=== PATIENT | male | born 1985 | race Caucasian/White ===

== ENCOUNTER 2024-03-30 16:18 | Inpatient (IN) | payer MEDICAID, SELFPAY ==
--- NOTE | ~2024-03-30 | CT_ITS ---
CLINICAL HISTORY: elevated lipase, +etoh, epigastric pain CT abdomen and pelvis with contrast Comparison: None Findings: No consolidation or effusion. There is hepatic steatosis. There are 2 separate foci of what is likely transient intussusception 1 in the right upper quadrant best seen on image number 46 of series number 2 and a 2nd in the midline pelvis best seen on image number 56 of series number 2. There is no associated bowel obstruction however there are thickened small bowel folds particularly in the upper abdomen suggesting enteritis. Pelvic contents unremarkable. Normal appendix. The bones are intact. The rest of the GI tract is unremarkable. IMPRESSION: Two areas of transient intussusception as described above associated with thickened small bowel loops particularly in the upper abdomen possibly indicating enteritis. This has been described in patients with celiac disease also associated with elevated lipase. There are no signs of pancreatitis. This document has been electronically signed by: Santy rGiffiths MD on 03/30/2024 20:37:50
--- NOTE | 2024-03-30 16:51 | ED.ALCOHOL ---
HPI - Alcohol General Chief Complaint: Psychiatric Symptoms Stated Complaint: LOOKING FOR DETOX FROM ALCOHOL Time Seen by Provider: 03/30/24 16:32 Source: patient, EMS, RN notes reviewed and old records reviewed Mode of arrival: EMS History of Present Illness ED Provider: Fartun Ventura PA-C HPI narrative: 38-year-old male with a past medical history of ETOH abuse/dependence presenting to the ED via EMS complaining of ETOH intoxication, increasing depression with vague SI and requesting detox. States he is new to the area, originally from [place], did secure a detox bed today in [place], however missed his transportation and an ambulance showed up instead. Admits to drinking about 12 shots daily, last drink at 14:00. Does report history of ETOH withdrawal, denies withdrawal seizures or hallucinations. Denies active drug use other than marijuana, states used to use other illicit substances in the past. Denies known injury/trauma or fall or HI Related Data Allergies Allergy/AdvReac Type Severity Reaction Status Date / Time No Known Allergies Allergy Verified 03/30/24 16:56 Review of Systems Review of Systems: Yes all other systems are reviewed and are negative Constitutional: Constitutional: Reports as per HPI [facility] Past Medical History Attestation statement: The following information was validated with the patient. Source: old records reviewed Social History Social History Advance Directives: No Advance Directives Information Provided: No Physical Exam ED Vital Signs: Vital Signs - 24 hr 03/30/24 16:53 03/30/24 21:03 Temperature 98.1 F 98.7 F Pulse Rate 84 99 Respiratory Rate 16 16 Blood Pressure 119/81 137/97 H Pulse Oximetry 98 95 Oxygen Delivery Method Room Air Room Air BMI result Body Mass Index 23.7 Const Other: + ETOH odor on breath General: cooperative, healthy appearing and no acute distress Orientation/consciousness: patient oriented x3 HENMT Head: Yes normal to inspection and Yes atraumatic Ears: hearing grossly normal bilaterally General nose exam: Normal external nose present Face and sinus: Yes normal facial exam Eyes General: appearance normal, both eyes and all related structures EOM: EOMs intact bilaterally Neck Neck: Yes normal visual inspection and Yes no meningeal signs Resp Effort & Inspection: normal respiratory effort and no respiratory distress Cardio Rate: regular rate GI Inspection: Yes normal to inspection Palpation (GI): Soft to palpation, Tenderness to palpation present (GI) in the epigastrum; with no rebound tenderness, no guarding and not rigid Skin Rashes: no rashes Wounds: no wounds Neuro General: patient oriented x3, tone normal, moves all extremities, no meningeal signs and CN's II-XI intact bilaterally Cranial nerves: Yes CN's II-XII intact bilaterally Extrem General: Yes normal to inspection Course Course Course Narrative: -ethanol 492 -1821--AST/ALT elevated likely from chronic ETOH use. Lipase elevated to 143 > due to patient's epigastric tenderness, and now reported nausea will obtain CT AP for further eval to rule out pancreatitis 2041-- CT abdomen pelvis w IV con IMPRESSION: Two areas of transient intussusception as described above associated with thickened small bowel loops particularly in the upper abdomen possibly indicating enteritis. This has been described in patients with celiac disease also associated with elevated lipase. There are no signs of pancreatitis. > will consult General surgery, Dr. Bartlett > will consult on patient upon admission. Case discussed with hospitalist, Dr. Hurst Medical Decision Making Medical Decision Making MDM Narrative: 38-year-old male with a past medical history of ETOH abuse/dependence presenting to the ED via EMS complaining of ETOH intoxication, increasing depression with vague SI and requesting detox. On exam vital signs stable, NAD, nontoxic appearing, EtOH odor on breath, no evidence of trauma. + vague SI with depression. Abdomen is soft with mild epigastric tenderness > patient attributes this to ulcer. Concern for ETOH dependence/intoxication. Rule out metabolic abnormalities. No evidence of ETOH withdrawal at this time. Concern for possible pancreatitis lower suspicion for cholecystitis/lithiasis at this time Plan: Labs, WOOD, CARE team consult, observe and re-evaluate for clinical sobriety Please refer to course for remaining clinical decision making, interpretation of labs/imaging results, and discussions with consultants and/or family members. Differential Diagnosis Differential Diagnoses: The differential diagnosis associated with the presentation includes As above Admission/Observation Consideration of admission/observation: Escalation of care including admission/observation considered Consult Healthcare Provider Management of the patient was discussed with: Chief Radiology and Behavioral Health Provider Lab Data [facility] Lab Attestation statement: I reviewed the patient's lab results. 03/30/24 17:07 03/30/24 17:07 Labs: Lab Results 03/30/24 03/30/24 Range/Units 17:07 19:23 WBC 4.5 L (4.8-10.8) X10*3/uL RBC 4.74 (4.60-5.80) X10*6/uL Hgb 15.3 (14.0-18.0) g/dl Hct 43.6 (42.0-52.0) % MCV 92.0 (80.0-98.0) fL MCH 32.3 (27.0-33.0) pg MCHC 35.1 (31.0-36.0) g/dl RDW 12.6 (11.0-16.0) % Plt Count 148 L (160-400) X10*3/uL MPV 9.7 (9.4-12.4) fL Immature Gran % (Auto) 0.2 (0.0-0.4) % Neut % (Auto) 61.3 (45-73) % Lymph % (Auto) 31.1 (20-40) % [place] % (Auto) 5.6 (2-11) % Eos % (Auto) 0.9 (0-4) % Baso % (Auto) 0.9 (0-2) % Lymph # (Auto) 1.4 (1.2-4.9) X10*3/uL [place] # (Auto) 0.3 (0.1-1.2) X10*3/uL Eos # (Auto) 0.0 (0.0-0.4) X10*3/uL Baso # (Auto) 0.0 (0.0-0.2) X10*3/uL Abs Immat Gran (auto) 0.01 (0.00-0.03) X10*3/uL Absolute Neuts (auto) 2.7 (2.0-8.3) x10*3/uL Absolute Nucleated RBC 0.000 (0.0-0.012) X10*3/uL Nucleated RBC % (auto) 0.0 (0.0-0.2) /100WBC Sodium 142 (135-145) mmol/L Potassium 3.9 (3.3-5.1) mmol/L Chloride 102 (96-108) mmol/L Carbon Dioxide 29 (22-29) mmol/L Anion Gap 15 (12-20) BUN 8 L (9-16) mg/dL Creatinine 0.69 (0.5-1.4) mg/dL Estim Creat Clear Calc 152.8 Estimated GFR > 60 Random Glucose 98 (60-115) mg/dL Calcium 8.6 (8.4-10.2) mg/dL Magnesium 2.3 (1.6-2.6) mg/dL Total Bilirubin 0.5 (0.0-1.0) mg/dL Direct Bilirubin 0.2 (0.0-0.5) mg/dL AST 154 H (5-37) U/L ALT 86 H (0-40) U/L Alkaline Phosphatase 66 (39-117) U/L Total Protein 7.8 (6.5-8.0) g/dL Albumin 4.4 (3.5-5.0) g/dL Lipase 143 H (8-78) U/L Salicylates < 5.0 L (15-30) mg/dL Urine Opiates Screen Not Detected (Not Detect) Ur Buprenorphine Scrn Not Detected (Not Detect) ng/mL Ur Oxycodone Screen Not Detected (Not Detect) ng/mL Urine Methadone Screen Not Detected (Not Detect) ng/mL Urine Fentanyl Screen Not Detected (Not Detect) Acetaminophen < 3 (<30) mcg/mL Ur Barbiturates Screen Not Detected (Not Detect) Ur Phencyclidine Scrn Not Detected (Not Detect) Ur Amphetamines Screen Not Detected (Not Detect) U Benzodiazepines Scrn POSITIVE H (Not Detect) Urine Cocaine Screen Not Detected (Not Detect) U Marijuana (THC) Screen POSITIVE H (Not Detect) Ethyl Alcohol 492 H* mg/dL Radiology Impression Discussion of test interpretation with radiology: I have reviewed the radiologist's reading. Independent Historian Clinical information obtained from an independent historian. History obtained from or confirmed by: EMS External Record Review External record reviewed: Inpatient record, Office record, Outpatient record, Prior outpatient labs, Prior outpatient radiology, Primary care record and Outside ED record Tests considered The following testing was considered but not selected: As above Prescription Management I considered prescription management with: Other Chronic Conditions Patient?s care impacted by: Other Social Determinants Patient?s care significantly limited by Social Determinants of Health including: Other Social Determinant of Health Medications Administered Generic Name Dose Route Start Last Admin Trade Name Freq PRN Reason Stop Dose Admin Lorazepam 1 mg 03/30/24 16:50 03/30/24 19:50 Lorazepam 1 Mg Tablet PO 1 mg Q4H PRN Administration Alcohol Withdrawal Discontinued Medications Generic Name Dose Route Start Last Admin Trade Name Curt PRN Reason Stop Dose Admin Sodium Chloride 1,000 mls @ 999 mls/hr 03/30/24 18:30 03/30/24 19:39 Ns IV 03/30/24 19:30 999 mls/hr .Q1H1M FERMIN Administration Iohexol 100 ml 03/30/24 19:31 03/30/24 19:32 Iohexol 350 Mg/Ml 100 Ml Infus..Btl IV 03/30/24 19:32 85 ml ONCE ONE Administration Ketorolac Tromethamine 15 mg 03/30/24 18:21 03/30/24 19:39 Ketorolac Tromethamine 15 Mg/Ml Vial IVPUSH 03/30/24 18:22 15 mg ONCE ONE Administration Ondansetron HCl 4 mg 03/30/24 18:21 03/30/24 19:39 Ondansetron Hcl 4 Mg/2 Ml Vial IVPUSH 03/30/24 18:22 4 mg ONCE ONE Administration Discharge Plan Discharge Clinical Impression: Intussusception of small bowel, Alcohol intoxication, Depressed, Elevated lipase Patient Disposition: Admitted As Inpatient Print Language: [place]
[2024-03-30 16:53] VITALS: BP 119/81; PULSE 84; RESP 16; TEMP 36.7; O2SAT 98; BMI 23.7
[2024-03-30 17:11] LABS: MANUAL DIFF FLAG NO
[2024-03-30 17:27] LABS: Alanine Aminotransferase 86 U/L (0-40); Albumin Level 4.4 g/dL (3.5-5.0); Alkaline Phosphatase 66 U/L (39-117); Anion Gap 15 (12-20); Aspartate Amino Transferase 154 U/L (5-37); Bilirubin Direct 0.2 mg/dL (0.0-0.5); Bilirubin Total 0.5 mg/dL (0.0-1.0); Blood Urea Nitrogen 8 mg/dL (9-16); Calcium 8.6 mg/dL (8.4-10.2); Carbon Dioxide 29 mmol/L (22-29); Chloride 102 mmol/L (96-108); Creatinine Clr Calc Pharmacy 152.8; Estimated Glomerular Filt Rate > 60; Ethanol 492 mg/dL; Glucose Random 98 mg/dL (60-115); Lipase 143 U/L (8-78); Magnesium 2.3 mg/dL (1.6-2.6); Potassium 3.9 mmol/L (3.3-5.1); Sodium 142 mmol/L (135-145); Total Protein 7.8 g/dL (6.5-8.0)
[2024-03-30 17:28] LABS: Acetaminophen LAB < 3 mcg/mL (<30); Salicylate < 5.0 mg/dL (15-30)
[2024-03-30 17:35] LABS: Basophils Percent Auto 0.9 % (0-2); Eosinophils Percent Auto 0.9 % (0-4); Hematocrit 43.6 % (42.0-52.0); Hemoglobin 15.3 g/dl (14.0-18.0); Imm Gran Abs Auto 0.01 X10*3/uL (0.00-0.03); Imm Gran Pct Auto 0.2 % (0.0-0.4); Lymphocytes Absolute Auto 1.4 X10*3/uL (1.2-4.9); Lymphocytes Percent Auto 31.1 % (20-40); Mean Corpuscular HGB Conc 35.1 g/dl (31.0-36.0); Mean Corpuscular Hemoglobin 32.3 pg (27.0-33.0); Mean Platelet Volume 9.7 fL (9.4-12.4); Monocytes Absolute Auto 0.3 X10*3/uL (0.1-1.2); Monocytes Percent Auto 5.6 % (2-11); Neutrophils Absolute Auto 2.7 x10*3/uL (2.0-8.3); Neutrophils Percent Auto 61.3 % (45-73); Platelet Count 148 X10*3/uL (160-400); Red Blood Count 4.74 X10*6/uL (4.60-5.80); Red Cell Distribution Width 12.6 % (11.0-16.0); White Blood Count 4.5 X10*3/uL (4.8-10.8)
[2024-03-30] MEDS: iohexoL 350 MG/ML 100 ML INFUS..BTL IV (19:32)
--- NOTE | 2024-03-30 19:32 | PC.NURSE ---
pt to ct at this time. jesse jeffers
[2024-03-30] MEDS: Ketorolac Tromethamine 15 MG/ML VIAL IVPUSH (19:39)
[2024-03-30] MEDS: 0.9 % Sodium Chloride 1,000 ML 999 ML IV (19:39)
[2024-03-30] MEDS: ondansetron HCL 4 MG/2 ML VIAL IVPUSH (19:39)
[2024-03-30 19:42] LABS: Amphetamine Screen Urine Not Detected (Not Detect); Barbiturates, Urine Not Detected (Not Detect); Benzodiazepines Screen Urine POSITIVE (Not Detect); Buprenorphine Scr Not Detected (Not Detect); Cannabinoid Screen Urine POSITIVE (Not Detect); Cocaine Screen Urine Not Detected (Not Detect); Fentanyl, urine Not Detected (Not Detect); Methadone Screen, Urine Not Detected (Not Detect); Opiate Screen Urine Not Detected (Not Detect); Oxycodone Screen Urine Not Detected (Not Detect); Phencyclidine Screen Urine Not Detected (Not Detect)
[2024-03-30] MEDS: LORazepam 1 MG TABLET PO (19:50)
[2024-03-30 21:03] VITALS: BP 137/97; PULSE 99; RESP 16; TEMP 37.1; O2SAT 95
--- NOTE | 2024-03-30 21:03 | PM.IMHP ---
History of Present Illness Date of Service: 03/30/24 Attending physician on admission: Calvin Cuellar Chief Complaint: Alcohol detox Pt is a 38-year-old male with a PMH significant for?alcohol use disorder with hx of withdrawal who presents to the ED seeking detox. Pt reports has been on a ?[place]? for awhile, drinking 12-14 shots of vodka daily for the past 4 months. Pt reports he is has had increasing depression and ?dark thoughts? with vague SI. Pt however denies any specific plan and reports he does not intend to follow through with any harmful thoughts. Pt was supposed to go to detox at a facility in [place], however missed his transportation there which prompted his girlfriend to call 911 to bring him to the hospital. The pt reports has had some nausea and vomiting, especially with p.o. intake. Reports he has not been able to eat much of anything except soup recently. Also complains of substernal epigastric burning sensation associated with p.o. intake. Also reports for the past few weeks has gotten intermittent lower abdominal stomach cramps that are sharp and shooting. Has also been experiencing some loose stool. Denies tremors. No auditory, visual, or tactile hallucinations. No diaphoresis. Some increase in anxiety. Denies chest pain/pressure, palpitations. No fever, chills. Denies headache. In the ED pt was tachycardic up to 99 and mildly hypertensive at 137/97. Labs were significant for lipase 143, AST 154, ALT 86. Ethyl alcohol level 492. No significant electrolyte abnormalities. Renal function WNL. CT?of abdomen and pelvis found 2 areas of transient intestine exception with question of enteritis. Pt was treated with IVF, ketorolac, ondansetron, and lorazepam. Pt will be admitted to the hospital for treatment and further evaluation of question of intussusception and impending alcohol withdrawal. Review of Systems Review of Systems: Negative except for that which is stated in the [facility] Medical History (Updated 03/30/24 @ 21:53 by RICHARD Mohamud) Alcohol use disorder Social History Alcohol intake: current Alcohol intake frequency: other Alcohol type: hard liquor Substance Use Type: Marijuana Meds Allergies Allergy/AdvReac Type Severity Reaction Status Date / Time No Known Allergies Allergy Verified 03/30/24 16:56 Active Medications: Current Medications Lorazepam (Lorazepam 1 Mg Tablet) 1 mg PO Q4H PRN PRN Reason: Alcohol Withdrawal Last Admin: 03/30/24 19:50 Dose: 1 mg Home Medications ?Medication ?Instructions ?Recorded ?Confirmed ?Last Taken ?Type No Known Home Meds 03/30/24 03/30/24 Unknown History Physical Exam Vital Signs and Narrative: Vital Signs: Last Vital Signs Temp 98.1 F 03/30/24 16:53 Pulse 84 03/30/24 16:53 Resp 16 03/30/24 16:53 BP 119/81 03/30/24 16:53 Pulse Ox 98 03/30/24 16:53 O2 Del Method Room Air 03/30/24 16:53 BMI result Body Mass Index 23.7 General: AOx3, no acute distress Resp: CTA bilaterally CVS: S1, S2, RRR GI: +BS, NT, no distention Skin: Warm, dry Neuro: Cranial nerves II-XII grossly intact bilaterally. Motor grossly intact bilaterally. No upper extremity tremors noted. No tongue fasciculations. Pt not Extremities: No edema Psych: Appropriate affect Results Labs 03/30/24 17:07 03/30/24 17:07 Labs: Laboratory Results - last 24 hr 03/30/24 03/30/24 17:07 19:23 MCV 92.0 MCH 32.3 MCHC 35.1 RDW 12.6 Plt Count 148 L MPV 9.7 Immature Gran % (Auto) 0.2 Neut % (Auto) 61.3 Lymph % (Auto) 31.1 [place] % (Auto) 5.6 Eos % (Auto) 0.9 Baso % (Auto) 0.9 Lymph # (Auto) 1.4 [place] # (Auto) 0.3 Eos # (Auto) 0.0 Baso # (Auto) 0.0 Abs Immat Gran (auto) 0.01 Absolute Neuts (auto) 2.7 Absolute Nucleated RBC 0.000 Nucleated RBC % (auto) 0.0 Anion Gap 15 Estim Creat Clear Calc 152.8 Estimated GFR > 60 Random Glucose 98 Calcium 8.6 Magnesium 2.3 Total Bilirubin 0.5 Direct Bilirubin 0.2 AST 154 H ALT 86 H Alkaline Phosphatase 66 Total Protein 7.8 Albumin 4.4 Lipase 143 H Salicylates < 5.0 L Urine Opiates Screen Not Detected Ur Buprenorphine Scrn Not Detected Ur Oxycodone Screen Not Detected Urine Methadone Screen Not Detected Urine Fentanyl Screen Not Detected Acetaminophen < 3 Ur Barbiturates Screen Not Detected Ur Phencyclidine Scrn Not Detected Ur Amphetamines Screen Not Detected U Benzodiazepines Scrn POSITIVE H Urine Cocaine Screen Not Detected U Marijuana (THC) Screen POSITIVE H Ethyl Alcohol 492 H* Assessment and Plan (1) Intussusception of small bowel: Status: Acute Plan Pt is a 38-year-old male with a PMH significant for?alcohol use disorder with hx of withdrawal who presents to the ED seeking detox. Pt will be admitted to the hospital for treatment and further evaluation of question of intussusception and impending alcohol withdrawal. Alcohol use disorder With likely impending alcohol withdrawal Pt has been drinking heavily with the past 4 weeks Hx of withdrawal, no hx of withdrawal seizures or auditory/visual/tactile hallucinations Phenobarb protocol started in the ED Daily multivitamin, folic acid, thiamine Protonix CIWA Follow lytes, Mag Question of intussusception CT of abdomen/pelvis showing 2 areas of likely transient intussusception Pt with intermittent lower abdominal sharp and stabbing pain and associated loose stools Abdominal exam benign Currently mild nausea, no vomiting Clear liquid diet now, NPO after midnight General surgery consult Full Code Attending:?Dr. Hurst DVT Prophylaxis: Lovenox Pt will require a hospitalization of at least two nights for treatment and further evaluation of likely transient intussusception and impending alcohol withdrawal. Pt will require hospital level care for administration of phenobarb protocol, close monitoring of labs and cardiac function, as well as specialist consultation general surgery. Quality Stroke Does the patient have a stroke diagnosis?: No VTE Prior VTE?: No VTE Risk Level:: Medical - moderate - high VTE Device Contraindication: Treatment Not Indicated VTE Drug Contraindication: N/A - Med Ordered
--- NOTE | 2024-03-30 21:11 | PC.NURSE ---
pt has old bruising to his left lower back and right mid back. pt states these are old and the staging of the bruising reflexs this. pt states his girlfriend would know more due to the pt was intoxicated for both falls. pt does smoke day almost daily. pt drank vodka on pint prior to arrival. pt seeking detox. plan is to admit pt for medical. pt states his stools have only been watery and explains the dx of his condition. pt is calm and cooperative, sitter at bedside arms length away and pt is having pleasant converstaion with sitter.
--- NOTE | 2024-03-30 21:33 | PHA.MEDREC ---
Pharmacy Consult ? Medication Reconciliation Pharmacy has completed the medication reconciliation. Spoke to patient to confirm med list. Patient states he should be taking Gabapentin 600 mg TID, however he has been off of his medications for over 6 months.
[2024-03-30 23:00] VITALS: BP 137/97; PULSE 99; RESP 16; TEMP 37.1
[2024-03-30 23:01] VITALS: BP 137/97; PULSE 99; RESP 16; TEMP 37.1
[2024-03-30] MEDS: PHENobarbitaL sodium 130 MG/ML IM ONCE 292 MG IM (23:02)
[2024-03-30] MEDS: Pantoprazole Sodium 40 MG/10 ML VIAL IVPUSH (23:04)
[2024-03-30] MEDS: Thiamine HCL 100 MG in 0.9 % Sodium Chloride 100 ML 202 MG IV (23:05)
[2024-03-30 23:29] VITALS: BP 119/74; PULSE 95; RESP 18; TEMP 37.4; O2SAT 98
[2024-03-30] MEDS: Dextrose 5 % and 0.45 % NaCl 1,000 ML 100 ML IVCONT (23:37)
[2024-03-31] VITALS (7 sets, daily range): BP systolic 102–150; BP diastolic 69–89; PULSE 80–99; RESP 12–20; TEMP 36.2–36.9; O2SAT 95–98
--- NOTE | 2024-03-31 02:58 | MHC.EDTECH ---
Pt triaged 03/30/24 @ 1012, Pt initially started in pod and brought to main ED. No belonging list done, no note on this. T/w found belongings in 5 locker labeled - bag with a pair of shoes in it, bag full of clothes and backpack. Did not open any belongings. Pt medically admitted, so belongings moved to shelf 3 in health systemt. Laura DOMINGUEZ aware.
[2024-03-31] MEDS: PHENobarbitaL sodium 130 MG/ML VIAL IM Q3Hx2 219 MG IM ×2 (03:05→06:12)
--- NOTE | 2024-03-31 04:21 | PC.NURSE ---
pt belonging were in the [facility], no lable in the book. belongings taken from the pod to the [facility] and now up with the pt to [id number]. transport with nancy and this alexis Sanchez.
--- NOTE | 2024-03-31 04:27 | PC.NURSE ---
pt transfered with security and tech to 385
--- NOTE | 2024-03-31 04:57 | PC.ADMIT ---
Patient arrived to med/surg unit at approximately 0430 with sitter for SI. He is pleasant, calm, cooperative. Scoring a 5 on the CIWA scale. He reports first time getting phenobarbital and it made him sleepy. He denies ever having a seizure. Reports living with girlfriend in a home. Daily 12 shot/day drinker and smokes marijuana, not cigarettes. Does not want nicotine replacement or the flu shot. I hate needles . He reports moving to [place] 6 months ago and just got insurance. He wasnt taking any of the meds he used to take. He reports Gabapentin really helped him with anxiety. He states he doesnt trust himself with anything stronger. He denies current thoughts of SI. He reports his only concern is that his bowels have been gross lately and that he has to defacate a few times a day, never completely emptying with ribbon like greasy stool. He states he thinks he might have an ulcer. He is aware of the CT scan and the consult for General Surgery and why he cannot take anything by mouth currently. His VSS, lungs are cta, abdomen is soft with slight tenderness in his epigastric region. No issues voiding or ambulating. No acute events. Will continue to monitor.
[2024-03-31 06:34] LABS: MANUAL DIFF FLAG NO
[2024-03-31 06:48] LABS: Basophils Percent Auto 0.7 % (0-2); Eosinophils Absolute Auto 0.1 X10*3/uL (0.0-0.4); Eosinophils Percent Auto 1.6 % (0-4); Hematocrit 37.1 % (42.0-52.0); Hemoglobin 12.6 g/dl (14.0-18.0); Imm Gran Abs Auto 0.01 X10*3/uL (0.00-0.03); Imm Gran Pct Auto 0.2 % (0.0-0.4); Lymphocytes Percent Auto 36.4 % (20-40); Mean Corpuscular Hemoglobin 31.5 pg (27.0-33.0); Mean Corpuscular Volume 92.8 fL (80.0-98.0); Monocytes Absolute Auto 0.4 X10*3/uL (0.1-1.2); Monocytes Percent Auto 6.3 % (2-11); Neutrophils Percent Auto 54.8 % (45-73); Red Cell Distribution Width 12.5 % (11.0-16.0); White Blood Count 5.5 X10*3/uL (4.8-10.8)
[2024-03-31 07:03] LABS: Alanine Aminotransferase 66 U/L (0-40); Albumin Level 3.6 g/dL (3.5-5.0); Alkaline Phosphatase 53 U/L (39-117); Anion Gap 13 (12-20); Aspartate Amino Transferase 111 U/L (5-37); Bilirubin Total 0.8 mg/dL (0.0-1.0); Blood Urea Nitrogen 9 mg/dL (9-16); Calcium 7.1 mg/dL (8.4-10.2); Carbon Dioxide 26 mmol/L (22-29); Chloride 101 mmol/L (96-108); Creatinine Clr Calc Pharmacy 152.8; Estimated Glomerular Filt Rate > 60; Glucose Random 79 mg/dL (60-115); Magnesium 1.7 mg/dL (1.6-2.6); Potassium 3.4 mmol/L (3.3-5.1); Sodium 137 mmol/L (135-145); Total Protein 6.2 g/dL (6.5-8.0)
[2024-03-31 07:38] LABS: Mean Platelet Volume 9.8 fL (9.4-12.4); Platelet Count 96 X10*3/uL (160-400)
[2024-03-31] MEDS: Pantoprazole Sodium 40 MG/10 ML VIAL IVPUSH (08:38)
[2024-03-31] MEDS: Dextrose 5 % and 0.45 % NaCl 1,000 ML 100 ML IVCONT ×2 (08:38→18:35)
[2024-03-31] MEDS: Enoxaparin Sodium 40 MG/0.4 ML SYRINGE SUBCUT (08:38)
[2024-03-31] MEDS: Multivitamin TABLET 1 TAB PO (08:40)
[2024-03-31] MEDS: Thiamine HCL 100 MG in 0.9 % Sodium Chloride 100 ML 202 MG IV (08:46)
[2024-03-31] MEDS: LORazepam 1 MG TABLET PO ×2 (08:46→20:22)
--- NOTE | 2024-03-31 11:01 | MHC.CM.PN ---
CM ATTEMPTED TO MEET WITH PT X3, PT OUT OF ROOM CM WILL REVISIT
--- NOTE | 2024-03-31 12:25 | PM.CNGS ---
History of Present Illness Consult details Consult date: 03/31/24 <Essence Owen PA-C - Last Filed: 03/31/24 12:39> Reason for consult: other (question intussusception ) <Essence Owen PA-C - Last Filed: 03/31/24 12:39> Requesting physician: Tasha Lee <Essence Owen PA-C - Last Filed: 03/31/24 12:39> Narrative: 38-year-old male with a PMH significant for alcohol use disorder with hx of withdrawal who initally presented to the ED seeking detox. Pt reports has been drinking 12-14 shots of vodka daily for the past 4 months and then beer over the past week. He reported some abdominal pain on presentation and therefore CT scan abd pelvis was obtained which showed 2 separate areas of target sign and intussusception, in the RUQ and midline pelvis, with mild wall thickening, without proximally dilated bowel loops, distended stomach. Given the CT findings general surgery was consulted. He reports intermittent mild crampy lower abd pain that was relieved by moving his bowels in the beginning of the week. This has resolved. He then reports some mild epigastric pain later in the week associated with some nausea which he contributes to switching to beer and the carbonation. He denies sick contacts. The diarrhea has since resolved and he has not vomited in a few days. This morning he denies any abdominal pain currently. He had a normal BM yesterday and has been passing flatus consistently. He feels hungry. He reports a very distant hx of hernia repair with mesh as a young child, unsure what kind. <Essence Owen PA-C - Last Filed: 03/31/24 12:39> Review of Systems Review of Systems: Yes all other systems are reviewed and are negative <Essence Owen PA-C - Last Filed: 03/31/24 12:39> [facility] Past Medical History Medical History: Medical History Alcohol use disorder <Essence Owen PA-C - Last Filed: 03/31/24 12:39> Social History Social History: Social History Household Members: Significant Other Housing: House Do you presently have visiting nurse or other home services: No Alcohol intake: current Alcohol intake frequency: other Alcohol type: hard liquor Patient Tobacco Use Status: Never used Tobacco Second Hand Smoke Exposure: No Substance Use Type: Marijuana <Essence Owen PA-C - Last Filed: 03/31/24 12:39> Meds Allergies/Adverse reactions: Allergies Allergy/AdvReac Type Severity Reaction Status Date / Time No Known Allergies Allergy Verified 03/30/24 16:56 <Essence Owen PA-C - Last Filed: 03/31/24 12:39> Active Medications: Current Medications Acetaminophen (Acetaminophen 325 Mg Tablet) 650 mg PO Q6H PRN PRN Reason: Pain, Mild 1-3,fever,headache Enoxaparin Sodium (Enoxaparin Sodium 40 Mg/0.4 Ml Syringe) 40 mg SUBCUT Q24H [facility] Last Admin: 03/31/24 08:38 Dose: 40 mg Dextrose/Sodium Chloride (D51/2ns) 1,000 mls @ 100 mls/hr IVCONT .Q10H [facility] Last Admin: 03/31/24 08:38 Dose: 100 mls/hr Thiamine HCl 100 mg/ Sodium (Chloride) 101 mls @ 202 mls/hr IV DAILY [facility] Last Infusion: 03/31/24 09:31 Dose: Infused Lorazepam (Lorazepam 1 Mg Tablet) 1 mg PO Q4H PRN PRN Reason: Alcohol Withdrawal Last Admin: 03/31/24 08:46 Dose: 1 mg Multivitamins/Vitamin C (Multivitamin Tablet) 1 tab PO DAILY [facility] Last Admin: 03/31/24 08:40 Dose: 1 tab Ondansetron HCl (Ondansetron Hcl 4 Mg/2 Ml Vial) 4 mg IVPUSH Q8H PRN PRN Reason: Nausea and Vomiting Pantoprazole Sodium (Pantoprazole Sodium 40 Mg/10 Ml Vial) 40 mg IVPUSH BID@0630,1630 [facility] Last Admin: 03/31/24 08:38 Dose: 40 mg Pharmacy Consult (Consult Rx Etoh Phenob Im/Po) 1 each MISCELLANE ONCE PRN; Protocol PRN Reason: Consult order Phenobarbital (Phenobarbital 15 Mg Tablet) 45 mg PO BID@1100,2300 [facility]; Protocol Stop: 04/01/24 23:01 Phenobarbital (Phenobarbital 30 Mg Tablet) 30 mg PO BID [facility]; Protocol Stop: 04/03/24 21:01 Phenobarbital (Phenobarbital 30 Mg Tablet) 30 mg PO DAILY [facility]; Protocol Stop: 04/05/24 09:01 Sodium Chloride (0.9 % Sodium Chloride Flush 3 Ml Syringe) 3 ml IVFLUSH QSHIFT [facility] Last Admin: 03/31/24 08:40 Dose: Not Given <TOYA Estrada Last Filed: 03/31/24 12:39> Home medications: Home Medications ?Medication ?Instructions ?Recorded ?Confirmed ?Last Taken ?Type No Known Home Meds 03/30/24 03/30/24 Unknown History <TOYA Estrada Last Filed: 03/31/24 12:39> Physical Exam Vital Signs: Vital Signs: Last Vital Signs Temp 98.1 F 03/31/24 12:20 Pulse 86 03/31/24 12:20 Resp 12 03/31/24 12:20 BP 131/78 03/31/24 12:20 Pulse Ox 95 03/31/24 12:20 O2 Del Method Room Air 03/31/24 12:20 BMI result Body Mass Index 23.7 <TOYA Estrada Last Filed: 03/31/24 12:39> Const: General: comfortable, no acute distress and alert; No ill appearing <TOYA Estrada Last Filed: 03/31/24 12:39> Orientation/consciousness: patient oriented x3 <TOYA Estrada Last Filed: 03/31/24 12:39> Resp: Effort & Inspection: normal respiratory effort <TOYA Estrada Last Filed: 03/31/24 12:39> GI: Inspection: Yes normal to inspection, No distended and No scar <TOYA Estrada Last Filed: 03/31/24 12:39> Palpation (GI): Soft to palpation, nontender, no guarding and not rigid <TOYA Estrada Last Filed: 03/31/24 12:39> Percussion: Yes normal to percussion <TOYA Estrada Last Filed: 03/31/24 12:39> Skin: General skin exam: no rashes or lesions noted <TOYA Estrada Last Filed: 03/31/24 12:39> Neuro: General: patient oriented x3 and moves all extremities <TOYA Estrada Last Filed: 03/31/24 12:39> Results Labs Result diagrams: 03/31/24 06:08 03/31/24 06:08 <TOYA Estrada Last Filed: 03/31/24 12:39> Labs: Abnormal lab results 03/30/24 03/30/24 03/31/24 Range/Units 17:07 19:23 06:08 WBC 4.5 L (4.8-10.8) X10*3/uL RBC 4.00 L (4.60-5.80) X10*6/uL Hgb 12.6 L (14.0-18.0) g/dl Hct 37.1 L (42.0-52.0) % Plt Count 148 L 96 L D (160-400) X10*3/uL BUN 8 L (9-16) mg/dL Calcium 7.1 L D (8.4-10.2) mg/dL AST 154 H 111 H (5-37) U/L ALT 86 H 66 H (0-40) U/L Total Protein 6.2 L (6.5-8.0) g/dL Lipase 143 H (8-78) U/L Salicylates < 5.0 L (15-30) mg/dL U Benzodiazepines Scrn POSITIVE H (Not Detect) U Marijuana (THC) Screen POSITIVE H (Not Detect) Ethyl Alcohol 492 H* mg/dL Short CBC 03/30/24 03/31/24 Range/Units 17:07 06:08 WBC 4.5 L 5.5 (4.8-10.8) X10*3/uL Hgb 15.3 12.6 L (14.0-18.0) g/dl Hct 43.6 37.1 L (42.0-52.0) % Plt Count 148 L 96 L D (160-400) X10*3/uL BMP 03/30/24 03/31/24 17:07 06:08 Sodium 142 137 Potassium 3.9 3.4 Chloride 102 101 Carbon Dioxide 29 26 BUN 8 L 9 Creatinine 0.69 0.69 Calcium 8.6 7.1 L D Liver Function 03/30/24 03/31/24 Range/Units 17:07 06:08 Total Bilirubin 0.5 0.8 (0.0-1.0) mg/dL Direct Bilirubin 0.2 (0.0-0.5) mg/dL AST 154 H 111 H (5-37) U/L ALT 86 H 66 H (0-40) U/L Alkaline Phosphatase 66 53 (39-117) U/L Albumin 4.4 3.6 (3.5-5.0) g/dL All other labs normal. <Essence Owen PA-C - Last Filed: 03/31/24 12:39> Imaging Abdomen CT scan report/results: report reviewed and image reviewed <Essence Owen PA-C - Last Filed: 03/31/24 12:39> Assessment and Plan (1) Intussusception of small bowel: Status: Acute <Essence Owen PA-C - Last Filed: 03/31/24 12:39> Admitted for EtOH intoxication Noted to have target sign and a CT scan of the abdomen - had elevated lipase Patient denies abdominal pain No nausea or vomiting Abdomen soft, benign, nontender, nondistended Clinically not obstructed Intussusception seen likely due to normal peristaltic movement of the small bowel Okay to have clear liquids and slowly advance as tolerated Seen and examined independently <Gal Figueroa MD - Last Filed: 03/31/24 14:12> 38 year old male with hx of ETOH abuse initially seeking detox found to have intussusception on CT scan. He is clinically appearing well and his abdomen is benign, soft, nondistended and completely non tender. Imaging reviewed which does show two areas of target signs with mild wall thickening however there is no dilatation of proximal bowel and he has good air distally in the rectum. No leukocytosis. May have had transient intussusception due to enteritis given his history and the mild wall thickening however he is clinically not obstructed and his symptoms have resolved. Can advance diet to clears and then further as tolerated. Will continue to follow. <Essence Owen PA-C - Last Filed: 03/31/24 12:39> Procedures Date of Service Date of Service: 03/31/24 <Essence Owen PA-C - Last Filed: 03/31/24 12:39> 03/31/24 <Gal Figueroa MD - Last Filed: 03/31/24 14:12>
[2024-03-31] MEDS: PHENobarbitaL 15 MG TABLET 45 MG PO ×2 (13:13→22:47)
--- NOTE | 2024-03-31 15:07 | PM.PSYCN ---
History of Present Illness Date of Service: 03/31/2024 Chief Complaint: Alcohol intoxication, ? intussusception Reason for Consult: SI, intermittent Discussed with referring provider: Yes Sources of Information: patient interviewed, chart reviewed and crisis/core team assessment reviewed HPI Narrative: Mr. Khan is a 38 year-old male with hx of alcohol use disorder, MDD, who self presented to [facility] ED requesting detox. He was admitted medically for phenobarb protocol for alcohol withdrawal, and evaluation of possible intussuspection. BAL 492. Utox positive for canabinoids and benzodiazepines. BAL>400. Pt seen in his room. He reports he has been feeling more depressed in the past 4 months. He reports he recently moved from [place] to [facility]. He does not have health insurance and has not been able to see mental health provider. He endorses depressed mood, anhedonia, hopelessness. He denies any plan or intent to harm himself. He reports he reported suicidal ideation with the hope to get help for both mental health and substance use. He reports he has been drinking daily 10 shots of vodka and beer. No hx of VH/AH. No delusions. Past Psychiatric History: Inpt: reports multiple inpt last one about 2 years ago at [facility]. OP: none Past medication trials: reports he had sexual side effects with most SSRIs. Remeron was helpful. He has been on naltrexon which reports did not make much of a difference. He reports disulfiram helped.. but does not take it when he drinks. Hx of suicide attempts: more than 10 years ago via OD and cutting his wrist. Medical Evaluation Reviewed: Yes [facility] Medical History (Updated 03/31/24 @ 15:52 by Suzanne Meza NP) Alcohol use disorder Diagnostics Vital Signs (24Hr): Vital Signs - 24 hr 03/30/24 16:53 03/30/24 21:03 03/30/24 23:00 Temperature 98.1 F 98.7 F 98.7 F Pulse Rate 84 99 99 Respiratory Rate 16 16 16 Blood Pressure 119/81 137/97 H 137/97 H Pulse Oximetry 98 95 Oxygen Delivery Method Room Air Room Air 03/30/24 23:01 03/30/24 23:29 03/31/24 04:08 Temperature 98.7 F 99.4 F Pulse Rate 99 95 83 Respiratory Rate 16 18 14 Blood Pressure 137/97 H 119/74 102/69 Pulse Oximetry 98 98 Oxygen Delivery Method Room Air Room Air 03/31/24 04:30 03/31/24 07:49 03/31/24 12:20 Temperature 97.2 F 97.9 F 98.1 F Pulse Rate 80 88 86 Respiratory Rate 18 18 12 Blood Pressure 134/83 117/70 131/78 Pulse Oximetry 97 96 95 Oxygen Delivery Method Room Air Room Air Room Air BMI result Body Mass Index 23.7 Labs 03/31/24 06:08 03/31/24 06:08 Labs: Laboratory Results - last 48 hr 03/30/24 03/30/24 03/31/24 17:07 19:23 06:08 WBC 4.5 L 5.5 RBC 4.74 4.00 L Hgb 15.3 12.6 L Hct 43.6 37.1 L MCV 92.0 92.8 MCH 32.3 31.5 MCHC 35.1 34.0 RDW 12.6 12.5 Plt Count 148 L 96 L D MPV 9.7 9.8 Immature Gran % (Auto) 0.2 0.2 Neut % (Auto) 61.3 54.8 Lymph % (Auto) 31.1 36.4 [place] % (Auto) 5.6 6.3 Eos % (Auto) 0.9 1.6 Baso % (Auto) 0.9 0.7 Lymph # (Auto) 1.4 2.0 [place] # (Auto) 0.3 0.4 Eos # (Auto) 0.0 0.1 Baso # (Auto) 0.0 0.0 Abs Immat Gran (auto) 0.01 0.01 Absolute Neuts (auto) 2.7 3.0 Absolute Nucleated RBC 0.000 0.000 Nucleated RBC % (auto) 0.0 0.0 Sodium 142 137 Potassium 3.9 3.4 Chloride 102 101 Carbon Dioxide 29 26 Anion Gap 15 13 BUN 8 L 9 Creatinine 0.69 0.69 Estim Creat Clear Calc 152.8 152.8 Estimated GFR > 60 > 60 Random Glucose 98 79 Calcium 8.6 7.1 L D Magnesium 2.3 1.7 Total Bilirubin 0.5 0.8 Direct Bilirubin 0.2 AST 154 H 111 H ALT 86 H 66 H Alkaline Phosphatase 66 53 Total Protein 7.8 6.2 L Albumin 4.4 3.6 Lipase 143 H Salicylates < 5.0 L Urine Opiates Screen Not Detected Ur Buprenorphine Scrn Not Detected Ur Oxycodone Screen Not Detected Urine Methadone Screen Not Detected Urine Fentanyl Screen Not Detected Acetaminophen < 3 Ur Barbiturates Screen Not Detected Ur Phencyclidine Scrn Not Detected Ur Amphetamines Screen Not Detected U Benzodiazepines Scrn POSITIVE H Urine Cocaine Screen Not Detected U Marijuana (THC) Screen POSITIVE H Ethyl Alcohol 492 H* Mental Status Exam Mental Status Exam Narrative: Appearance: wearing hospital gown, fair hygiene, unkempt hair, in NAD Behavior: cooperative Psychomotor: mild action tremor bilar Speech: clear, normal rate/rhythm, volume, spontaneous TP: linear TC: wanting help with dual dx Mood: depressed Affect: congruent SI: denies HI: denies VH/AH: none Delusions: none Insight/judgment: poor x 2. Memory/cog: alert, oriented x 4. grossly intact to conversational testing. Medications Medications Current Medications Acetaminophen (Acetaminophen 325 Mg Tablet) 650 mg PO Q6H PRN PRN Reason: Pain, Mild 1-3,fever,headache Enoxaparin Sodium (Enoxaparin Sodium 40 Mg/0.4 Ml Syringe) 40 mg SUBCUT Q24H [facility] Last Admin: 03/31/24 08:38 Dose: 40 mg Dextrose/Sodium Chloride (D51/2ns) 1,000 mls @ 100 mls/hr IVCONT .Q10H [facility] Last Admin: 03/31/24 08:38 Dose: 100 mls/hr Thiamine HCl 100 mg/ Sodium (Chloride) 101 mls @ 202 mls/hr IV DAILY [facility] Last Infusion: 03/31/24 09:31 Dose: Infused Lorazepam (Lorazepam 1 Mg Tablet) 1 mg PO Q4H PRN PRN Reason: Alcohol Withdrawal Last Admin: 03/31/24 08:46 Dose: 1 mg Multivitamins/Vitamin C (Multivitamin Tablet) 1 tab PO DAILY [facility] Last Admin: 03/31/24 08:40 Dose: 1 tab Ondansetron HCl (Ondansetron Hcl 4 Mg/2 Ml Vial) 4 mg IVPUSH Q8H PRN PRN Reason: Nausea and Vomiting Pantoprazole Sodium (Pantoprazole Sodium 40 Mg/10 Ml Vial) 40 mg IVPUSH BID@0630,1630 [facility] Last Admin: 03/31/24 08:38 Dose: 40 mg Pharmacy Consult (Consult Rx Etoh Phenob Im/Po) 1 each MISCELLANE ONCE PRN; Protocol PRN Reason: Consult order Phenobarbital (Phenobarbital 15 Mg Tablet) 45 mg PO BID@1100,2300 [facility]; Protocol Stop: 04/01/24 23:01 Last Admin: 03/31/24 13:13 Dose: 45 mg Phenobarbital (Phenobarbital 30 Mg Tablet) 30 mg PO BID [facility]; Protocol Stop: 04/03/24 21:01 Phenobarbital (Phenobarbital 30 Mg Tablet) 30 mg PO DAILY [facility]; Protocol Stop: 04/05/24 09:01 Sodium Chloride (0.9 % Sodium Chloride Flush 3 Ml Syringe) 3 ml IVFLUSH QSHIFT [facility] Last Admin: 03/31/24 14:04 Dose: Not Given Allergies Allergies Allergy/AdvReac Type Severity Reaction Status Date / Time No Known Allergies Allergy Verified 03/30/24 16:56 Assessment & Plan Assessment & Plan (1) MDD (major depressive disorder), recurrent episode, moderate: Status: Acute Code(s): F33.1 - Major depressive disorder, recurrent, moderate (2) Alcohol use disorder, severe, dependence: Status: Acute Code(s): F10.20 - Alcohol dependence, uncomplicated Plan Mr. Khan is a 38 year-old male with hx of alcohol use disorder, MDD, self presented to [facility] ED asking for detox, medically admitted for phenobarb protocol for alcohol withdrawal. Also has intussesception of small bowel. He reported SI, intermittent and had siter with him. He denies any plan or intent to harm himself. He asks for help connecting with programs for mental health and alcohol use disorder. He reports he used to be on gabapentin which was helpful and would like to resume it. He also reports he was on remeron with good effect. PLAN 1. No need for sitter. No imminent harm to self or others. 2. He is interested in PHP or IOP once medically clear- please consult care team once he is medically clear. 3. restart gabapentin at lower dose 300mg po TID, can increase to 600mg po TID if no over sedation 4. restart remeron 15mg po qhs, can increase in next day or two to 30mg po qhs. Total time managing care of this patient today ____ minutes.
--- NOTE | 2024-03-31 15:27 | HO.ADDICT_ITS ---
History of Present Illness Date of Service: 03/31/24 Chief Complaint: Alcohol intoxication, ? intussusception Reason for Consult: AUD Sources of Information: patient interviewed and chart reviewed HPI Narrative: Patient is a 38 year old male medically admitted with acute alcohol withdrawal and question of intussusception. Consult requested to address alcohol use disorder. Patient seen in room 385. Awake, alert, pleasant and engaged in interview. He reports long history of alcohol use disorder, with several periods of abstinence throughout. Most recently has been drinking at least 12 vodka nips daily. Drinks straight, no mixers. Reports at least 10 ATS admissions for alcohol use Denies any history of seizures or medical previous medical admissions related to alcohol use. Problematic drinking started in his teens following accidental opiate overdose, which resulted in patient d/c opiate use and increasing alcohol use. Strong family history of AUD He is very knowledgeable regarding recovery supports, but he is new to [place] and requesting more local options State he has trialed naltrexone, acamprosate and disulfiram He found disulfiram helpful-- Reports history--depression Previously prescribed mirtazipine and gabapentin which he found helpful Denies any legal issues related to alcohol, but does report relationship impacted by alcohol use. Not employed at the moment--reports he stopped working due to worsening alcohol use Withdrawal well managed with phenobarb protocol mild tremor noted during assessment, denies n/v, headache Review of Systems Constitutional: Reports as per HPI Diagnostics Vital Signs (24Hr): Vital Signs - 24 hr 03/30/24 16:53 03/30/24 21:03 03/30/24 23:00 Temperature 98.1 F 98.7 F 98.7 F Pulse Rate 84 99 99 Respiratory Rate 16 16 16 Blood Pressure 119/81 137/97 H 137/97 H Pulse Oximetry 98 95 Oxygen Delivery Method Room Air Room Air 03/30/24 23:01 03/30/24 23:29 03/31/24 04:08 Temperature 98.7 F 99.4 F Pulse Rate 99 95 83 Respiratory Rate 16 18 14 Blood Pressure 137/97 H 119/74 102/69 Pulse Oximetry 98 98 Oxygen Delivery Method Room Air Room Air 03/31/24 04:30 03/31/24 07:49 03/31/24 12:20 Temperature 97.2 F 97.9 F 98.1 F Pulse Rate 80 88 86 Respiratory Rate 18 18 12 Blood Pressure 134/83 117/70 131/78 Pulse Oximetry 97 96 95 Oxygen Delivery Method Room Air Room Air Room Air BMI result Body Mass Index 23.7 Labs 03/31/24 16:42 03/31/24 06:08 Labs: Laboratory Results - last 48 hr 03/30/24 03/30/24 03/31/24 17:07 19:23 06:08 WBC 4.5 L 5.5 RBC 4.74 4.00 L Hgb 15.3 12.6 L Hct 43.6 37.1 L MCV 92.0 92.8 MCH 32.3 31.5 MCHC 35.1 34.0 RDW 12.6 12.5 Plt Count 148 L 96 L D MPV 9.7 9.8 Immature Gran % (Auto) 0.2 0.2 Neut % (Auto) 61.3 54.8 Lymph % (Auto) 31.1 36.4 [place] % (Auto) 5.6 6.3 Eos % (Auto) 0.9 1.6 Baso % (Auto) 0.9 0.7 Lymph # (Auto) 1.4 2.0 [place] # (Auto) 0.3 0.4 Eos # (Auto) 0.0 0.1 Baso # (Auto) 0.0 0.0 Abs Immat Gran (auto) 0.01 0.01 Absolute Neuts (auto) 2.7 3.0 Absolute Nucleated RBC 0.000 0.000 Nucleated RBC % (auto) 0.0 0.0 Sodium 142 137 Potassium 3.9 3.4 Chloride 102 101 Carbon Dioxide 29 26 Anion Gap 15 13 BUN 8 L 9 Creatinine 0.69 0.69 Estim Creat Clear Calc 152.8 152.8 Estimated GFR > 60 > 60 Random Glucose 98 79 Calcium 8.6 7.1 L D Magnesium 2.3 1.7 Total Bilirubin 0.5 0.8 Direct Bilirubin 0.2 AST 154 H 111 H ALT 86 H 66 H Alkaline Phosphatase 66 53 Total Protein 7.8 6.2 L Albumin 4.4 3.6 Lipase 143 H Salicylates < 5.0 L Urine Opiates Screen Not Detected Ur Buprenorphine Scrn Not Detected Ur Oxycodone Screen Not Detected Urine Methadone Screen Not Detected Urine Fentanyl Screen Not Detected Acetaminophen < 3 Ur Barbiturates Screen Not Detected Ur Phencyclidine Scrn Not Detected Ur Amphetamines Screen Not Detected U Benzodiazepines Scrn POSITIVE H Urine Cocaine Screen Not Detected U Marijuana (THC) Screen POSITIVE H Ethyl Alcohol 492 H* Mental Status Exam Mental Status Exam Patient Appearance: Appropriate Level of Consciousness: Awake, Appropriate and Alert Patient Behavior: Appropriate, Talkative and Cooperative Mood Description: Calm Affect Description: Calm Speech Pattern: Clear Memory Description: Intact Hallucinations: None Delusions: Not Present Thought Process: Intact Thought Content: positive for Intact Judgement: Good Medications Medications Current Medications Acetaminophen (Acetaminophen 325 Mg Tablet) 650 mg PO Q6H PRN PRN Reason: Pain, Mild 1-3,fever,headache Enoxaparin Sodium (Enoxaparin Sodium 40 Mg/0.4 Ml Syringe) 40 mg SUBCUT Q24H [facility] Last Admin: 03/31/24 08:38 Dose: 40 mg Gabapentin (Gabapentin 300 Mg Capsule) 300 mg PO TID [facility] Dextrose/Sodium Chloride (D51/2ns) 1,000 mls @ 100 mls/hr IVCONT .Q10H [facility] Last Admin: 03/31/24 08:38 Dose: 100 mls/hr Thiamine HCl 100 mg/ Sodium (Chloride) 101 mls @ 202 mls/hr IV DAILY [facility] Last Infusion: 03/31/24 09:31 Dose: Infused Lorazepam (Lorazepam 1 Mg Tablet) 1 mg PO Q4H PRN PRN Reason: Alcohol Withdrawal Last Admin: 03/31/24 08:46 Dose: 1 mg Mirtazapine (Mirtazapine 15 Mg Tablet) 15 mg PO BEDTIME [facility] Multivitamins/Vitamin C (Multivitamin Tablet) 1 tab PO DAILY [facility] Last Admin: 03/31/24 08:40 Dose: 1 tab Ondansetron HCl (Ondansetron Hcl 4 Mg/2 Ml Vial) 4 mg IVPUSH Q8H PRN PRN Reason: Nausea and Vomiting Pantoprazole Sodium (Pantoprazole Sodium 40 Mg/10 Ml Vial) 40 mg IVPUSH BID@0630,1630 [facility] Last Admin: 03/31/24 08:38 Dose: 40 mg Pharmacy Consult (Consult Rx Etoh Phenob Im/Po) 1 each MISCELLANE ONCE [facility]N; Protocol PRN Reason: Consult order Phenobarbital (Phenobarbital 15 Mg Tablet) 45 mg PO BID@1100,2300 [facility]; Protocol Stop: 04/01/24 23:01 Last Admin: 03/31/24 13:13 Dose: 45 mg Phenobarbital (Phenobarbital 30 Mg Tablet) 30 mg PO BID [facility]; Protocol Stop: 04/03/24 21:01 Phenobarbital (Phenobarbital 30 Mg Tablet) 30 mg PO DAILY [facility]; Protocol Stop: 04/05/24 09:01 Sodium Chloride (0.9 % Sodium Chloride Flush 3 Ml Syringe) 3 ml IVFLUSH QSHIFT [facility] Last Admin: 03/31/24 14:04 Dose: Not Given Allergies Allergies Allergy/AdvReac Type Severity Reaction Status Date / Time No Known Allergies Allergy Verified 03/30/24 16:56 Assessment & Plan Assessment & Plan (1) Alcohol use disorder, severe, dependence: Status: Acute Code(s): F10.20 - Alcohol dependence, uncomplicated Assessment and Plan: * risk reduction discussion--provided with resources and discussed safer drinking strategies * patient plans to start disulfiram once he gets home. Has a prescription from previous provider * open to receiving follow up call from field reimbursement manager, to determine if he would like to follow up outpatient at [facility] Total time managing care of this patient today __40__ minutes. PMFSH Past Medical History Medical History (Updated 03/31/24 @ 15:52 by Suzanne Meza NP) Alcohol use disorder Social History Social History Household Members: Significant Other Housing: House Do you presently have visiting nurse or other home services: No Alcohol intake: current Alcohol intake frequency: other Alcohol type: hard liquor Patient Tobacco Use Status: Never used Tobacco Second Hand Smoke Exposure: No Substance Use Type: Marijuana
--- NOTE | 2024-03-31 15:52 | P.PNIM_ITS ---
Subjective Subjective Date of Service: 03/31/24 Interval History: seen and examined this morning follow up for n/v/d reporting epigastric abdominal pain, dark liquid diarrhea Review of Systems Review of Systems: Yes all other systems are reviewed and are negative Constitutional Constitutional: Denies chills and Denies fever(s) Cardiovascular Cardiovascular: Denies chest pain, Denies palpitations and Denies dyspnea Respiratory Respiratory: Denies cough and Denies dyspnea Gastrointestinal Gastrointestinal: Reports abdominal pain and Reports nausea Endocrine Endocrine: Denies palpitations Physical Exam 2 Vital Signs: Vital Signs: Last Vital Signs Temp 98.1 F 03/31/24 15:38 Pulse 95 03/31/24 15:38 Resp 20 03/31/24 15:38 BP 150/88 H 03/31/24 15:38 Pulse Ox 98 03/31/24 15:38 O2 Del Method Room Air 03/31/24 15:38 BMI result Body Mass Index 23.7 Const: General: comfortable, alert and awake Nutritional Appearance: a verage body habitus Orientation/consciousness: patient oriented x3 Resp: Effort & Inspection: normal respiratory effort, able to speak in complete sentences, no respiratory distress and no use of accessory muscles A uscultation: clear to auscultation bilaterally Cardio: Rate: regular rate GI: Other: epigastric tenderness Inspection: No distended Palpation (GI): Soft to palpation Neuro: General: patient oriented x3, moves all extremities and CN's II-XI intact bilaterally Extrem: General: Yes no pedal edema Objective Data Active Medications Acetaminophen (Acetaminophen 325 Mg Tablet) 650 mg PO Q6H PRN PRN Reason: Pain, Mild 1-3,fever,headache Enoxaparin Sodium (Enoxaparin Sodium 40 Mg/0.4 Ml Syringe) 40 mg SUBCUT Q24H [facility] Last Admin: 03/31/24 08:38 Dose: 40 mg Documented By: MERCED Gabapentin (Gabapentin 300 Mg Capsule) 300 mg PO TID [facility] Dextrose/Sodium Chloride (D51/2ns) 1,000 mls @ 100 mls/hr IVCONT .Q10H [facility] Last Admin: 03/31/24 08:38 Dose: 100 mls/hr Documented By: MERCED Thiamine HCl 100 mg/ Sodium (Chloride) 101 mls @ 202 mls/hr IV DAILY [facility] Last Infusion: 03/31/24 09:31 Dose: Infused Documented By: MERCED Lorazepam (Lorazepam 1 Mg Tablet) 1 mg PO Q4H PRN PRN Reason: Alcohol Withdrawal Last Admin: 03/31/24 08:46 Dose: 1 mg Documented By: MERCED Mirtazapine (Mirtazapine 15 Mg Tablet) 15 mg PO BEDTIME [facility] Multivitamins/Vitamin C (Multivitamin Tablet) 1 tab PO DAILY [facility] Last Admin: 03/31/24 08:40 Dose: 1 tab Documented By: MERCED Ondansetron HCl (Ondansetron Hcl 4 Mg/2 Ml Vial) 4 mg IVPUSH Q8H PRN PRN Reason: Nausea and Vomiting Pantoprazole Sodium (Pantoprazole Sodium 40 Mg/10 Ml Vial) 40 mg IVPUSH BID@0630,1630 [facility] Last Admin: 03/31/24 08:38 Dose: 40 mg Documented By: MERCED Pharmacy Consult (Consult Rx Etoh Phenob Im/Po) 1 each MISCELLANE ONCE PRN; Protocol PRN Reason: Consult order Phenobarbital (Phenobarbital 15 Mg Tablet) 45 mg PO BID@1100,2300 [facility]; Protocol Stop: 04/01/24 23:01 Last Admin: 03/31/24 13:13 Dose: 45 mg Documented By: MERCED Phenobarbital (Phenobarbital 30 Mg Tablet) 30 mg PO BID [facility]; Protocol Stop: 04/03/24 21:01 Phenobarbital (Phenobarbital 30 Mg Tablet) 30 mg PO DAILY [facility]; Protocol Stop: 04/05/24 09:01 Sodium Chloride (0.9 % Sodium Chloride Flush 3 Ml Syringe) 3 ml IVFLUSH QSHIFT [facility] Last Admin: 03/31/24 14:04 Dose: Not Given Documented By: MERCED Non-Admin Reason: IV Running Labs 03/31/24 06:08 03/31/24 06:08 Labs: Laboratory Results - last 24 hr 03/30/24 03/30/24 03/31/24 17:07 19:23 06:08 MCV 92.0 92.8 MCH 32.3 31.5 MCHC 35.1 34.0 RDW 12.6 12.5 Plt Count 148 L 96 L D MPV 9.7 9.8 Immature Gran % (Auto) 0.2 0.2 Neut % (Auto) 61.3 54.8 Lymph % (Auto) 31.1 36.4 Cuming % (Auto) 5.6 6.3 Eos % (Auto) 0.9 1.6 Baso % (Auto) 0.9 0.7 Lymph # (Auto) 1.4 2.0 Cuming # (Auto) 0.3 0.4 Eos # (Auto) 0.0 0.1 Baso # (Auto) 0.0 0.0 Abs Immat Gran (auto) 0.01 0.01 Absolute Neuts (auto) 2.7 3.0 Absolute Nucleated RBC 0.000 0.000 Nucleated RBC % (auto) 0.0 0.0 Anion Gap 15 13 Estim Creat Clear Calc 152.8 152.8 Estimated GFR > 60 > 60 Random Glucose 98 79 Calcium 8.6 7.1 L D Magnesium 2.3 1.7 Total Bilirubin 0.5 0.8 Direct Bilirubin 0.2 AST 154 H 111 H ALT 86 H 66 H Alkaline Phosphatase 66 53 Total Protein 7.8 6.2 L Albumin 4.4 3.6 Lipase 143 H Salicylates < 5.0 L Urine Opiates Screen Not Detected Ur Buprenorphine Scrn Not Detected Ur Oxycodone Screen Not Detected Urine Methadone Screen Not Detected Urine Fentanyl Screen Not Detected Acetaminophen < 3 Ur Barbiturates Screen Not Detected Ur Phencyclidine Scrn Not Detected Ur Amphetamines Screen Not Detected U Benzodiazepines Scrn POSITIVE H Urine Cocaine Screen Not Detected U Marijuana (THC) Screen POSITIVE H Ethyl Alcohol 492 H* Assessment and Plan (1) Alcohol use disorder, severe, dependence: Status: Acute Plan This is a 38-year-old male with a PMH significant for?alcohol use disorder with hx of withdrawal who presents to the ED seeking detox and with N/V/D found to have conern for intussusception admitted for further management Alcohol use disorder with alcohol withdrawal continue Phenobarbatol Daily multivitamin, folic acid, thiamine Protonix follow CIWA Follow lytes, Mag possible gi bleeding pt reporting dark vomiting x1 and dark stools ?etoh gastritis continue PPI repeat H/H now GI consult possible intussusception CT of abdomen/pelvis showing 2 areas of likely transient intussusception Abdominal exam benign seen by General surgery, may have had transient intussusception no surgical intervention required advance to clear liquids, continue IVF thrombocytopenia likely due to etoh use transaminitis due to eoth use and hepatic steatosis seen on imaging Full Code DVT Prophylaxis: Lovenox stopped due to possibility of Gi bleeding; mechanical devices Pt will require a hospitalization of at least two nights for treatment and further evaluation of likely transient intussusception and impending alcohol withdrawal. Pt will require hospital level care for administration of phenobarb protocol, close monitoring of labs and cardiac function, as well as specialist consultation general surgery. Quality Stroke Does the patient have a stroke diagnosis?: No VTE Prior VTE?: No VTE Risk Level:: Medical - moderate - high VTE Device Contraindication: Treatment Not Indicated VTE Drug Contraindication: N/A - Med Ordered
[2024-03-31] MEDS: Gabapentin 300 MG CAPSULE PO ×2 (16:34→20:21)
[2024-03-31 17:20] LABS: Hematocrit 37.2 % (42.0-52.0); Hemoglobin 12.6 g/dl (14.0-18.0)
[2024-03-31] MEDS: Mirtazapine 15 MG TABLET PO (20:21)
[2024-04-01] VITALS: BP 134/76; PULSE 80; RESP 18; TEMP 36.6; O2SAT 97
[2024-04-01 04:00] VITALS: BP 139/95; PULSE 80; RESP 16; TEMP 35.9; O2SAT 97
[2024-04-01] MEDS: Dextrose 5 % and 0.45 % NaCl 1,000 ML 100 ML IVCONT (04:10)
[2024-04-01] MEDS: Pantoprazole Sodium 40 MG/10 ML VIAL IVPUSH (05:35)
[2024-04-01 06:55] LABS: Hematocrit 36.3 % (42.0-52.0); Hemoglobin 12.5 g/dl (14.0-18.0); Mean Corpuscular HGB Conc 34.4 g/dl (31.0-36.0); Mean Corpuscular Hemoglobin 32.1 pg (27.0-33.0); Mean Corpuscular Volume 93.3 fL (80.0-98.0); Mean Platelet Volume 10.2 fL (9.4-12.4); Red Blood Count 3.89 X10*6/uL (4.60-5.80); Red Cell Distribution Width 12.1 % (11.0-16.0)
[2024-04-01 07:01] LABS: Platelet Count 72 X10*3/uL (160-400)
[2024-04-01 07:03] LABS: Alanine Aminotransferase 58 U/L (0-40); Albumin Level 3.5 g/dL (3.5-5.0); Alkaline Phosphatase 52 U/L (39-117); Anion Gap 11 (12-20); Aspartate Amino Transferase 96 U/L (5-37); Bilirubin Direct 0.4 mg/dL (0.0-0.5); Blood Urea Nitrogen 5 mg/dL (9-16); Calcium 7.9 mg/dL (8.4-10.2); Carbon Dioxide 26 mmol/L (22-29); Chloride 102 mmol/L (96-108); Creatinine Clr Calc Pharmacy 172.8; Estimated Glomerular Filt Rate > 60; Glucose Random 90 mg/dL (60-115); Magnesium 1.7 mg/dL (1.6-2.6); Sodium 136 mmol/L (135-145); Total Protein 6.1 g/dL (6.5-8.0)
[2024-04-01 07:57] VITALS: BP 125/97; PULSE 108; RESP 18; TEMP 36.1; O2SAT 97
[2024-04-01] MEDS: Thiamine HCL 100 MG in 0.9 % Sodium Chloride 100 ML 202 MG IV (09:17)
[2024-04-01] MEDS: 0.9 % Sodium Chloride Flush 3 ML SYRINGE IVFLUSH (09:17)
[2024-04-01] MEDS: Gabapentin 300 MG CAPSULE PO ×3 (09:26→20:02)
[2024-04-01] MEDS: Multivitamin TABLET 1 TAB PO (09:26)
[2024-04-01] MEDS: Potassium Chloride Packet 20 MEQ PACKET 40 MEQ PO (09:26)
--- NOTE | 2024-04-01 10:26 | MHC.CM.PN ---
PT REPORTS HE RECENTLY MOVED TO THE AREA AND LIVES WITH HIS GIRLFRIEND HE IS INDEPENDENT WITH CARE, USES NO DME AND NO SERVICES PT DOES NOT HAVE A HCP OR PCP LIST AND INSTRUCTIONS ON OBTAINING A PCP PROVIDED PT UNSURE IF HE WILL DC HOME OR TO [facility] DCP TBD PENDING CARE TEAM CONSULT IF PT IS CLEARED TO DC HOME, HE MAY NEED A LYFT ARRANGED
[2024-04-01] MEDS: PHENobarbitaL 15 MG TABLET 45 MG PO (10:36)
[2024-04-01 11:47] VITALS: BP 133/94; PULSE 90; RESP 18; TEMP 37.1; O2SAT 98
--- NOTE | 2024-04-01 12:15 | CONS_ITS ---
DATE OF SERVICE: 04/01/2024 REFERRING PHYSICIAN: RICHARD Garcia REASON FOR CONSULTATION: Alcohol abuse and question of GI bleed. HISTORY OF PRESENT ILLNESS: The patient is a pleasant 38-year-old man who was admitted to the hospital after presenting to the emergency room on March 30. Because of alcohol abuse, requesting detoxification. He has a history of episodic alcohol abuse and reports drinking heavily, 12 to 14 hard liquor drinks on a daily basis over the past 4 to 6 months with associated anxiety and depression. He was evaluated in the emergency department and admitted to the hospital. He has been treated for alcohol withdrawal and did have a blood alcohol level of 492 on admission. Lipase was slightly elevated as were liver function tests and a pattern consistent with alcohol. He underwent imaging with CT scanning, which is reviewed. This is interpreted as showing transient intussusception in 2 areas of the small bowel. He was also noted to have a history of vomiting, dark material and some thickening of small bowel movement loops were noted consistent with enteritis. Since admission, he has been treated with a proton pump inhibitor. His hematocrit has been stable in the mid 30s. He has had no hematemesis or melena. PAST MEDICAL HISTORY: Alcohol abuse as above. He denies other medical or surgical illnesses. CURRENT MEDICATIONS: His current medication list is reviewed in the chart. ALLERGIES: THERE ARE NONE REPORTED. FAMILY HISTORY: This is reviewed with the patient and is noncontributory. SOCIAL HISTORY: He denies substance abuse. REVIEW OF SYSTEMS: SKIN: No pruritus. HEENT: Negative. CARDIOPULMONARY: No shortness of breath or chest pain. GASTROINTESTINAL: As above. GENITOURINARY: Negative. NEUROPSYCHIATRIC: Negative. PHYSICAL EXAMINATION: GENERAL: Shows a pleasant male, lying comfortably in bed. VITAL SIGNS: Reviewed in electronic medical record and are stable. SKIN: Anicteric. HEENT: Shows no scleral icterus. NECK: Without lymphadenopathy or thyromegaly. LUNGS: Clear. HEART: Shows a regular rate and rhythm. S1, S2. No murmur. ABDOMEN: Soft without focal masses or tenderness. Bowel sounds are present. No organomegaly is noted. EXTREMITIES: Without edema. LABORATORY DATA AND IMAGING STUDIES: Reviewed. IMPRESSION: Abdominal pain with history of alcohol abuse. It is likely that he has a component of alcoholic gastritis. I would recommend treating him with a proton pump inhibitor. He can be discharged on this as well and follow up. If he has persistent symptoms, I would recommend upper endoscopy. However, there are no signs of upper GI bleeding at this time. I did discuss with him the need to avoid alcohol because of its negative effects on his GI tract and liver. The area of intussusception described on the CAT scan appears to have been transient. He has been tolerating clear liquids as his diet, and he is currently being advanced to solids. Thanks for asking me to see him. I will follow him in the hospital with you. MD SUDHIR Nam/ABIMAEL / [id number]
--- NOTE | 2024-04-01 15:57 | P.PNIM_ITS ---
Subjective Subjective Date of Service: 04/01/24 Interval History: seen and examined this morning follow up for etoh withdrawal, possible intussusception tolerating diet, k better requested IV out, declines further lab draws Review of Systems Review of Systems: Yes all other systems are reviewed and are negative Constitutional Constitutional: Denies chills and Denies fever(s) Cardiovascular Cardiovascular: Denies chest pain, Denies palpitations and Denies dyspnea Respiratory Respiratory: Denies cough and Denies dyspnea Endocrine Endocrine: Denies palpitations Physical Exam 2 Vital Signs: Vital Signs: Last Vital Signs Temp 98.8 F 04/01/24 11:47 Pulse 90 04/01/24 11:47 Resp 18 04/01/24 11:47 BP 133/94 H 04/01/24 11:47 Pulse Ox 98 04/01/24 11:47 O2 Del Method Room Air 04/01/24 11:47 BMI result Body Mass Index 23.7 Const: General: comfortable, alert and awake Nutritional Appearance: a verage body habitus Orientation/consciousness: patient oriented x3 Resp: Effort & Inspection: normal respiratory effort, able to speak in complete sentences, no respiratory distress and no use of accessory muscles A uscultation: clear to auscultation bilaterally Cardio: Rate: regular rate GI: Inspection: No distended Palpation (GI): Soft to palpation Neuro: General: patient oriented x3, moves all extremities and CN's II-XI intact bilaterally Extrem: General: Yes no pedal edema Objective Data Active Medications Acetaminophen (Acetaminophen 325 Mg Tablet) 650 mg PO Q6H PRN PRN Reason: Pain, Mild 1-3,fever,headache Gabapentin (Gabapentin 300 Mg Capsule) 300 mg PO TID [facility] Last Admin: 04/01/24 14:55 Dose: 300 mg Documented By: ARIS Dextrose/Sodium Chloride (D51/2ns) 1,000 mls @ 100 mls/hr IVCONT .Q10H [facility] Last Admin: 04/01/24 14:54 Dose: Not Given Documented By: ARIS Non-Admin Reason: Patient Refused Thiamine HCl 100 mg/ Sodium (Chloride) 101 mls @ 202 mls/hr IV DAILY [facility] Last Infusion: 04/01/24 10:32 Dose: Infused Documented By: ARIS Lorazepam (Lorazepam 1 Mg Tablet) 1 mg PO Q4H PRN PRN Reason: Alcohol Withdrawal Last Admin: 03/31/24 20:22 Dose: 1 mg Documented By: LAURA Comments: CIWA=6 Mirtazapine (Mirtazapine 15 Mg Tablet) 15 mg PO BEDTIME [facility] Last Admin: 03/31/24 20:21 Dose: 15 mg Documented By: LAURA Multivitamins/Vitamin C (Multivitamin Tablet) 1 tab PO DAILY [facility] Last Admin: 04/01/24 09:26 Dose: 1 tab Documented By: ARIS Ondansetron HCl (Ondansetron Hcl 4 Mg/2 Ml Vial) 4 mg IVPUSH Q8H PRN PRN Reason: Nausea and Vomiting Pantoprazole Sodium (Pantoprazole Sodium 40 Mg/10 Ml Vial) 40 mg IVPUSH BID@0630,1630 [facility] Last Admin: 04/01/24 05:35 Dose: 40 mg Documented By: LAURA Pharmacy Consult (Consult Rx Etoh Phenob Im/Po) 1 each MISCELLANE ONCE PRN; Protocol PRN Reason: Consult order Phenobarbital (Phenobarbital 15 Mg Tablet) 45 mg PO BID@1100,2300 [facility]; Protocol Stop: 04/01/24 23:01 Last Admin: 04/01/24 10:36 Dose: 45 mg Documented By: ARIS Phenobarbital (Phenobarbital 30 Mg Tablet) 30 mg PO BID [facility]; Protocol Stop: 04/03/24 21:01 Phenobarbital (Phenobarbital 30 Mg Tablet) 30 mg PO DAILY [facility]; Protocol Stop: 04/05/24 09:01 Potassium Chloride (Potassium Chloride Packet 20 Meq Packet) 40 meq PO BID [facility] Stop: 04/01/24 21:01 Last Admin: 04/01/24 09:26 Dose: 40 meq Documented By: ARIS Sodium Chloride (0.9 % Sodium Chloride Flush 3 Ml Syringe) 3 ml IVFLUSH QSHIFT [facility] Last Admin: 04/01/24 14:57 Dose: Not Given Documented By: ARIS Non-Admin Reason: No Access Labs 04/01/24 05:58 04/01/24 15:30 Labs: Laboratory Results - last 24 hr 04/01/24 05:58 MCV 93.3 MCH 32.1 MCHC 34.4 RDW 12.1 Plt Count 72 L MPV 10.2 Absolute Nucleated RBC 0.000 Nucleated RBC % (auto) 0.0 Anion Gap 11 L Estim Creat Clear Calc 172.8 Estimated GFR > 60 Random Glucose 90 Calcium 7.9 L D Magnesium 1.7 Total Bilirubin 1.0 Direct Bilirubin 0.4 AST 96 H ALT 58 H Alkaline Phosphatase 52 Total Protein 6.1 L Albumin 3.5 Assessment and Plan (1) MDD (major depressive disorder), recurrent episode, moderate: Status: Acute (2) Alcohol use disorder, severe, dependence: Status: Acute (3) Intussusception of small bowel: Status: Acute Plan This is a 38-year-old male with a PMH significant for?alcohol use disorder with hx of withdrawal who presents to the ED seeking detox and with N/V/D found to have conern for intussusception admitted for further management Alcohol use disorder with alcohol withdrawal continue Phenobarbatol Daily multivitamin, folic acid, thiamine CIWA low seen by addiction medicine-patient has disulfiram from previous provider which he will resume a following discharge He is interested in PHP or IOP once medically clear- please consult care team once he is medically clear Hypokalemia Resolved with replacement possible gi bleeding pt reporting dark vomiting x1 and dark stools - now resolved ?etoh gastritis continue PPI GI consult -H/H stable, recommend p.o. PPI upon discharge. No further workup at this time possible intussusception CT of abdomen/pelvis showing 2 areas of likely transient intussusception Abdominal exam benign seen by General surgery, may have had transient intussusception no surgical intervention required Tolerated diet advancement stop IV fluid thrombocytopenia likely due to etoh use transaminitis due to eoth use and hepatic steatosis seen on imaging Trending down Full Code DVT Prophylaxis: Lovenox stopped due to possibility of Gi bleeding; mechanical devices Pt will require a hospitalization of at least two nights for treatment and further evaluation of likely transient intussusception and impending alcohol withdrawal. Pt will require hospital level care for administration of phenobarb protocol, close monitoring of labs and cardiac function, as well as specialist consultation general surgery. Quality Stroke Does the patient have a stroke diagnosis?: No VTE Prior VTE?: No VTE Risk Level:: Medical - moderate - high VTE Device Contraindication: Treatment Not Indicated VTE Drug Contraindication: N/A - Med Ordered
[2024-04-01 16:17] VITALS: BP 146/90; PULSE 92; RESP 12; TEMP 36.5; O2SAT 98
--- NOTE | 2024-04-01 17:22 | MHC.CARE ---
Patient evaluated by the CARE Team, he does not require inpatient psychiatric admission at this time, multiple outpatient referrals will be made on his behalf. Providers, RICHARD Garcia and Vanessa Tracy RN updated with plan.
[2024-04-01 19:41] VITALS: BP 133/87; PULSE 85; RESP 18; TEMP 36.8; O2SAT 99
[2024-04-01] MEDS: Mirtazapine 15 MG TABLET PO (20:02)
--- NOTE | 2024-04-01 20:49 | PM.DS ---
DS: Providers Provider Date of Service: 04/01/24 Date of admission: 03/30/24 21:31 Date of discharge: 04/01/24 Primary care physician: None Physician Consults: 03/30/24 16:50 Consult to Care Team Stat Comment: Reason for consultation: +depressed w/vague si, +etoh interested in detox. intoxicated 03/30/24 21:35 Consult to General Surgery Routine Consulting Provider: [facility] General Surgeons Reason for consultation: ? Intussusception Has provider been notified: Yes 03/30/24 21:38 Consult to Psychiatry Routine Consulting Provider: [facility] Psych Covering Reason for consultation: EtOH, intermittent SI (not currenlty), depression Has provider been notified: No 03/30/24 21:59 Addiction Medicine Routine Consulting Provider: Addiction Covering Reason for consultation: Alcohol use disorder, seeking detox 03/31/24 15:58 Consult to Gastroenterology Routine Consulting Provider: Holland Pineda Reason for consultation: etoh; gi bleed Has provider been notified: No 04/01/24 14:12 Consult to Care Team Routine Comment: Reason for consultation: medically clear; He is interested in PHP or IOP once medically clear Attending physician on discharge: Marco Antonio Cowart Discharging clinician: Caitlyn Garcia DS: Diagnosis Discharge Diagnosis (1) MDD (major depressive disorder), recurrent episode, moderate: Status: Acute (2) Alcohol use disorder, severe, dependence: Status: Acute (3) Intussusception of small bowel: Status: Acute DS: Summary Hospital Course Hospital Course: From H&P on the day of admission Pt is a 38-year-old male with a PMH significant for?alcohol use disorder with hx of withdrawal who presents to the ED seeking detox. Pt reports has been on a ?[place]? for awhile, drinking 12-14 shots of vodka daily for the past 4 months. Pt reports he is has had increasing depression and ?dark thoughts? with vague SI. Pt however denies any specific plan and reports he does not intend to follow through with any harmful thoughts. Pt was supposed to go to detox at a facility in [place], however missed his transportation there which prompted his girlfriend to call 911 to bring him to the hospital. The pt reports has had some nausea and vomiting, especially with p.o. intake. Reports he has not been able to eat much of anything except soup recently. Also complains of substernal epigastric burning sensation associated with p.o. intake. Also reports for the past few weeks has gotten intermittent lower abdominal stomach cramps that are sharp and shooting. Has also been experiencing some loose stool. Denies tremors. No auditory, visual, or tactile hallucinations. No diaphoresis. Some increase in anxiety. Denies chest pain/pressure, palpitations. No fever, chills. Denies headache. In the ED pt was tachycardic up to 99 and mildly hypertensive at 137/97. Labs were significant for lipase 143, AST 154, ALT 86. Ethyl alcohol level 492. No significant electrolyte abnormalities. Renal function WNL. CT?of abdomen and pelvis found 2 areas of transient intestine exception with question of enteritis. Pt was treated with IVF, ketorolac, ondansetron, and lorazepam. Pt will be admitted to the hospital for treatment and further evaluation of question of intussusception and impending alcohol withdrawal. Alcohol use disorder with alcohol withdrawal treated with Phenobarbatol protocol protocol, multivitamin, folic acid, thiamine CIWA reamained low. seen by addiction medicine-patient has disulfiram from previous provider which he will resume a following discharge He is interested in PHP or IOP once medically clear- was seen by the care team did not meet criteria for IPLOC and ultimately did not wait for any referrals to be made. Hypokalemia Resolved with replacement possible gi bleeding pt reporting dark vomiting x1 and dark stools - now resolved ?etoh gastritis. treated with PPI. Seen by GI, H/H has remained stable, no indication for further work up at this time. recommend p.o. PPI upon discharge possible intussusception CT of abdomen/pelvis showing 2 areas of likely transient intussusception. Abdominal exam has remained benign. seen by General surgery, may have had transient intussusception no surgical intervention required. abdominal pain resolved and diet was advanced. thrombocytopenia and transaminits due to eoth use and hepatic steatosis seen on imaging Recommend outpatient follow-up Time Attestation Discharge Coordination Time (in mins): 35 Quality: Safe Use of Opioids Does Pt have an Active Cancer Diagnosis on the Problem List?: No Quality: Stroke Does the patient have a stroke diagnosis?: No Physical Exam Vital Signs: Vital Signs: Last Vital Signs Temp 98.2 F 04/01/24 19:41 Pulse 85 04/01/24 19:41 Resp 18 04/01/24 19:41 BP 133/87 04/01/24 19:41 Pulse Ox 99 04/01/24 19:41 O2 Del Method Room Air 04/01/24 19:41 BMI result Body Mass Index 23.7 Const: General: alert, awake and Physically active Nutritional Appearance: average body habitus Orientation/consciousness: patient oriented x3 Neuro: General: patient oriented x3 DS: Data Data Completed and Pending Labs on day of discharge: Laboratory Results - last 24 hr 04/01/24 04/01/24 05:58 15:30 WBC 4.0 L RBC 3.89 L Hgb 12.5 L Hct 36.3 L MCV 93.3 MCH 32.1 MCHC 34.4 RDW 12.1 Plt Count 72 L MPV 10.2 Absolute Nucleated RBC 0.000 Nucleated RBC % (auto) 0.0 Sodium 136 Potassium 3.0 L 4.0 D Chloride 102 Carbon Dioxide 26 Anion Gap 11 L BUN 5 L Creatinine 0.61 Estim Creat Clear Calc 172.8 Estimated GFR > 60 Random Glucose 90 Calcium 7.9 L D Magnesium 1.7 Total Bilirubin 1.0 Direct Bilirubin 0.4 AST 96 H ALT 58 H Alkaline Phosphatase 52 Total Protein 6.1 L Albumin 3.5 Discharge Plan Discharge Anticipated Discharge Date/Time: 04/01/24 20:35 Patient Disposition: Home, Self-Care Discharge Diagnosis: alcohol use disorder transient intussusception hypokalemia Referrals: Physician,None [Primary Care Provider] - 1 Week Discharge Medications: New gabapentin 300 mg Capsule 300 mg PO TID 14 Days Qty: 42 0RF mirtazapine 15 mg Tablet 15 mg PO BEDTIME Qty: 14 0RF omeprazole 40 mg Capsule,Delayed Release(Dr/Ec) 40 mg PO DAILY@0630 60 Days Qty: 60 0RF thiamine mononitrate (vit B1) 100 mg Tablet 100 mg PO DAILY 90 Days Qty: 90 0RF Discharge Orders: Discharge Order (Routine); Ordered 04/01/24 Ordered By: Caitlyn Garcia Activity on Discharge: As tolerated Stand Alone Forms: Patient Portal Discharge page Print Language: Comoran Care Plan Goals: see below Health Concerns: alcohol use disorder with withdrawal hypokalemia transient intussuception.resolved gastritis due to alcohol use elevated liver enzymes thrombocytopenia Plan of Treatment: recommend abstinence from alcohol take omeprazole daily as prescribed outpatient therapy referrals will be in place after the weekend; resources provided by addiction medicine/care team start taking disulfiram as prescribed by outpatient provider as discussed with addiction medicine team recommend obtaining primary care provider for assistance in managing medical care moving forward Assessment: see discharge summary Discharge Date/Time: 04/01/24 21:55
--- NOTE | 2024-04-01 22:04 | PC.NURSE ---
Upon shift change, pt claimed his GF is able to come to give him a ride home, prev RN reported pt had a plan for discharge today but unable to get a ride, Dr. Hurst was informed, Caitlyn Garcia placed the discharge order, prescription was forwarded by Caitlyn to pt's pharmacy of choice. multicultural internship Casey did the discharge process with the pt and pertinent papers was given and signed, pt left the unit at 2150 wiht his GF ambulatory.
--- NOTE | 2024-04-03 12:45 | MHC.CARE ---
[facility]/PHP referral completed.
== END 2024-04-01 21:55 | disposition home or self-care (01) | DRG 241 ==
LOC: HO.ED 20:55 → HO.EDOVER 22:03 → HO.S3 03-31 01:23
PROVIDERS: Physician Assistant; Admitting Provider Internal Medicine; Emergency Provider Emergency Medicine Emergency Medical Services; Visit Provider Physician Assistant Medical
DX: K29.21 Alcoholic gastritis with bleeding (principal); K56.1 Intussusception; D69.59 Other secondary thrombocytopenia; K76.0 Fatty (change of) liver, not elsewhere classified; F10.229 Alcohol dependence with intoxication, unspecified; F10.239 Alcohol dependence with withdrawal, unspecified; Y90.8 Blood alcohol level of 240 mg/100 ml or more; Z91.51 Personal history of suicidal behavior; Z79.899 Other long term (current) drug therapy
CPT/HCPCS: 36415; 74177; 80048; 80053; 80076; 80143; 80179; 80307; 83690; 83735; 84132; 85014; 85018; 85025; 85027; 99285; J1650; J1885; J2405; J2470; J2560; J3411; Q9967; S9485

== ENCOUNTER → 2024-03-30 18:21 | Outpatient (BNV) | payer MEDICAID, SELFPAY | PROVIDERS: Emergency Provider Emergency Medicine Emergency Medical Services; Visit Provider Radiology Diagnostic Radiology | DX: K56.1 Intussusception (principal); K76.0 Fatty (change of) liver, not elsewhere classified | CPT/HCPCS: 74177 ==

== ENCOUNTER → 2024-03-30 21:31 | Outpatient (BNV) | payer MEDICAID, SELFPAY | PROVIDERS: Admitting Provider Internal Medicine; Emergency Provider Emergency Medicine Emergency Medical Services; Visit Provider Student in an Organized Health Care Education/Training Program | DX: F33.1 Major depressive disorder, recurrent, moderate (principal); F10.20 Alcohol dependence, uncomplicated; K56.1 Intussusception | CPT/HCPCS: 99239 ==

== ENCOUNTER → 2024-03-30 21:31 | Outpatient (BNV) | payer MEDICAID, SELFPAY | PROVIDERS: Admitting Provider Internal Medicine; Emergency Provider Emergency Medicine Emergency Medical Services; Visit Provider Social Worker | DX: F33.1 Major depressive disorder, recurrent, moderate (principal); F10.20 Alcohol dependence, uncomplicated | CPT/HCPCS: 99233 ==

== ENCOUNTER 2024-05-20 08:02 | Emergency (ER) | payer MEDICAID, SELFPAY ==
--- NOTE | ~2024-05-20 | CT_ITS ---
CLINICAL HISTORY: s p fall with head strike CT cervical spine without contrast Comparison: None Findings: Normal vertebral body alignment. Mild disc space narrowing at C4-5 and C5-6 with endplate sclerosis and marginal osteophyte formation. No acute fractures or dislocations. No acute findings on limited view of the intracranial contents. Soft tissues of the neck are normal. Lung apices are clear. IMPRESSION: No acute findings. Mild degenerative changes. This document has been electronically signed by: Jorge Luis Logan MD on 05/20/2024 09:27:08
--- NOTE | ~2024-05-20 | CT_ITS ---
CLINICAL HISTORY: chin and right eye trauma s p fall CT maxillofacial without contrast Comparison: None Findings: No acute fractures. No dislocations. Temporomandibular joints are intact. Paranasal sinuses and mastoid air cells clear. Orbits normal. Visualized intracranial contents are within normal limits. No foreign bodies. IMPRESSION: No acute facial bone fracture identified. This document has been electronically signed by: Jorge Luis Logan MD on 05/20/2024 09:34:19
--- NOTE | ~2024-05-20 | CT_ITS ---
CLINICAL HISTORY: rib pain, ecchymosis chest wall s p fall CT chest without contrast Comparison: None Findings: The heart size is normal. The visualized thyroid and mediastinum are unremarkable. No consolidation or effusion. The visualized upper abdomen is unremarkable. The bones are intact. IMPRESSION: No rib fracture or pneumothorax. This document has been electronically signed by: Jorge Luis Logan MD on 05/20/2024 09:26:01
--- NOTE | ~2024-05-20 | CT_ITS ---
CLINICAL HISTORY: s p fall with face strike CT head without contrast Comparison: None Findings: No intra-axial mass, midline shift, hydrocephalus, or acute hemorrhage. No significant atrophy-like change or white matter disease. The visualized paranasal sinuses and mastoid air cells are normal. The orbits are within normal limits. No skull fracture. IMPRESSION: 1. No acute intracranial findings. This document has been electronically signed by: Jorge Luis Logan MD on 05/20/2024 09:27:28
[2024-05-20 08:08] VITALS: BP 120/79; BP 146/79; PULSE 111; PULSE 98; RESP 18; TEMP 37.1; O2SAT 95; O2SAT 99; BMI 23.7
--- NOTE | 2024-05-20 08:23 | ED.WOUNDLAC ---
HPI - Wound/Laceration General Chief Complaint: Wound/Laceration Stated Complaint: etoh, laceration on chin Time Seen by Provider: 05/20/24 08:22 Source: patient and EMS Mode of arrival: EMS Limitations: no limitations History of Present Illness ED Provider: Bee Dickerson PA-C HPI narrative: 39 yo male with history of ETOH use disorder, depression, presents to the ER via EMS for evaluation of a fall while intoxicated, sustaining a laceration on his chin. Patient reports he fell last night when he was intoxicated. He does not remember falling. He states he hit his chin on the ground and had a significant amount of bleeding. He states it was blood all over his apartment. He states he is covered in blood. He reports also sustaining injury to the inner lower lip in two places. No loose teeth. He is unsure if he lost consciousness when he fell. He is not on anticoagulation. He denies a headache or neck pain. He reports he is still intoxicated. On evaluation patient has significant ecchymosis over the left anterior lower ribs. He states he did not know he had bruising there and is tender to touch. He denies any shortness of breath or difficulty breathing. No abdominal pain, nausea, vomiting. Onset (ago): unknown Location: face and chest Place: home Context: accidental Associated symptoms: other (Bleeding) Related Data Previous Rx's ?Medication ?Instructions ?Recorded gabapentin 300 mg capsule 300 mg PO TID 14 days #42 caps 04/01/24 mirtazapine 15 mg tablet 15 mg PO BEDTIME #14 tabs 04/01/24 omeprazole 40 mg capsule,delayed 40 mg PO DAILY@0630 60 days #60 04/01/24 release caps thiamine mononitrate (vit B1) 100 100 mg PO DAILY 90 days #90 tabs 04/01/24 mg tablet cephalexin 500 mg capsule 500 mg PO Q6H 5 days #20 caps 05/20/24 chlorhexidine gluconate 0.12 % 15 ml buccal DAILY #120 mL 05/20/24 mouthwash (Peridex) Allergies Allergy/AdvReac Type Severity Reaction Status Date / Time Penicillins [PCN] Allergy Itching Verified 05/20/24 08:16 Review of Systems Review of Systems: Yes all other systems are reviewed and are negative PMFSH Past Medical History Medical History (Updated 03/15/25 @ 09:02 by RICHARD Drummond) Alcohol use disorder Social History Social History Household Members: Significant Other Housing: House Do you presently have visiting nurse or other home services: No Alcohol intake: current Alcohol intake frequency: 3 or more drinks per day Alcohol type: hard liquor Patient Tobacco Use Status: Never used Tobacco Smoked in Last 30 Days: Yes Second Hand Smoke Exposure: No Use of substances other than those prescribed or required for medical reasons: No Substance Use Type: Marijuana Advance Directives: No Advance Directives Information Provided: No Do you have a plan to hurt others: No Plan service: No Physical Exam Vital Signs: Vital Signs: Last Vital Signs Temp 98.8 F 05/20/24 14:29 Pulse 109 H 05/20/24 14:29 Resp 18 05/20/24 14:29 BP 132/76 05/20/24 14:29 Pulse Ox 95 05/20/24 14:29 O2 Del Method Room Air 05/20/24 14:29 BMI result Body Mass Index 23.7 Appearance: Alert. Oriented X3. Dried blood on the face, hands and bilateral feet, calm and cooperative Head/face: normocephalic, atraumatic. Eyes: Periorbital ecchymosis of the right eye. Pupils equal, round and reactive to light. Extraocular movements are intact without any discomfort. ENT: Pharynx normal. No tonsillar swelling or exudate. Lower lip with a 1.5 cmx 0.5cm partial-thickness irregular laceration. No dental trauma. there is a full thickness deep gap, 2.5cm x1cm at the base of the lower right gums Neck: Normal inspection. Neck supple. No midline tenderness CVS: Normal heart rate and rhythm. Pulses normal. Respiratory: No respiratory distress. Breath sounds normal. Anterior chest wall with large area of deep blue ecchymosis the anterior lower left ribs with associated tenderness. No crepitus. Abdomen: Soft and nontender. +BS x4 Skin: Skin warm and dry. Normal skin color. Normal skin turgor. Extremities: No lower extremity edema. No joint swelling. Dried blood on the bilateral feet without any evidence of acute trauma in the extremities. Neuro/psych: Oriented X 3. No motor deficit. No sensory deficit. CN II-XII intact. Normal speech and cognition. Medications Administered Generic Name Dose Route Start Last Admin Trade Name Freq PRN Reason Stop Dose Admin Cephalexin HCl 500 mg 05/20/24 13:00 05/20/24 11:08 Cephalexin 500 Mg Capsule PO 500 mg QID FERMIN Administration Chlorhexidine Gluconate 15 ml 05/20/24 11:00 05/20/24 12:34 Chlorhexidine Gluc Oral Rinse 15 Ml Mouthwash BUCCAL 15 ml BID FERMIN Administration Lorazepam 2 mg 05/20/24 15:25 05/20/24 15:37 Lorazepam 1 Mg Tablet PO 2 mg Q6H PRN Administration alcohol withdrawal symptoms Discontinued Medications Generic Name Dose Route Start Last Admin Trade Name Freq PRN Reason Stop Dose Admin Chlordiazepoxide HCl 25 mg 05/20/24 13:33 05/20/24 13:40 Chlordiazepoxide Hcl 25 Mg Capsule PO 05/20/24 13:34 25 mg ONCE ONE Administration Lidocaine HCl 5 ml 05/20/24 08:28 05/20/24 10:11 Lidocaine Hcl 1 % Mpf 5 Ml Vial SUBCUT 05/20/24 08:29 5 ml ONCE ONE Administration Lidocaine HCl 5 ml 05/20/24 10:29 05/20/24 11:02 Lidocaine Hcl 1 % Mpf 5 Ml Vial SUBCUT 05/20/24 10:30 5 ml ONCE ONE Administration Lorazepam 2 mg 05/20/24 09:19 05/20/24 09:24 Lorazepam 1 Mg Tablet PO 05/20/24 09:20 2 mg ONCE ONE Administration Magnesium Oxide 800 mg 05/20/24 12:08 05/20/24 12:32 Magnesium Oxide 400 Mg Tablet PO 05/20/24 12:09 800 mg ONCE ONE Administration Ondansetron HCl 4 mg 05/20/24 09:54 05/20/24 10:11 Ondansetron Odt 4 Mg Tab.Rapdis TRANSLINGU 05/20/24 09:55 4 mg ONCE ONE Administration Medical Decision Making Medical Decision Making MDM Narrative: 39-year-old male who presents to the ER intoxicated for evaluation after he fell, hitting his chin and sustaining a laceration to the chin, inner lip. He also sustained a black eye on the right side and bruising on the anterior chest wall both of which he was unaware of. Slightly tachycardic on arrival. Calm and cooperative. Given his acute intoxication will get CT scan imaging of the face, head, neck, chest. He will require laceration repair of the chin and lip patient tolerated lac repair. started on PO keflex to prevent infection given extent of the laceration and repair required seeking detox. he does not feel safe going home will get labs and have CARE team/addiction med see him for detox placement When patient is standing up he reported feeling dizzy and having left-sided chest pain. This is where the ecchymosis is. His vital signs were stable with some mild tachycardia that persisted. EKG without ischemic changes. CT scan of the chest did not show any acute abnormalities. Low suspicion for cardiac etiology. He is medically stable to be transferred over to the [facility] for potential detox placement. Addiction/recovery team is seeing him. patient has been seen by recovery and accepted to detox in [place]. abx and peridex sent to pharmacy there. stable for d/c to detox. does not require inpatient level of care at this time. AAO X3 and appropriate for transfer to detox. Differential Diagnosis Differential Diagnoses: The differential diagnosis associated with the presentation includes concussion, head injury, complicated lip lac, orbital fracture, ETOH intoxication with complication Admission/Observation Consideration of admission/observation: Escalation of care including admission/observation considered Lab Data MDM Lab Attestation statement: I reviewed the patient's lab results. mild anemia, normal platelets 05/20/24 11:31 05/20/24 11:31 Labs: Lab Results 05/20/24 05/20/24 Range/Units 11:31 12:18 WBC 11.4 H (4.8-10.8) X10*3/uL RBC 3.30 L (4.60-5.80) X10*6/uL Hgb 10.3 L (14.0-18.0) g/dl Hct 30.1 L (42.0-52.0) % MCV 91.2 (80.0-98.0) fL MCH 31.2 (27.0-33.0) pg MCHC 34.2 (31.0-36.0) g/dl RDW 12.2 (11.0-16.0) % Plt Count 171 D (160-400) X10*3/uL MPV 9.3 L (9.4-12.4) fL Immature Gran % (Auto) 0.3 (0.0-0.4) % Neut % (Auto) 77.1 H (45-73) % Lymph % (Auto) 19.2 L (20-40) % [place] % (Auto) 3.1 (2-11) % Eos % (Auto) 0.0 (0-4) % Baso % (Auto) 0.3 (0-2) % Lymph # (Auto) 2.2 (1.2-4.9) X10*3/uL [place] # (Auto) 0.4 (0.1-1.2) X10*3/uL Eos # (Auto) 0.0 (0.0-0.4) X10*3/uL Baso # (Auto) 0.0 (0.0-0.2) X10*3/uL Abs Immat Gran (auto) 0.03 (0.00-0.03) X10*3/uL Absolute Neuts (auto) 8.8 H (2.0-8.3) x10*3/uL Absolute Nucleated RBC 0.000 (0.0-0.012) X10*3/uL Nucleated RBC % (auto) 0.0 (0.0-0.2) /100WBC Sodium 136 (135-145) mmol/L Potassium 4.0 (3.3-5.1) mmol/L Chloride 96 (96-108) mmol/L Carbon Dioxide 23 (22-29) mmol/L Anion Gap 21 H (12-20) BUN 13 (9-16) mg/dL Creatinine 0.71 (0.5-1.4) mg/dL Estim Creat Clear Calc 147.0 Estimated GFR > 60 Random Glucose 130 H (60-115) mg/dL Calcium 8.0 L (8.4-10.2) mg/dL Magnesium 1.3 L* (1.6-2.6) mg/dL Total Bilirubin 0.9 (0.0-1.0) mg/dL Direct Bilirubin 0.3 (0.0-0.5) mg/dL AST 51 H (5-37) U/L ALT 32 (0-40) U/L Alkaline Phosphatase 46 (39-117) U/L Total Protein 6.8 (6.5-8.0) g/dL Albumin 4.2 (3.5-5.0) g/dL Urine Color Yellow Urine Appearance Clear Urine pH 5.5 (5.0-9.0) Ur Specific [place] 1.015 (1.005-1.025) Urine Protein Trace (Neg-Trace) mg/dL Urine Glucose (UA) Negative (Negative) mg/dL Urine Ketones Negative (Negative) mg/dL Urine Blood Trace H (Negative) Urine Nitrite Negative (Negative) Ur Leukocyte Esterase Negative (Negative) Urine RBC 0-2 (0-2) /HPF Urine WBC 0-5 (0-5) /HPF Ur Squamous Epith Cells 0-2 (0-2) /HPF Urine Bacteria None Seen (None Seen) Hyaline Casts 3-5 (0-2) /LPF Urine Opiates Screen Not Detected (Not Detect) Ur Buprenorphine Scrn Not Detected (Not Detect) ng/mL Ur Oxycodone Screen Not Detected (Not Detect) ng/mL Urine Methadone Screen Not Detected (Not Detect) ng/mL Urine Fentanyl Screen Not Detected (Not Detect) Ur Barbiturates Screen Not Detected (Not Detect) Ur Phencyclidine Scrn Not Detected (Not Detect) Ur Amphetamines Screen Not Detected (Not Detect) U Benzodiazepines Scrn Not Detected (Not Detect) Urine Cocaine Screen Not Detected (Not Detect) U Marijuana (THC) Screen POSITIVE H (Not Detect) Ethyl Alcohol 305 H* mg/dL Independent Interpretation I performed an independent interpretation of an: EKG and CT Scan Interpretation: EKG with sinus tachycardia, ventricular rate 105 beats per minute, normal MT interval, normal QTC, no ST segment elevations or depressions. CT scan of the head without any acute bleed or edema. CT scan of the chest without any acute rib fractures or visualized pneumothorax Radiology Impression Discussion of test interpretation with radiology: I have reviewed the radiologist's reading. Radiologist Impression: IMPRESSION: No acute facial bone fracture identified. Independent Historian Clinical information obtained from an independent historian. History obtained from or confirmed by: EMS External Record Review External record reviewed: Outpatient record, Prior outpatient labs and Prior outpatient radiology Prescription Management I considered prescription management with: Pain Medication and Antibiotic Chronic Conditions Patient?s care impacted by: Other (Chronic alcohol use disorder) Social Determinants Patient?s care significantly limited by Social Determinants of Health including: Other Social Determinant of Health Procedures Laceration Laceration 1: Site: face Size (cm): 3 Description: linear and irregular Depth: simple, single layer Local Anesthetic: lidocaine 1% Amount of anesthesia used (mL): 3 Pre-repair: wound explored, irrigated extensively and deep structures intact Skin layer closed with: nylon Size (cm): 5-0 Number of sutures: 6 Technique: simple, interrupted Laceration 2: Site: lip Size (cm): 1.5 Description: linear and irregular Depth: simple, single layer Local Anesthetic: lidocaine 1% Amount of anesthesia used (mL): 1 Pre-repair: irrigated extensively Skin layer closed with: other (polysorb) Size (cm): 4-0 Number of sutures: 2 Technique: simple, interrupted Laceration 3: Site: lip Side (If applicable): right Size (cm): 2.5 Description: irregular Depth: involves muscle layer Local Anesthetic: lidocaine 1% Amount of anesthesia used (mL): 2 Pre-repair: wound explored and irrigated extensively Skin layer closed with: other (polysorb) Size (cm): 3-0 Number of sutures: 4 Technique: simple, interrupted Critical Care Time Critical Care Time Critical Care Time: No Discharge Plan Discharge Clinical Impression: Alcohol intoxication Qualifiers: Complication of substance-induced condition: with unspecified complication Qualified Code(s): F10.929 - Alcohol use, unspecified with intoxication, unspecified Chin laceration Qualifiers: Encounter type: initial encounter Qualified Code(s): S01.81XA - Laceration without foreign body of other part of head, initial encounter Laceration of lip Qualifiers: Encounter type: initial encounter Qualified Code(s): S01.511A - Laceration without foreign body of lip, initial encounter Patient Disposition: Xfer Other Instructions: Laceration (DC), Alcohol Use Disorder (ED) Additional Instructions: 6 stitches were used to close your chin wound today You will need your stitches out in 7-10 days. See you doctor for this or come back to the ER and we will remove them. Do not get wet for 24 hours, after that you can briefly wash with soap and water then pat dry. Keep wound clean and covered. A total of 6 absorbable stitches were used in your mouth. these will dissolve on their own Eat soft foods for the next week. Rinse your mouth with warm water after every time your eat so no food gets stuck in the wounds Use the antiseptic mouth wash and take the prescribed antibiotics as directed, complete the entire course and do not miss any doses You are being discharged to detox program. Do not drink alcohol. If you develop new or worsening symptoms call 911 or come back to the ER for further evaluation. Prescriptions: New cephalexin 500 mg capsule 500 mg PO Q6H 5 Days Qty: 20 0RF chlorhexidine gluconate [Peridex] 0.12 % mouthwash 15 ml buccal DAILY Qty: 120 0RF No Action gabapentin 300 mg Capsule 300 mg PO TID 14 Days Qty: 42 0RF mirtazapine 15 mg Tablet 15 mg PO BEDTIME Qty: 14 0RF omeprazole 40 mg Capsule,Delayed Release(Dr/Ec) 40 mg PO DAILY@0630 60 Days Qty: 60 0RF thiamine mononitrate (vit B1) 100 mg Tablet 100 mg PO DAILY 90 Days Qty: 90 0RF Print Language: Mosotho
--- OUTSIDE RECORDS SUMMARY | 2024-05-20 08:37 | XMS_ITS | Encounter Summary ---
Author Organization [facility] Address [address] [place] [address] Care Team Providers Care Head Stock Transfer Clerk Name Role Phone Edna Parrish MD Primary Care Provider [phone] Lissy Rosales DOCK LOADER Unavailable [phone] Anselmo Ferro MD Unavailable [phone] Jas Fontenot INSTRUMENT DESIGNER Unavailable [phone] Azam Cavanaugh LADC Unavailable +1-000-000- [phone] Massimo Morales Unavailable Erum Cash INSTRUMENT DESIGNER Unavailable +[phone] Suzanna See DOCK LOADER Unavailable [phone] Gracie Ramírez MD Unavailable + [phone] Ori Argueta MENTAL HEALTH TECHNICIAN Unavailable +[phone] Cole Burris INSTRUMENT DESIGNER Unavailable +[phone] Ese Granados INSTRUMENT DESIGNER Unavailable +[phone] Clemente Isabel DATA WAREHOUSE ARCHITECT Unavailable [phone] Joanne Corral MENTAL HEALTH TECHNICIAN Unavailable + [phone] Nancy Ly HEAD STOCK TRANSFER CLERK Unavailable +[phone] Flakita Marshall LADC Unavailable +[phone] 0-000-0000 Sarahi Haskins INSTRUMENT DESIGNER Unavailable [phone] Bryce Trinidad Unavailable +[phone] Kamryn Harris DOCK LOADER Unavailable [phone] Jose FranciscoJenna tierney DOCK LOADER Unavailable [phone] Jason Chahal DOCK LOADER Unavailable [phone] Daniel Abbott DOCK LOADER Unavailable +1-000-000 -0000 Edna Parrish MD Unavailable +[phone] Benito Love Unavailable Conrad Pearce DOCK LOADER Unavailable +[phone] SebastiánClemente howard INSTRUMENT DESIGNER Unavailable [phone] Norbert Savage DOCK LOADER Unavailable [phone] Jenna Gallo DOCK LOADER Unavailable Jumana Nguyen Unavailable [phone] Pillo Johnny M DATA WAREHOUSE ARCHITECT Unavailable [phone] Mycharsita, Generic Provider Unavailable [phone] [address]li [address] [facility] Unavailable [phone] Jayashree Garnica DOCK LOADER Unavailable [phone] Mary Lieberman MASTIC MAN Unavailable [phone] Nilo Butcher HEAD STOCK TRANSFER CLERK Unavailable [phone] James Lira MD Unavailable Shaylee Bond PA-C Unavailable [phone] Encounter Details Date Type Department Care Team (Late st Contact Info) Description 12/02/2017 Scanned Document [address] [place] [address] Edna Parrish MD [address] [place] [address] Social History Tobacco Use Types Packs/Day Years Used Date Smoking Tobacco: Every Day Cigarettes 0.5 12 Smokeless Tobacco: Former Alcohol Use Standard Drinks/Week Comments Yes 0 (1 standard drink = 0.6 oz pure alcohol) not currently. Last used 4 months ago June 2017 Sex and Gender Information Value Date Recorded Sex Assigned at Male 01/05/2023 8:32 AM EDT Gender Identity Male 01/05/2023 8:32 AM EDT Sexual Orientation Choose not to disclose 2022 8:32 AM EDT documented as of this encounter Plan of Treatment Not on file documented as of this encounter Visit Diagnoses Not on filedocumented in this encounter Care Teams Head Stock Transfer Clerk Relationship Specialty Start Date End Date Edna Parrish MD [address] [place] [address] PCP - General Internal Medicine 10/27/17 05/07/24 Edna Parrish MD [address] [place] [address] PCP - PCMH+ Attributed 03/08/19 Lissy Rosales LCSW [address] [place] [address] Clinician Clinical Social Work 12/13/17 06/04/21 Anselmo Ferro MD [address] [place] [address] Psychiatry, General 06/27/19 Jas Fontenot LPC [address] [place] [address] Die Inspector Clinical Social Work 06/27/19 Azam Cavanaugh LADC [address] [place] [address] Die Inspector Clinical Social Work 06/28/19 Massimo Morales [address] [place] [phone] Clinician Social Work 07/03/19 Erum Cash LPC [address] [place] [address] Die Inspector Clinical Social Work 07/14/19 Suzanna See, DOCK LOADER [address] [place] [address] Clinician Social Work 10/20/19 Gracie Ramírez [place] [address] [place] [address], [place] [address] Psychiatry, General 10/25/19 Ori Argueta, MENTAL HEALTH TECHNICIAN [address] [facility] [place] [address] Clinician Social Work 10/25/19 08/31/21 Cole Burris LPC [address] [place] [address] Die Inspector Clinical Social Work 10/26/19 Ese Granados LPC [address] [place] [address] Die Inspector Clinical Social Work 10/26/19 [facility] [address] [facility] [place] [address] Stars Coordinator 10/27/19 Joanne Corral, MENTAL HEALTH TECHNICIAN [address] [place] [address] Clinician Social Work 10/30/19 Nancy Ly APRN [address] [facility] [place] [address] Nurse Practitioner Psychiatry, General 10/31/19 Flakita Marshall [facility] [address] [facility] [place] [address] Die Inspector Clinical Social Work 11/09/19 08/31/21 Sarahi Haskins, [facility] [address] [place] [address] Die Inspector Clinical Social Work 11/10/19 08/31/21 Bryce Trinidad [address] [place] [address] Clinician 11/16/19 Kamryn Harris, [facility] [address] [place] [address] Clinician Social Work 11/17/19 10/26/21 Jenna Shore, [facility] [address] [place] [address] Clinician Social Work 11/22/19 Jason Chahal, [facility] [address] [place] [address] Die Inspector Clinical Social Work 11/23/19 Daniel Abbott, [facility] [address] [place] [address] Die Inspector Clinical Social Work 12/25/19 10/26/21 Love Oliver [address] [facility] [address] [place] [address] ICP Health Actuary 01/26/2007/21 Conrad Pearce, [facility] [address] [facility] [address] [place] [address] ICP Community Chief Of Vital Statistics 04/18/20 Clemente Lowery, [facility] [address] [place] [address] Die Inspector Clinical Social Work 05/14/21 Norbert Savage, DOCK LOADER [address] [place] [address] Primary Clinician Clinical Social Work 05/15/2110/07 Jenna Gallo, [facility] [address] [place] [address] Clinician Social Work 08/13/21 10/27/21 Jumana Nguyen [address] [place] [address] Clinician Social Work 08/27/21 Johnny Frero [address] [address] Primary Clinician Social Work 09/15/21 10/27/21 Kole Bullock MD [address] [place], [place] [id number] Referring Provider Security Services Manager 04/16/22 Carli Guerra [facility] [address] [place] [phone] Die Inspector Clinical Social Work 06/10/23 Jayashree Garnica DOCK LOADER [address] [place] [address] Die Inspector Social Work 06/11/23 Mary Lieberman LMFT [address] [place] [address] Clinician Social Work 06/14/23 Nilo Butcher, HEAD STOCK TRANSFER CLERK [address] [place] [address] Nurse Practitioner Psychiatry, General 06/14/23 James Lira MD [address] [place] [phone] Psychiatry, General 06/15/23 Shaylee Bond PA-C [address] [place] [phone] Physician Customer Contact Representative Psychiatry, General 09/03/23 documented as of this encounter
--- OUTSIDE RECORDS SUMMARY | 2024-05-20 08:37 | XMS_ITS | Clinical Summary ---
Author Organization [facility] Address [address] [place] [address] Care Team Providers Care Demand Generation Manager Name Role Phone Edna Parrish MD Primary Care Provider + Allergies Active Allergy Reactions Criticality Noted Date Comments Penicillins 07/24/2022 Sertraline 07/24/2022 Medications ondansetron ODT (ZOFRAN-ODT) 4 mg disintegrating tabletIndications:N ausea in alcohol withdrawal Take 1 tablet (4 mg total) by mouth daily as needed for nausea or vomiting for up to 14 doses Indications: Nausea in alcohol withdrawal. 14 tablet 3 Active Active Problems Problem Noted Date Diagnosed Date Behavior safety risk 07/27/2022 Assessment & Plan (07/28/2022 8:34 AM EDT): - Current level of observation: Every 15 minute checks, rationale for this level of observation is the patient is assessed to be low risk overall - Restraints needed: No - Justification for current level of observation: No acute concern for self harm - Assessment for risk of harm to self or others by nursing to be completed every shift - Goal: Reduction in level of observation within 24 hours to least restrictive means Plan: Discharge from inpatient unit Substance induced mood disorder 07/25/2022 Assessment & Plan (07/28/2022 11:40 AM EDT): Contreras Fausto Khan is a 37 y.o. man with history of polysubstance use (alcohol, cannabis, nicotine, psychedelics), substance-induced mood disorder, and anxiety presenting to the ED intoxicated requesting detox for the second time in 24 hours. Presentation noticeable for anhedonia, depressed mood, low energy levels, difficulty in concentrating, changes in appetite prior to admission. Had passive suicidal ideation in the context of recurring stressors relating to alcohol abuse. Overall, patient presentation appears most consistent with worsening substance induced mood disorder with significant psychosocial stressors including losing health insurance which has limited his access to care. At the time of previous assessment, patient was offered a voluntary admission, which he declined, but is now amicable to admission on voluntary basis. Patient was admitted to inpatient psychiatric unit and will be further optimized and evaluated for substance-induced mood disorder. Hospital course: Patient received the first dose of Lorazepam 0.5 mg at 6:30 am 07/26. Alcohol detox for the rest of today as 1 mg in early afternoon and 1 mg in the evening. He is on scheduled lorazepam taper on the rest of his stay by decreasing 20-25 % daily for next 3-4 days. Received 4 mg total of lorazepam in 07/26. He remains on CIWA for monitoring symptoms. The team will adjust the Lorazepam taper accordingly base on CIWA. Gabapentin added to 300 mg TID, may be up to 600 mg TID as pt requested the dose he was on. Will continue receiving CIWA with taper as described above. Mental status examination is noticeable for linear, coherent, goal directed with sad affect. Patient denied having acute symptoms of withdrawal such as headache, nausea or vomiting. CIWA score was 0 on 07/26. Patient will receive 2 mg total of ativan on 07/27 and taper to 1mg on 07/28 prior to discharge. Patient on 07/28, continued with CIWA scores of 0. Patient received total of 2 mg of ativan on 07/27. Will receive 0.5mg prior to discharge. Recommendations: - Patient will be discharged today on 07/28 - Recommend supplementation with B12, folate, thiamine in outpatient setting - Gabapentin 600 mg TID daily. -Trazodone 50 mg PRN added for insomnia. - Will continue antabuse at home as he has home prescription for it, (given one time prior to DC) Social History Tobacco Use Types Packs/Day Years Used Date Smoking Tobacco: Never Assessed Tobacco Cessation:Counseling Given: Not Answered Hunger Vital Sign Answer Date Recorded Within the past 12 months, y ou worried that your food would run out before you got the money to buy more. Patient declined Within the past 12 months, t he food you bought just didn't last and you didn't have money to get more. Patient declined Sex and Gender Information Value Date Recorded Sex Assigned at Not on file Legal Sex Male 1:56 PM EDT Gender Identity Not on file Sexual Orientation Not on file Last Filed Vital Signs Vital Sign Reading Time Taken Comments Blood Pressure 133/90 07/28/2022 10:00 AM EDT Pulse 82 07/28/2022 10:00 AM EDT Temperature 36.7 ??C (98 ??F) 07/28/2022 10:00 AM EDT Respiratory Rate 18 07/28/2022 10:00 AM EDT Oxygen Saturation 97% 07/28/2022 10:00 AM EDT Inhaled Oxygen Concentration - - Weight 68 kg (149 lb 14.6 oz) 07/27/2022 6:00 AM EDT Height 172.7 cm (5' 7.99 ) 07/27/2022 6:00 AM ED T Body Mass Index 22.8 07/27/2022 6:00 AM EDT Plan of Treatment Health Maintenance Due Date Last Done Comments HIV Screening 1987 Pneumococcal Vaccine: Pediatrics (0 to 5 Years) and At-Risk Patients (6 to 64 Years) (1 of 2 - PCV) 1993 Hepatitis C Screening 2005 Hepatitis B Vaccines (1 of 3 - 19+ 3-dose series) 2006 COVID-19 Vaccine (3 2023-2 5 season) 2023 03/31/2021, 06/13/2020 Influenza Vaccine (#1) 2023 DTaP,Tdap,and Td Vaccines (2 - Td or Tdap) 01/24/2026 01/25/2016 Zoster Vaccines (1 of 2) 2037 HPV Vaccines Aged Out No longer eligi ble based on patient's age to complete this topic Hepatitis A Vaccines Aged Out No long er eligible based on patient's age to complete this topic MMR Vaccines Aged Out No longer eligi ble based on patient's age to complete this topic Meningococcal Vaccine Aged Out No isa brie eligible based on patient's age to complete this topic Advance Directives For more information, please contact: [phone] * Full Code (Latest Code Status on File) Date Activated Date Inactivated Comments 07/25/2022 10:32 PM 07/28/2022 1:05 PM Care Teams Demand Generation Manager Relationship Specialty Start Date End Date Edna Parrish MD [address] [facility] [address] [place] [address] PCP - General Internal Medicine 07/24/22
--- OUTSIDE RECORDS SUMMARY | 2024-05-20 08:37 | XMS_ITS | Continuity of Care Document ---
Author Organization [facility] Address [address] [place] [address]- Care Team Providers Care Medical Coding Instructor Name Role Phone Cori Mary MD Primary Care Physician [place] [facility] [place] 04/04/24 - 05/04/[address] [address] Encounter Type: Triage Medications gabapentin 600 mg oral tablet 1 tablet = 600 mg, By Mouth, 3 times a day, take 1 pill three times a day, do not use with alcohol., # 90 tablet, 5 Refills, Maintenance, 04/17/24 2:32:00 PM EST, Tablet, [id number], Partial fill upon patient request if the prescription is for a schedule II opioid drug., 180, cm, 04/17/24 13:15:00 EST, Height Start Date: 04/17/24 Status: Ordered Quantity: 90.0 Unit: tablet Repeat number: 6 Indication: Alcohol dependence, uncomplicated mirtazapine 30 mg oral tablet 1 tablet = 30 mg, By Mouth, Daily at bedtime, take 1 at nightime daily., # 30 tablet, 0 Refills, Maintenance, 04/17/24 2:33:00 PM EST, Tablet, [facility] #[id number], Partial fill upon patient request if the prescription is for a schedule II opioid drug., 180, cm, 04/17/24 13:15:00 EST, Height Start Date: 04/17/24 Status: Ordered Quantity: 30.0 Unit: tablet Repeat number: 1 Patient Care team information Care Team Personnel Name: Cori Mary MD Position: [facility] Resident Member Role: PCP Address: [address] [place] [address] [place] [address]- [place] Telecom: Care Team Related Persons Name: DARRYN SAWYER Insurance Providers Guarantor name: DANGELO Health Plan Information #: 1 Payer: ROSTR BARLOW Member Number: NA Policy Number: NA Group Number: [id number]
--- OUTSIDE RECORDS SUMMARY | 2024-05-20 08:37 | XMS_ITS | Encounter Summary ---
Author Organization [facility] Address [address] [place] [address] Care Team Providers Care Siding Installer Name Role Phone Edna Parrish MD Primary Care Provider [phone] Anselmo Ferro MD Unavailable + [phone] Jas Fontenot BLENDER OPERATOR Unavailable [phone] Azam Cavanaugh [facility] Unavailable [phone] Massimo Morales Unavailable Erum Cash BLENDER OPERATOR Unavailable [phone] Suzanna See NEEDLE LOOM TENDER Unavailable [phone] Gracie Ramírez MD Unavailable [phone] Cole Burris BLENDER OPERATOR Unavailable +[phone] Ese Granados BLENDER OPERATOR Unavailable +[phone] Clemente Isabel JIG AND FIXTURE BUILDER Unavailable [phone] Joanne Corral HEALTH CARE TECHNICIAN Unavailable [phone] Nancy Ly INPATIENT NURSING AIDE Unavailable +[phone] Bryce Trinidad Unavailable +[phone] Jenna Shore NEEDLE LOOM TENDER Unavailable [phone] Jason Chahal NEEDLE LOOM TENDER Unavailable +[phone] Love Oliver Unavailable Conrad Pearce NEEDLE LOOM TENDER Unavailable [phone] Clemente Lowery BLENDER OPERATOR Unavailable Jumana Nguyen Unavailable [phone] Kole Bullock Provider Unavailable + [phone] GoldyCarli sales [facility] Unavailable [phone] Jayashree Garnica NEEDLE LOOM TENDER Unavailable [phone] Jamal PhippsMary MACHINE OPERATOR FARMWORKER Unavailable [phone] Nilo Butcher INPATIENT NURSING AIDE Unavailable + [phone] James Lira MD Unavailable + Shaylee Bond PA-C Unavailable [phone] Encounter Details Date Type Department Care Team (Late st Contact Info) Description 04/14/2022 Scanned Document [facility] [address] [id number] Primary Care, Scan Social History Tobacco Use Types Packs/Day Years Used Date Smoking Tobacco: Former Cigarettes 0.3 18 0 09/27/2003 - 09/26/2021 Smokeless Tobacco: Former Comments:He smoked a pack 2 weeks ago but none since then Alcohol Use Standard Drinks/Week Comments Yes 0 (1 standard drink = 0.6 oz pure alcohol) vodka and beer in excess (24 drinks a week) PHQ-2 Answer Date Recorded PHQ-2 Total Score 4 04/14/2022 Sex and Gender Information Value Date Recorded Sex Assigned at Male 01/05/2023 8:32 AM EDT Gender Identity Male 01/05/2023 8:32 AM EDT Sexual Orientation Choose not to disclose 2022 8:32 AM EDT COVID-19 Exposure Response Date Recorded In the last 10 days, have yo u been in contact with someone who was confirmed or suspected to have Coronavirus/COVID-19? No / Unsure 04/14/2022 9:39 AM EST documented as of this encounter Plan of Treatment Not on file documented as of this encounter Goals Goal Patient Goal Type Associated Problems Recent Progress Patient-Stated? Author I don't want to touch a drink. Try to maintain that. Care Plan Alcohol Use Disorder No Cole Burris, BLENDER OPERATOR Note: Clinician will provide clinical services. Contreras will attend IOP 5 days per week, 3 hours per day, stepping down when clinically appropriate by the clinical team. Contreras will attend psychiatric evaluation and medication management as needed. Contreras will submit to Urine/Drug Screen and/or breathalyzers weekly or as clinically warranted to monitor progress in treatment. Contreras will abstain from alcohol Care Plan Alcohol Use Disorder No Cole Burris LPC Note: Clinician will provide clinical services. Contreras will attend IOP 5 days per week, 3 hours per day, stepping down when clinically appropriate by the clinical team. Contreras will attend psychiatric evaluation and medication management as needed. Contreras will submit to Urine/Drug Screen and/or breathalyzers weekly or as clinically warranted to monitor progress in treatment. Contreras will increase his sober support network. Care Plan Alcohol Use Disorder No Cole Burris LPC Note: Clinician will provide clinical services. Contreras will attend IOP 5 days per week, 3 hours per day, stepping down when clinically appropriate by the clinical team. Contreras will attend psychiatric evaluation and medication management as needed. Contreras will submit to Urine/Drug Screen and/or breathalyzers weekly or as clinically warranted to monitor progress in treatment. Develop the ability to recognize, accept, and cope with feelings of depression Care Plan Depression No Jason Chahal, NEEDLE LOOM TENDER I am here for basic needs Care Plan Depression No Jason Chahal, NEEDLE LOOM TENDER Contreras will increase insight into his mental health. Care Plan Depression No Jason Chahal, LUIS Acquire the necessary skills to maintain long-term sobriety from all mood-altering substances and live a life free of chemicals Care Plan Alcohol/Drug No Jason Chahal, LUIS Note: Contreras reports being sober since starting the program. He reports some triggers and urges but reports, they pass quickly. I tell myself I do not want lose all that currently have and have to start over again . I am here for basic needs Care Plan Alcohol/Drug No Jason Chahal, NEEDLE LOOM TENDER Contreras will improve his sober support system. Care Plan Alcohol/Drug No Jason Chahal, LUIS Note: Contreras has attended over six meetings since starting to attend program. Gain self-insight and awareness through use of MARS tool. Care Plan MARS-12 No Jason Chahal, NEEDLE LOOM TENDER Contreras completed an updated MARS and scored a (4) on statement (2), ? I believe I make good choices in my life.? Care Plan MARS-12 No Jason Chahal, NEEDLE LOOM TENDER Note: This score reflects a one point increase. To measure progress in treatment and become aware of strategies to encourage positive outcomes. Care Plan MARS-12 No Jason Chahal, NEEDLE LOOM TENDER Decrease thoughts that trigger anxiety, and increase positive, self-enhancing self-talk. Care Plan Generalize Anxiety Disorder No Johnny Ferro LMSW Acquire the necessary skills to maintain long-term sobriety from all mood-altering substances. Care Plan ADD-Substance Use Disorders Johnny Zarate LMSW documented as of this encounter Visit Diagnoses Not on filedocumented in this encounter Additional Health Concerns Active Problems Noted Date Diagnosed Date Alcohol Use Disorder 11/09/2019 Note: Clinician will provide clinical services. Contreras will attend [facility] 5 days per week, 3 hours per day, stepping down when clinically appropriate by the clinical team. Contreras will attend psychiatric evaluation and medication management as needed. Contreras will submit to Urine/Drug Screen and/or breathalyzers weekly or as clinically warranted to monitor progress in treatment. MARS-2 I believe I make good chioces in my life . 11/09/2019 Note: Contreras will develop an understanding of the MARS tool as a way to measure progress while in treatment. Contreras completed an initial MARS and scored ( 4) on question ( 2), ? I believe I make good choices in my life. Consumer Goal for Treatment I don't want to touch a drink. Try to maintain that. Strengths Willingness to participate with the MARS tool and monitor progress. Clinical Interpretation of Statement Contreras has struggled with alcohol use which has had a negative impact on his life. Client has a willingness to utilize the MARS tool with goal to increase at least one point by next MARS update. Short Term Goal Contreras will understand the MARS tool and reason for its use. Contreras will identify at least two behaviors to encourage positive change. Contreras will identify at least one barrier affecting change, listen to suggestions, and develop strategies to work through barrier(s). Contreras will complete the MARS periodically during tx plan updates to determine progress. Intervention Staff to explain the MARS tool and ensure understanding of its use. Staff to distribute an initial MARS and record score in tx plan. Staff to distribute MARS during tx plan updates, record score, and discuss results. Staff to provide suggestions, support, and guidance to encourage progress. Clinician will provide clinical services. Contreras will attend [facility] 5 days per week, 3 hours per day, stepping down when clinically appropriate by the clinical team. Contreras will attend psychiatric evaluation and medication management as needed. Contreras will submit to Urine/Drug Screen and/or breathalyzers weekly or as clinically warranted to monitor progress in treatment. Depression 08/14/2021 Note: Contreras is returning treatment after a current relapse. He has a history of depression and substance use. He has a history of hospitalizations, withdrawal management and inpatient substance abuse treatment. Alcohol/Drug 08/14/2021 MARS-12 08/14/2021 Note: Developing an understanding of and utilizing the MARS while in treatment. Generalize Anxiety Disorder 10/08/2021 ADD-Substance Use Disorders 10/08/2021 documented as of this encounter Care Teams Siding Installer Relationship Specialty Start Date End Date Edan Parrish MD [address] [place] [address] PCP - General Internal Medicine 10/27/17 05/07/24 Anselmo Ferro MD [address] [place] [address] Psychiatry, General 06/27/19 Jas Fontenot LPC [address] [place] [address] Medical Billing Associate Clinical Social Work 06/27/19 Azam Cavanaugh LADC [address] [place] [address] Medical Billing Associate Clinical Social Work 06/28/19 Massimo Morales [address] [facility] [address] Clinician Social Work 07/03/19 Erum Cash LPC [address] [place] [address] Medical Billing Associate Clinical Social Work 07/14/19 Suzanna See [facility] [address] [place] [address] Clinician Social Work 10/20/19 Gracie Ramírez MD [address] [place] [address] Psychiatry, General 10/25/19 Cole Burris BLENDER OPERATOR [address] [place] [address] Medical Billing Associate Clinical Social Work 10/26/19 Ese Granados LPC [address] [place] [address] Medical Billing Associate Clinical Social Work 10/26/19 Clemnete IsabelMETHODIST [facility] [address] [place] [address] Stoker Mechanic 10/27/19 Joanne Corral, [facility] [address] [facility] [place] [address] Clinician Social Work 10/30/19 Nanyc Ly APRN [address] [facility] [place] [address] Nurse Practitioner Psychiatry, General 10/31/19 Bryce Trinidad [address] [place] [address] Clinician 11/16/19 Jenna Shore NEEDLE LOOM TENDER [address] [place] [address] Clinician Social Work 11/22/19 Jason Chahal, [facility] [address] [place] [address] Medical Billing Associate Clinical Social Work 11/23/19 Love Oliver [address] [facility] [address] [place] [address] ICP Funeral Professional 01/26/2007/21 Conrad Pearce LCSW [address] [facility] [address] [place] [address] ICP Community Manager Small Business 04/18/20 Clemente Lowery BLENDER OPERATOR [address] [place] [phone] Medical Billing Associate Clinical Social Work 05/14/21 Jumana Nguyen [address] [place] [address] Clinician Social Work 08/27/21 Kole Bullock MD [address] [place] [address] Referring Provider Louver Door Assembler 04/16/22 Carli Guerra LADC [address] [place] [address] Medical Billing Associate Clinical Social Work 06/10/23 Jayashree Garnica LCSW [address] [place] [address] Medical Billing Associate Social Work 06/11/23 Mary Lieberman LMFT [address] [place] [address] Clinician Social Work 06/14/23 Nilo Butcher APRN [address] [place] [address] Nurse Practitioner Psychiatry, General 06/14/23 James Lira MD [address] [place] [address] Psychiatry, General 06/15/23 Shaylee Bond PA-C [address] [place] [address] Physician Him Manager Psychiatry, General 09/03/23 documented as of this encounter
--- OUTSIDE RECORDS SUMMARY | 2024-05-20 08:37 | XMS_ITS | Clinical Summary ---
Author Organization [email or web address] Address [address] [place] [address] Care Team Providers Care Car Changer Name Role Phone Doreen Goldman Primary Care Provider [phone] Allergies Active Allergy Reactions Criticality Noted Date Comments Fish Containing Products Nausea 06/23/2019 Penicillins Unknown,Hives High 06/27/2016 Sertraline Hcl Nausea And Vomiting High 06/27/2016 ?dystonia Medications * This document contains information received from the source organization and may not represent a complete record from that organization. disulfiram (ANTABUSE) 250 mg tabletIndicatio ns:alcohol use disorder Take 1 tablet (250 mg total) by mouth 1 (one) time each day. 30 tablet Active Additional Information Patient not taking.Reported on 07/08/2021 gabapentin (NEURONTIN) 600 mg tablet Take 600 mg by mouth 3 (three) times a day. Active traZODone (Desyrel) 50 mg tablet Take 50 mg by mouth at night if needed. 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 Alcohol withdrawal, uncomplicated 06/21/2019 Alcohol use disorder, severe, dependence 020 Severe episode of recurrent major depressive disorder, without psychotic features 06/21/2019 RICK (generalized anxiety disorder) 06/21/2019 Alcoholism ([facility]) 06/06/2019 Cigarette nicotine dependence without complicati on 06/06/2019 Attention deficit disorder (ADD) without hyperac tivity 10/29/2017 Substance abuse ([facility]) 10/29/2017 Anxiety 09/06/2016 Cannabis abuse 03/11/2015 Depressive disorder 03/14/2014 Resolved Problems Problem Noted Date Diagnosed Date Resolved Date 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 4 or more times a week 03/19/2020 Q2: How many drinks containi ng alcohol do you have on a typical day when you are drinking? 10 or more Q3: How often do you have si x or more drinks on one occasion? Daily or almost daily 03/19/2020 Sex and Gender Information Value Date Recorded Sex Assigned at Not on file Legal Sex Male 12:45 AM EDT Gender Identity Not on file Sexual Orientation Not on file Last Filed Vital Signs Vital Sign Reading Time Taken Comments Blood Pressure 138/74 07/08/2021 2:23 PM EDT Pulse 100 07/07/2021 10:38 PM EDT Temperature 37.2 ??C (98.9 ??F) 07/08/2021 10:35 AM E DT Respiratory Rate 16 07/08/2021 12:19 PM EDT Oxygen Saturation 98% 07/08/2021 2:23 PM EDT Inhaled Oxygen Concentration - - Weight 66 kg (145 lb 8.1 oz) 07/07/2021 10:38 PM EDT Height 177.8 cm (5' 10 ) 07/07/2021 10:38 PM EDT Body Mass Index 20.88 07/07/2021 10:38 PM EDT Plan of Treatment Health Maintenance Due Date Last Done Comments Pneumococcal Vaccine: Peds ( 0 to 5 Yrs) and At-Risk Pts (6 to 49 Yrs) (1 of 2 - PCV) 2006 Annual Physical Exam 07/26/2021 07/26/2020, 02/17/2019, 11/16/2017 COVID-19 Vaccine (2023-2 5 season) 2023 03/31/2021, 06/13/2020 Influenza Vaccine (#1) 2023 Lipid Panel 10/13/2024 10/14/2019 Tdap and Td Vaccines Adult 01/24/2026 01/25/2016 Hepatitis C Screening Completed 06/22/2019 HIB Vaccines Aged Out No longer eligi ble based on patient's age to complete this topic HPV Vaccines Aged Out No longer eligi ble based on patient's age to complete this topic Hepatitis A Vaccines Aged Out No long er eligible based on patient's age to complete this topic IPV Vaccines Aged Out No longer eligi ble based on patient's age to complete this topic Meningococcal Vaccine Aged Out No isa brie eligible based on patient's age to complete this topic RSV <20 Months Aged Out No longer dannielle gible based on patient's age to complete this topic Goals Goal Patient Goal Type Associated Problems Recent Progress Patient-Stated? Author Moderate symptoms of depression and return to previous level of functioning Care Plan Depression Freda Staley LMFT Decrease dysfunctional thinking and increase positive, self enhancing statements Care Plan Depression Freda Staley LMFT Report feeling more positive about self and abilities by 50% Care Plan Depression Freda Staley LMFT Note: Acquire the necessary skills to maintain long-term sobriety Care Plan Substance Use Freda Staley LMFT Use groups to gain insight into relapse triggers as evidenced by openly talking about substance pattern in groups Care Plan Substance Use Freda Staley LMFT Reach goal of days/months/years of clean/sober living Care Plan Substance Use Freda Staley LMFT Accept the need for continued treatment and comply with medications Care Plan Aftercare Freda Staley LMFT Patient and treatment team will discuss community supports available to patient, patient will discuss in groups his/her involvement with community supports Care Plan Aftercare Freda Staley LMFT Client will identify and utilize available recovery supports in the community Care Plan Aftercare Freda Staley LMFT Procedures Procedure Name Priority Date/Time Associated Diagnosis Comments HEPATITIS C ANTIBODY, DIAGNOSTIC W/ RFX TO HCV RNA Routine 06/22/2019 6:07 AM EDT from Last 3 Months or Most Recently Relevant to Health Maintenance Results * Hepatitis C antibody diagnostic, with reflex (06/22/2019 6:07 AM EDT) Hep C Antibody, IgG Non-React cintia Non-React cintia 06/22/2019 8:08 AM EDT [facility] Comment: Performed on Siemens Advia Centaur Not infected with HCV, unless recent infection is suspected or other evidence exists to indicate HCV infection. This assay can be affected by patients taking high dose biotin supplements (>5mg/day). An eight hour wait time or washout period is necessary for accurate test results following high doses of biotin Blood Venous blood / Unknown Venipuncture / Unknown 06/22/2019 6:07 AM EDT 06/22/2019 6:47 AM EDT us Maria Elena Rojas DO LAB BLOOD ORDERABLES Final Re sult [facility] [id number] [place] [address], from Last 3 Months or Most Recently Relevant to Health Maintenance Additional Health Concerns Active Problems Noted Date Diagnosed Date Depression 07/08/2021 Substance Use 07/08/2021 Aftercare 07/08/2021 Insurance MEDICAID IN-STATE WORKERS COMP Advance Directives * Full Code (Latest Code Status on File) Date Activated Date Inactivated Comments 06/23/2019 3:08 PM 06/26/2019 5:26 PM * Full Code Date Activated Date Inactivated Comments 06/22/2019 1:03 AM 06/23/2019 3:07 PM Care Teams Car Changer Relationship Specialty Start Date End Date Doreen Goldman PA PCP - General Internal Medicine 04/13/20
--- OUTSIDE RECORDS SUMMARY | 2024-05-20 08:37 | XMS_ITS | Clinical Summary ---
Author Organization [facility] Address [address] [place] [address] Care Team Providers Care Computational Physicist Name Role Phone Unavailable Primary Care Provider Unavailabl e Source Comments PLEASE NOTE, if this patient is a minor, it may be UNLAWFUL to discuss sensitive information that is contained in these records (such as FAMILY PLANNING, MENTAL HEALTH or SUBSTANCE ABUSE) with the minor patient's parent or other person without the patient's specific authorization.[facility] Allergies Active Allergy Reactions Criticality Noted Date Comments Fish Containing Products 06/23/2019 Other reaction(s): Nausea Penicillins Hives High 03/09/2014 Other reaction(s): Unknown Sertraline Nausea and Vomiting High 06/29/2014 Other reaction(s): GI Upset ?dystonia ?dystonia ?dystonia Medications gabapentin (NEURONTIN) 600 mg tablet TK 1 T PO TID 07/04/2019 Active baclofen (LIORESAL) 10 mg tablet TK 1 T PO TID 08/07/2019 Active disulfiram (ANTABUSE) 250 mg tablet Take 250 mg by mouth 06/26/2019 Active fluticasone propionate (FLONASE) 50 mcg/actuation nasal spray Place 1 [place] into the nostril(s) 06/06/2019 Active levocetirizine (XYZAL) 5 mg tablet Take 5 mg by mouth 06/06/2019 Active naloxone (NARCAN) 4 mg/actuation nasal spray Place 4 mg into the nostril(s) 08/18/2018 Active naltrexone (DEPADE) 50 mg tablet Take 50 mg by mouth 02/11/2016 Active nicotine (NICODERM CQ) 21 mg/24 hr patch TRIXIE 1 PA EXT TO THE SKIN 1 TIME EACH DAY 06/26/2019 Active traZODone (DESYREL) 100 mg tablet Take 100 mg by mouth 02/11/2016 Active Active Problems Problem Noted Date Diagnosed Date Alcohol use disorder, severe, dependence (HCC-CM S) 09/10/2019 Immunizations Name Administration Dates Next Due PPD 09/10/2019,02/04/2016 TDAP 01/25/2016 Family History Medical History Relation Name Comments No Known Problems Brother Alcohol/Drug Abuse Father No Known Problems Mother No Known Problems Sister Relation Name Status Comments Brother Father Mother Sister Social History Tobacco Use Types Packs/Day Years Used Date Smoking Tobacco: Every Day Cigarettes Alcohol Use Standard Drinks/Week Comments Yes 0 (1 standard drink = 0.6 oz pur e alcohol) Social Connections Answer Date Recorded Social Connections and Isolation 0 09/10/2019 Financial Resource Strain Answer Date R ecorded Financial Resource Strain 0 2019 Stress Answer Date Recorded Stress 0 09/10/2019 Physical Activity Answer Date Recorded Physical Activity 0 09/10/2019 Food Insecurity Answer Date Recorded Food 0 09/10/2019 Transportation Needs Answer Date Record ed Transportation 0 09/10/2019 Housing Stability Answer Date Recorded Housing 0 09/10/2019 Safety and Environment Answer Date Zach rded Safety 0 09/10/2019 Utilities Answer Date Recorded Utilities 0 09/10/2019 Employment Answer Date Recorded Employment 0 09/10/2019 Sex and Gender Information Value Date Recorded Sex Assigned at Not on file Legal Sex Male 6:52 PM PDT Gender Identity Not on file Sexual Orientation Not on file Last Filed Vital Signs Vital Sign Reading Time Taken Comments Blood Pressure 129/92 09/14/2019 7:21 AM EDT Pulse 100 09/14/2019 7:21 AM EDT Temperature 36.6 ??C (97.9 ??F) 09/14/2019 7:21 AM ED T Respiratory Rate 17 09/14/2019 7:21 AM EDT Oxygen Saturation - - Inhaled Oxygen Concentration - - Weight 74.4 kg (164 lb) 09/10/2019 10:58 PM EDT Height 177.8 cm (5' 10 ) 09/10/2019 10:58 PM EDT Body Mass Index 23.53 09/10/2019 10:58 PM EDT Plan of Treatment Not on file Insurance [place] MEDICA[place] Member Subscriber Plan / Payer (Ef fective 2019-Present) Name:Contreras Khan Relation to Subscriber:Self Name:Contreras Khan Payer ID:[id number] Group ID:Not on file Type:Medicaid Address: [facility] [address] [place] [address]
--- OUTSIDE RECORDS SUMMARY | 2024-05-20 08:37 | XMS_ITS | Encounter Summary ---
Author Organization [facility] Address [address] [place] [address] Care Team Providers Care Unit Control Worker Name Role Phone Edna Parrish MD Primary Care Provider [phone] Lissy Rosales SUPERVISOR PRODUCTION DEPARTMENT Unavailable [phone] Anselmo Ferro MD Unavailable +[phone] Jas Fontenot BIN CLEANER Unavailable Azam Cavanaugh LADC Unavailable +1-000-000- 0000 Massimo Morales Unavailable Erum Cash BIN CLEANER Unavailable +1-000-0 00-0000 Suzanna See SUPERVISOR PRODUCTION DEPARTMENT Unavailable +- [phone] Gracie Ramírez MD Unavailable + [phone] Ori Argueta CHIEF DESIGN ENGINEER Unavailable +[phone] Cole Burris BIN CLEANER Unavailable +[phone] Ese Granados BIN CLEANER Unavailable +[phone] Clemente Isabel BULKER Unavailable [phone] Joanne Corral CHIEF DESIGN ENGINEER Unavailable + [phone] Nancy Ly VIDEOTAPE SALES REPRESENTATIVE Unavailable +[phone] Flakita Marshall LADC Unavailable +1-00 0-000-0000 Sarahi Haskins BIN CLEANER Unavailable +[phone] Bryce Trinidad Unavailable +-[phone] Kamryn Harris SUPERVISOR PRODUCTION DEPARTMENT Unavailable +[phone] Jose Francisconiall Jenna SUPERVISOR PRODUCTION DEPARTMENT Unavailable [phone] Jason Chahal SUPERVISOR PRODUCTION DEPARTMENT Unavailable +[phone] Daniel Abbott SUPERVISOR PRODUCTION DEPARTMENT Unavailable +1-000-000 -0000 Edna Parrish MD Unavailable +[phone] Benito Love Unavailable Conrad Pearce SUPERVISOR PRODUCTION DEPARTMENT Unavailable +[phone] SebastiánClemente howard BIN CLEANER Unavailable + -[phone] Norbert Savage SUPERVISOR PRODUCTION DEPARTMENT Unavailable [phone] Jenna Gallo SUPERVISOR PRODUCTION DEPARTMENT Unavailable Jumana Nguyen Unavailable [phone] Johnny Ferro BULKER Unavailable +[phone] Myccameron, Generic Provider Unavailable + [phone] Carli Guerra [facility] Unavailable +[phone] Jayashree Garnica SUPERVISOR PRODUCTION DEPARTMENT Unavailable +[phone] Mayr Lieberman MEAT CUTTING TEACHER Unavailable [phone] Nilo Butcher VIDEOTAPE SALES REPRESENTATIVE Unavailable [phone] James Lira MD Unavailable Shaylee Bond PA-C Unavailable [phone] Encounter Details Date Type Department Care Team (Late st Contact Info) Description 01/18/[address] [place] [address] Edna Parrish MD [address] [place] [address] Social History Tobacco Use Types Packs/Day Years Used Date Smoking Tobacco: Every Day Cigarettes 0 16 Smokeless Tobacco: Former Alcohol Use Standard Drinks/Week [...] AM EDT documented as of this encounter Miscellaneous Notes * Telephone Encounter - Chanelle Soria LPN - 01/18/2019 4:44 PM EST Spoke to patient and he does not want to wait for Amanda's return. I gave him the 3 behavior health groups name and numbers that Amanda advised to our office. I also advised him if he is still does not want to wait then he can go to a walk in or ED. * Telephone Encounter - Damaris Cuellar - 01/18/2019 2:14 PM EST Patient called asking for provider advice on going on Antabuse documented in this encounter Plan of Treatment Not on file documented as of this encounter Visit Diagnoses Not on filedocumented in this encounter Care Teams Unit Control Worker Relationship Specialty Start Date End Date Edna Parrish MD [address] [place] [address] PCP - General Internal Medicine 10/27/17 05/07/24 Edna Parrish MD [address] [place] [address] PCP - PCMH+ Attributed 03/08/19 Lissy Rosales LCSW [address] [place] [address] Clinician Clinical Social Work 12/13/17 06/04/21 Anselmo Ferro MD [address] [place] [address] Psychiatry, General 06/27/19 Jas Fontenot LPC [address] [place] [address] Director Intelligence Analysis Programs Clinical Social Work 06/27/19 Azam Cavanaugh [facility] [address] [place] [address] Director Intelligence Analysis Programs Clinical Social Work 06/28/19 Massimo Morales [address] [place] [address] Clinician Social Work 07/03/19 Erum Cash [facility] [address] [place] [address] Director Intelligence Analysis Programs Clinical Social Work 07/14/19 Suzanna See [facility] [address] [place] [address] [phone] Clinician Social Work 10/20/19 Gracie Ramírez MD [address] [place] [address] Psychiatry, General 10/25/19 Ori Argueta, CHIEF DESIGN ENGINEER [address] [place], [place] [phone] Clinician Social Work 10/25/19 08/31/21 Cole Burris BIN CLEANER [address] [place] [address] [phone] Director Intelligence Analysis Programs Clinical Social Work 10/26/19 Ese Granados LPC [address] [place] [address] Director Intelligence Analysis Programs Clinical Social Work 10/26/19 Clemente Isabel, [facility] [address] [facility] [place] [address] Systems Program Manager 10/27/19 Joanne Corral, CHIEF DESIGN ENGINEER [address] [place] [address] Clinician Social Work 10/30/19 Nancy Ly, VIDEOTAPE SALES REPRESENTATIVE [address] [place] [address] Nurse Practitioner Psychiatry, General 10/31/19 Flakita Marshall, [facility] [address] [place] [address] Director Intelligence Analysis Programs Clinical Social Work 11/09/19 08/31/21 Sarahi Haskins [facility] [address] [place] [address] Director Intelligence Analysis Programs Clinical Social Work 11/10/19 08/31/21 Bryce Trinidad [address] [place] [address] Clinician 11/16/19 Kamryn Harris, [facility] [address] [place] [address] Clinician Social Work 11/17/19 10/26/21 Jenna Shore [facility] [address] [place] [address] Clinician Social Work 11/22/19 Jason Chahal, [facility] [address] [place] [address] Director Intelligence Analysis Programs Clinical Social Work 11/23/19 Daniel Abbott, [facility] [address] [place] [address] Director Intelligence Analysis Programs Clinical Social Work 12/25/19 10/26/21 Love Oliver [address] [facility] [address] [place] [address] ICP Orthopaedic Surgeon 01/26/2007/21 Conrad Pearce, LUIS [address] [facility] 4 [place] [address] ICP Community Tumbler Machine Operator 04/18/20 Clemente Lowery [facility] [address] [place] [address] Director Intelligence Analysis Programs Clinical Social Work 05/14/21 Norbert Savage LCSW [address] [place] [address] Primary Clinician Clinical Social Work 05/15/2110/07 Jenna Gallo, [facility] [address] [place] [address] Clinician Social Work 08/13/21 10/27/21 Jumana Nguyen [address] [place] [address] Clinician Social Work 08/27/21 Johnny Ferro, [address] [address] Primary Clinician Social Work 09/15/21 10/27/21 Kole Bullock MD [address] [place] [address] [address] [address] Landscape Architect 04/16/22 Carli Guerra LADC [address] [place] [address] [phone] Director Intelligence Analysis Programs Clinical Social Work 06/10/23 Jayashree Garnica LCSW [address] [place] [address] Director Intelligence Analysis Programs Social Work 06/11/23 Mary Lieberman LMFT [address] [place] [address] Clinician Social Work 06/14/23 Nilo Butcher APRN [address] [place] [address] Nurse Practitioner Psychiatry, General 06/14/23 James Lira MD [address] [place] [address] Psychiatry, General 06/15/23 Shaylee Bond PA-C [address] [place] [address] Physician Meat Grader Psychiatry, General 09/03/23 documented as of this encounter
--- OUTSIDE RECORDS SUMMARY | 2024-05-20 08:37 | XMS_ITS | Encounter Summary ---
Author Organization [facility] Address [address] [place] [address] Care Team Providers Care Sales Support Consultant Name Role Phone Edna Parrish MD Primary Care Provider [phone] Lissy Rosales INDUSTRIAL SEAMSTRESS Unavailable Anselmo Ferro MD Unavailable +80 Jas Fontenot COMPUTER NUMERICAL CONTROL OPERATOR Unavailable [phone] Azam Cavanaugh LADC Unavailable +1-000-000- 0000 Massimo Morales Unavailable Erum Cash COMPUTER NUMERICAL CONTROL OPERATOR Unavailable +1-000-0 00-0000 Suzanna See INDUSTRIAL SEAMSTRESS Unavailable +- [phone] Gracie Ramírez MD Unavailable + [phone] Ori Argueta WAIVER ANALYST Unavailable +[phone] Cole Burris COMPUTER NUMERICAL CONTROL OPERATOR Unavailable +[phone] Ese Granados COMPUTER NUMERICAL CONTROL OPERATOR Unavailable +[phone] Clemente Isabel MOLD REPAIR TECHNICIAN Unavailable +[phone] Joanne Corral WAIVER ANALYST Unavailable + [phone] Nancy Ly MICROFILM PROCESSOR Unavailable +5280 Flakita Marshall LADC Unavailable +1-00 0-000-0000 Sarahi Haskins COMPUTER NUMERICAL CONTROL OPERATOR Unavailable [phone] Bryce Trinidad Unavailable +[phone] Kamryn Harris INDUSTRIAL SEAMSTRESS Unavailable +[phone] Jose FranciscoJenna tierney INDUSTRIAL SEAMSTRESS Unavailable [phone] Jason Chahal INDUSTRIAL SEAMSTRESS Unavailable +[phone] Daniel Abbott INDUSTRIAL SEAMSTRESS Unavailable +1-000-000 -0000 Edna Parrish MD Unavailable +[phone] Benito Love Unavailable Conrad Pearce INDUSTRIAL SEAMSTRESS Unavailable +[phone] SebastiánClemente howard COMPUTER NUMERICAL CONTROL OPERATOR Unavailable +[phone] Norbert Savage INDUSTRIAL SEAMSTRESS Unavailable [phone] Jenna Gallo INDUSTRIAL SEAMSTRESS Unavailable Jumana Nguyen Unavailable [phone] Pillo Johnny M MOLD REPAIR TECHNICIAN Unavailable +[phone] Mycharsita, Generic Provider Unavailable +[phone] Carli Guerra [facility] Unavailable +[phone] Jayashree Garnica INDUSTRIAL SEAMSTRESS Unavailable +[phone] Mary Lieberman ENERGY CONSERVATION TECHNICIAN Unavailable [phone] Nilo Butcher MICROFILM PROCESSOR Unavailable [phone] James Lira MD Unavailable Shaylee Bond PA-C Unavailable [phone] Encounter Details Date Type Department Care Team (Late st Contact Info) Description 10/05/2018 Scanned Document [address] [place] [address] Edna Parrish MD [address] [place] [address] Social History Tobacco Use Types [...] on filedocumented in this encounter Care Teams Sales Support Consultant Relationship Specialty Start Date End Date Edna Parrish MD [address] [place] [address] PCP - General Internal Medicine 10/27/17 05/07/24 Edna Parrish MD [address] [place] [address] PCP - PCMH+ Attributed 03/08/19 Lissy Rosales LCSW [address] [place] [address] Clinician Clinical Social Work 12/13/17 06/04/21 Anselmo Ferro MD [address] [place] [address] Psychiatry, General 06/27/19 Jas Fontenot LPC [address] [place] [address] Traveling Representative Clinical Social Work 06/27/19 Azam Cavanaugh LADC [address] [place] [address] Traveling Representative Clinical Social Work 06/28/19 Massimo Morales [address] [place] [phone] Clinician Social Work 07/03/19 Erum Cash LPC [address] [place] [address] Traveling Representative Clinical Social Work 07/14/19 Mayi Suzanna, INDUSTRIAL SEAMSTRESS [address] [facility] [address] Clinician Social Work 10/20/19 Gracie Ramírez MD [address] [place] [address], [place] [address] Psychiatry, General 10/25/19 Ori Argueta, WAIVER ANALYST [address] [place] [address] Clinician Social Work 10/25/19 08/31/21 Cole Burris LPC [address] [place] [address] Traveling Representative Clinical Social Work 10/26/19 Ese Granados COMPUTER NUMERICAL CONTROL OPERATOR [address] [place] [address] Traveling Representative Clinical Social Work 10/26/[address] [place] [address] Casino Surveillance Officer 10/27/19 Joanne Corral, WAIVER ANALYST [address] [place] [address] Clinician Social Work 10/30/19 Nancy Ly APRN [address] [facility] [address] Nurse Practitioner Psychiatry, General 10/31/19 Flakita Marshall, [facility] [address] [facility] [address] Traveling Representative Clinical Social Work 11/09/19 08/31/21 Sarahi Haskins, [facility] [address] [place] [address] Traveling Representative Clinical Social Work 11/10/19 08/31/21 Bryce Trinidad [address] [place] [address] Clinician 11/16/19 Kamryn Harris, [facility] [address] [place] [address] Clinician Social Work 11/17/19 10/26/21 Jenna Shore, [facility] [address] [place] [address] Clinician Social Work 11/22/19 Jason Chahal, [facility] [address] [place] [address] Traveling Representative Clinical Social Work 11/23/19 Daniel Abbott, [facility] [address] [place] [address] Traveling Representative Clinical Social Work 12/25/19 10/26/21 Love Oliver [address] [facility] [address] [place] [address] ICP Labor Delivery Rn 01/26/2007/21 Conrad Pearce, [facility] [address], [facility] 4 [place] [address] ICP Community Picu Nurse 04/18/20 Clemente Lowery, [facility] [address] [place] [address] Traveling Representative Clinical Social Work 05/14/21 Norbert Savage, INDUSTRIAL SEAMSTRESS [address] [place] [address] Primary Clinician Clinical Social Work 05/15/2110/07 Jenna Gallo, [facility] [address] [place] [address] Clinician Social Work 08/13/21 10/27/21 Jumana Nguyen [address] [place] [address] Clinician Social Work 08/27/21 Johnny Ferro [address] [address] Primary Clinician Social Work 09/15/21 10/27/21 Kole Bullock MD [address] [place] [address] Referring Provider Rv Servicer 04/16/22 Carli Guerra [facility] [address] [place] [address] Traveling Representative Clinical Social Work 06/10/23 Jayashree Garnica INDUSTRIAL SEAMSTRESS [address] [place] [address] Traveling Representative Social Work 06/11/23 Mary Lieberman LMFT [address] [place] [address] Clinician Social Work 06/14/23 Nilo Butcher, MICROFILM PROCESSOR [address] [place] [address] Nurse Practitioner Psychiatry, General 06/14/23 James Lira MD [address] [place] [address] Psychiatry, General 06/15/23 Sahylee Bond PA-C [address] [place] [address] Physician Vat Operator Psychiatry, General 09/03/23 documented as of this encounter
--- OUTSIDE RECORDS SUMMARY | 2024-05-20 08:37 | XMS_ITS | Clinical Summary ---
Author Organization [facility] Address [address] [place] [address] Care Team Providers Care Thermal Intelligence Analyst Name Role Phone Anselmo Ferro MD Unavailable +80 Jas Fontenot LATEX CASTER Unavailable [phone] MaoAzam LADC Unavailable +1-000-000- 0000 Massimo Morales Unavailable Erum Cash LATEX CASTER Unavailable +1-000-0 00-0000 Suzanna See GUN CLUB MANAGER Unavailable +- [phone] Gracie Ramírez MD Unavailable +80 Cole Burris LATEX CASTER Unavailable +80 Ese Granados LATEX CASTER Unavailable +80 Clemente Isabel GRINDER TENDER Unavailable [phone] Joanne Corral CASCADE OPERATOR Unavailable +80 Nancy Ly FOOD SERVICE CASHIER Unavailable +80 Bryce Trinidad Unavailable +[phone] Jenna Shore GUN CLUB MANAGER Unavailable [phone] Jason Chahal GUN CLUB MANAGER Unavailable +80 Conrad Pearce GUN CLUB MANAGER Unavailable [phone] Clemente Lowery LATEX CASTER Unavailable +80 Jumana Nguyen Unavailable [phone] Kole Bullock MD Unavailable [phone] Carli Guerra LAD Unavailable Jayashree Garnica GUN CLUB MANAGER Unavailable Jamal PhippsMary CENTER MACHINE OPERATOR Unavailable Nilo Butcher FOOD SERVICE CASHIER Unavailable James Lira MD Unavailable Shaylee Bond PA-C Unavailable [phone] Allergies Active Allergy Reactions Criticality Noted Date Comments Fish-Derived Products Unknown/Patient an d Family Unable to Define Medium 06/19/2019 Penicillins Hives High 06/27/2016 Sertraline Hcl GI Intolerance/Nausea/Vomiting High 06/27/2016 ?dystonia Medications Medication Sig Dispensed Refills Start Date End Date Status mirtazapine (REMERON) 15 MG tabletIndications:Juan Alberto nash depressive disorder, recurrent episode, moderate (HCC) Take 1 tablet (15 mg total) by mouth nightly. 10 tablet 09/08/2023 Active gabapentin (NEURONTIN) 300 MG capsuleIndications:S evere alcohol use disorder (HCC) Take 2 capsules (600 mg total) by mouth 3 (three) times a day. 60 capsule 09/16/2023 Active Active Problems Patient Care Coordination No te Formatting of this note migh t be different from the original. Dentist - [facility] Problem Noted Date Diagnosed Date Severe alcohol use disorder 08/26/2023 Insomnia 08/24/2023 Panic attacks 08/24/2023 Major depressive disorder, recurrent episode, mo derate 08/23/2023 ADD (attention deficit disorder) 08/23/2023 Cannabis use disorder, severe, dependence 2023 Hallucinogen abuse 08/23/2023 Unemployed 08/23/2023 Severe episode of recurrent major depressive disorder, without psychotic features 06/14/2023 Episode of recurrent major depressive disorder 0 04/16/2023 Grade I hemorrhoids 04/14/2022 Electronic cigarette use 10/02/2021 Opioid use disorder, moderate, in sustained travis ssion 06/27/2019 Generalized anxiety disorder 06/21/2019 Seasonal allergies 06/06/2019 Cigarette nicotine dependence without complicati on 06/06/2019 Influenza vaccination declined 02/17/2019 Attention deficit disorder (ADD) without hyperac tivity 10/29/2017 Immunizations Name Administration Dates Next Due PPD Test 02/04/2016 Tdap 01/25/2016 Family History Medical History Relation Name Comments Alcohol abuse Cousin Drug abuse Cousin Alcohol abuse Father Drug abuse Father Heart attack Father Substance Abuse Father Sudden Father Anxiety disorder Mother Relation Name Status Comments Cousin Father Mother Alive Social History Tobacco Use Types Packs/Day Years Used Date Smoking Tobacco: Former Cigarettes 0.3 18 2 006 - 02/26/2022 Smokeless Tobacco: Former Chew Quit: 2008 Tobacco Cessation:Counseling Given: Not Answered Alcohol Use Standard Drinks/Week Comments Yes 0 (1 standard drink = 0.6 oz pure alcohol) vodka and beer in excess (24 drinks a week) PHQ-2 Answer Date Recorded PHQ-2 Total Score 6 04/16/2023 Sex and Gender Information Value Date Recorded Sex Assigned at Male 01/05/2023 8:32 AM EDT Gender Identity Male 01/05/2023 8:32 AM EDT Sexual Orientation Choose not to disclose 2022 8:32 AM EDT Last Filed Vital Signs Vital Sign Reading Time Taken Comments Blood Pressure 100/60 09/16/2023 2:45 PM EDT Pulse 73 09/16/2023 2:45 PM EDT Temperature 36.9 ??C (98.5 ??F) 09/16/2023 2:45 PM ED T Respiratory Rate 18 09/16/2023 2:45 PM EDT Oxygen Saturation 96% 09/16/2023 2:45 PM EDT Inhaled Oxygen Concentration - - Weight 75.8 kg (167 lb) 09/16/2023 2:45 PM EDT Height 177.8 cm (5' 10 ) 09/16/2023 2:45 PM EDT Body Mass Index 23.96 09/16/2023 2:45 PM EDT Plan of Treatment Health Maintenance Due Date Last Done Comments COVID-19 Vaccine ( season) 2023 03/31/2021, 06/13/2020 DTaP/Tdap/Td Vaccines (2 - Td or Tdap) 01/24/2026 01/25/2016 HIV Screening Completed 08/23/2023, 11/06/2019 Hepatitis C Virus Screening Completed 08/06, 11/06/2019 HPV Vaccines Aged Out No longer eligi ble based on patient's age to complete this topic Hepatitis B Vaccines Discontinued Influenza Vaccine Discontinued Pneumococcal Vaccine: Pediatric (0-5 Years) and At-Risk Patients (6 to 49 Years) Discontinued Goals Goal Patient Goal Type Associated Problems [...] depression Care Plan Depression No Jason Chahal, LUIS I am here for basic needs Care Plan Depression No Jason Chahal, LUIS Contreras will increase insight into his mental health. Care Plan Depression Jason Cullen LCSW Acquire the necessary skills to maintain long-term sobriety from all mood-altering substances and live a life free of chemicals Care Plan Alcohol/Drug No Jason Chahal LCSW Note: Contreras reports being sober since starting the program. He reports some triggers and urges but reports, they pass quickly. I tell myself I do not want lose all that currently have and have to start over again . I am here for basic needs Care Plan Alcohol/Drug No Jason Chahal, GUN CLUB MANAGER Contreras will improve his sober support system. Care Plan Alcohol/Drug No Jason Chahal, LUIS Note: Contreras has attended over six meetings since starting to attend program. Gain self-insight and awareness through use of MARS tool. Care Plan MARS-12 No Jason Chahal, GUN CLUB MANAGER Contreras completed an updated MARS and scored a (4) on statement (2), ? I believe I make good choices in my life.? Care Plan MARS-12 No Jason Chahal, LUIS Note: This score reflects a one point increase. To measure progress in treatment and become aware of strategies to encourage positive outcomes. Care Plan MARS-12 No Jason Chahal, LUIS Decrease thoughts that trigger anxiety, and increase positive, self-enhancing self-talk. Care Plan Generalize Anxiety Disorder No Johnny Ferro LMSW Acquire the necessary skills to maintain long-term sobriety from all mood-altering substances. Care Plan ADD-Substance Use Disorders No Johnny Ferro LMSW Procedures Procedure Name Priority Date/Time Associated Diagnosis Comments HIV 1/2 AG/AB CMIA REFLEX TO CONFIRMATION Routine 08/23/2023 7:40 AM EDT HEPATITIS C VIRUS (HCV) ANTIBODY Routine 08/23/2023 7:40 AM EDT from Last 3 Months or Most Recently Relevant to Health Maintenance Results * HIV 1/2 Ag/Ab CMIA Reflex to Confirmation (08/23/2023 7:40 AM EDT) HIV Ag/Ab, 4th Gen NON-REACT [place] NON-REACT [place] [facility] Comment: HIV-1 antigen and HIV-1/HIV-2 antibodies were not detected. There is no laboratory evidence of HIV infection. PLEASE NOTE: This information has been disclosed to you from records whose confidentiality may be protected by state law. ??If your state requires such protection, then the state law prohibits you from making any further disclosure of the information without the specific written consent of the person to whom it pertains, or as otherwise permitted by law. A general authorization for the release of medical or other information is NOT sufficient for this purpose. ?? For additional information please refer to http://[employer].Beeline/faq/THI180 (This link is being provided for informational/ educational purposes only.) The performance of this assay has not been clinically validated in patients less than 2 years old. 08/23/2023 7:40 AM EDT 08/23/2023 9:37 AM EDT Elen Ellsworth APRN LAB BLOOD ORDERABLES Performing Organization Address [facility] de Phone Number [employer] [address] [place] [phone] * HEPATITIS C VIRUS (HCV) ANTIBODY (08/23/2023 7:40 AM EDT) Hepatitis C Antibody NON-REACT [place] NON-REACT [place] [employer] Comment: HCV antibody was non-reactive. There is no laboratory evidence of HCV infection. In most cases, no further action is required. However, if recent HCV exposure is suspected, a test for HCV RNA (test code 76149) is suggested. For additional information please refer to http://[employer].Beeline/faq/AVS75e0 (This link is being provided for informational/ educational purposes only.) 08/23/2023 7:40 AM EDT 08/23/2023 9:37 AM EDT Elen Liamjayesh FOOD SERVICE CASHIER LAB BLOOD ORDERABLES Performing Organization Address [facility] de Phone Number [employer] [address] [place] [phone] from Last 3 Months or Most Recently [...] Anxiety Disorder 10/08/2021 ADD-Substance Use Disorders 10/08/2021 Care Teams Thermal Intelligence Analyst Relationship Specialty Start Date End Date Anselmo Ferro MD [address] [place] [address] Psychiatry, General 06/27/19 Jas Fontenot LPC [address] [place] [address] Classification Case Manager Clinical Social Work 06/27/19 Azam Cavanaugh LADC [address] [place] [address] Classification Case Manager Clinical Social Work 06/28/19 Massimo Morales [address] [place] [phone] Clinician Social Work 07/03/19 Erum Cash LPC [address] [place] [address] Classification Case Manager Clinical Social Work 07/14/19 Suzanna See, GUN CLUB MANAGER [facility] [place] [address] Clinician Social Work 10/20/19 Gracie Ramírez MD [address] [place] [address], [place] [address] Psychiatry, General 10/25/19 Cole Burris, [facility] [address] [place] [address] Classification Case Manager Clinical Social Work 10/26/19 Ese Granados, [facility] [employer] [place], [place] [address] Classification Case Manager Clinical Social Work 10/26/19 Clemente Isabel, [address] [place] [address] Tooth Inspector 10/27/19 Joanne Corral, [facility] [address] [place] [address] Clinician Social Work 10/30/19 Nancy Ly APRN [address] [place] [address] Nurse Practitioner Psychiatry, General 10/31/19 Bryce Trinidad [address] [facility] [place] [address] Clinician 11/16/19 Jenna Shore [facility] [address] [place] [address] Clinician Social Work 11/22/19 Jason Chahal, GUN CLUB MANAGER [address] [place] [address] Classification Case Manager Clinical Social Work 11/23/19 Conrad Pearce, GUN CLUB MANAGER [address] [place] [address] ICP Community Porter Head 04/18/20 Clemente Lowery LATEX CASTER [address] [place] [address] Classification Case Manager Clinical Social Work 05/14/21 Jumana Nguyen [address] [place] [address] Clinician Social Work 08/27/21 Kole Bullock MD [address] [place] [address] Referring Provider Tax Associate Attorney 04/16/22 Carli Guerra [facility] [address] [place] [address] Classification Case Manager Clinical Social Work 06/10/23 Jayashree Garnica LCSW [address] [place] [address] Classification Case Manager Social Work 06/11/23 Mary Lieberman LMFT [address] [place] [address] Clinician Social Work 06/14/23 Nilo Butcher APRN [address] [place] [address] Nurse Practitioner Psychiatry, General 06/14/23 James Lira MD [address] [place] [address] Psychiatry, General 06/15/23 Shaylee Bond PA-C [address] [place] [address] Physician Technology Sales Representative Psychiatry, General 09/03/23
[2024-05-20] MEDS: LORazepam 1 MG TABLET 2 MG PO ×2 (09:24→15:37)
--- NOTE | 2024-05-20 09:28 | PC.NURSE ---
Pt c/o severe anxiety; PA made aware; pt treated per orders
[2024-05-20] MEDS: Ondansetron ODT 4 MG TAB.RAPDIS TRANSLINGU (10:11)
[2024-05-20] MEDS: Lidocaine HCl 1 % MPF 5 ML VIAL SUBCUT ×2 (10:11→11:02)
[2024-05-20] MEDS: cephALEXin 500 MG CAPSULE PO ×2 (11:08→16:54)
[2024-05-20 11:35] LABS: MANUAL DIFF FLAG NO
[2024-05-20 11:39] LABS: Basophils Percent Auto 0.3 % (0-2); Hematocrit 30.1 % (42.0-52.0); Hemoglobin 10.3 g/dl (14.0-18.0); Imm Gran Abs Auto 0.03 X10*3/uL (0.00-0.03); Imm Gran Pct Auto 0.3 % (0.0-0.4); Lymphocytes Absolute Auto 2.2 X10*3/uL (1.2-4.9); Lymphocytes Percent Auto 19.2 % (20-40); Mean Corpuscular HGB Conc 34.2 g/dl (31.0-36.0); Mean Corpuscular Hemoglobin 31.2 pg (27.0-33.0); Mean Corpuscular Volume 91.2 fL (80.0-98.0); Mean Platelet Volume 9.3 fL (9.4-12.4); Monocytes Absolute Auto 0.4 X10*3/uL (0.1-1.2); Monocytes Percent Auto 3.1 % (2-11); Neutrophils Absolute Auto 8.8 x10*3/uL (2.0-8.3); Neutrophils Percent Auto 77.1 % (45-73); Platelet Count 171 X10*3/uL (160-400); Red Cell Distribution Width 12.2 % (11.0-16.0); White Blood Count 11.4 X10*3/uL (4.8-10.8)
[2024-05-20 12:03] LABS: Alanine Aminotransferase 32 U/L (0-40); Albumin Level 4.2 g/dL (3.5-5.0); Alkaline Phosphatase 46 U/L (39-117); Anion Gap 21 (12-20); Aspartate Amino Transferase 51 U/L (5-37); Bilirubin Direct 0.3 mg/dL (0.0-0.5); Bilirubin Total 0.9 mg/dL (0.0-1.0); Blood Urea Nitrogen 13 mg/dL (9-16); Carbon Dioxide 23 mmol/L (22-29); Chloride 96 mmol/L (96-108); Estimated Glomerular Filt Rate > 60; Ethanol 305 mg/dL; Glucose Random 130 mg/dL (60-115); Magnesium 1.3 mg/dL (1.6-2.6); Sodium 136 mmol/L (135-145); Total Protein 6.8 g/dL (6.5-8.0)
[2024-05-20 12:26] VITALS: BP 149/76; PULSE 130; RESP 16; TEMP 37.5; O2SAT 95
[2024-05-20 12:26] LABS: Appearance Urine Clear; Color Urine Yellow; Glucose Urine UA Negative (Negative); Leukocyte Esterase Urine Negative (Negative); Nitrite Urine Negative (Negative); PH 5.5 (5.0-9.0); Specific Gravity - Urine 1.015 (1.005-1.025); UMIC TRIGGER UACC YES; Urine Blood Trace (Negative); Urine Ketones Negative (Negative); Urine Protein Trace mg/dL (Neg-Trace)
[2024-05-20 12:28] VITALS: BP 142/76; PULSE 122; RESP 18; TEMP 37.1; O2SAT 95
[2024-05-20 12:29] LABS: Bacteria Urine None Seen (None Seen); RBC Urine 0-2 /HPF (0-2); Squamous Epithelial Cell Urine 0-2 /HPF (0-2); WBC Urine 0-5 /HPF (0-5)
[2024-05-20] MEDS: Magnesium Oxide 400 MG TABLET 800 MG PO (12:32)
[2024-05-20] MEDS: Chlorhexidine Gluc Oral Rinse 15 ML MOUTHWASH BUCCAL (12:34)
[2024-05-20 12:43] LABS: Amphetamine Screen Urine Not Detected (Not Detect); Barbiturates, Urine Not Detected (Not Detect); Benzodiazepines Screen Urine Not Detected (Not Detect); Buprenorphine Scr Not Detected (Not Detect); Cannabinoid Screen Urine POSITIVE (Not Detect); Cocaine Screen Urine Not Detected (Not Detect); Fentanyl, urine Not Detected (Not Detect); Methadone Screen, Urine Not Detected (Not Detect); Opiate Screen Urine Not Detected (Not Detect); Oxycodone Screen Urine Not Detected (Not Detect); Phencyclidine Screen Urine Not Detected (Not Detect)
--- NOTE | 2024-05-20 12:54 | PC.NURSE ---
Pt resting quietly on stretcher; wounds to chin and lip sutured; pt medicated per orders; CIWA 4; awaiting crisis consult; denies SI/HI at this time
--- NOTE | 2024-05-20 13:30 | MHC.RECOVRN ---
Met with Contreras in ED 22H to discuss ongoing alcohol use. Patient stated that for the last couple of weeks he has been drinking daily - about 1 pint of vodka. He states that recent stressors include a fight with his girlfriend. More specifically, he got into an argument with his girlfriend after finding out that she has been tracking him on her cell phone. He reports a history of 2 overdoses requiring hospitalization while mixing benzos with alcohol years ago . He reports multiple ATS admissions in [place] where he is from [facility]. He has tried naltrexone and Antabuse in the past. He states he has a hx of Borderline Personality Disorder and Anxiety. He is support and ATS seeking. He denies SI/HI (no ideation, plan, or intent) and denies AH/VH. Pt agreed for ATS referrals to be sent on his behalf. See recovery assessment for more info.
[2024-05-20] MEDS: chlordiazePOXIDE HCl 25 MG CAPSULE PO (13:40)
--- NOTE | 2024-05-20 13:59 | MHC.RECOVRN ---
ATS referral made per pt's request to the following ATS facilities: 1. [facility] in [place] 2. [facility] 3. [place] 4. [place] 5. [facility] Will follow up shortly via phone call.
--- NOTE | 2024-05-20 14:20 | PC.NURSE ---
Pt remains cooperative; reports increasing anxiety; PO Librium gv per orders; pt to go to pod to decrease external stimuli; pt changed into pod attire and pt belonings to be secured in the pod; report gv to ALBERTO Roy; pt aware
--- NOTE | 2024-05-20 14:22 | ECG_ITS ---
Test Reason : CHEST PAIN Blood Pressure : */* mmHG Vent. Rate : 105 BPM Atrial Rate : 105 BPM P-R Int : 138 ms QRS Dur : 82 ms QT Int : 334 ms P-R-T Axes : 27 3 19 degrees QTcB Int : 441 ms Sinus tachycardia Otherwise normal ECG No previous ECGs available Referred By: Lashay Dickerson Electronically Signed By: ORIANA TOVAR
[2024-05-20 14:29] VITALS: BP 132/76; PULSE 109; RESP 18; TEMP 37.1; O2SAT 95
[2024-05-20 17:00] VITALS: BP 132/76; PULSE 96; RESP 18; TEMP 37.1; O2SAT 96
== END 2024-05-20 17:01 | disposition other institution (70) ==
PROVIDERS: Physician Assistant; Emergency Provider Emergency Medicine
DX: F10.220 Alcohol dependence with intoxication, uncomplicated (principal); Y90.8 Blood alcohol level of 240 mg/100 ml or more; S01.81XA Laceration without foreign body of other part of head, initial encounter; S01.511A Laceration without foreign body of lip, initial encounter; W19.XXXA Unspecified fall, initial encounter; Y93.9 Activity, unspecified; Y92.410 Unspecified street and highway as the place of occurrence of the external cause; Y99.9 Unspecified external cause status; Z79.899 Other long term (current) drug therapy
CPT/HCPCS: 12013; 12051; 36415; 70450; 70486; 71250; 72125; 80048; 80076; 80307; 81001; 83735; 85025; 93005; 99284; J2003; S9485

== ENCOUNTER → 2024-05-20 08:28 | Outpatient (BNV) | payer MEDICAID, SELFPAY | PROVIDERS: Emergency Provider Emergency Medicine; Visit Provider Radiology Vascular & Interventional Radiology | DX: R07.81 Pleurodynia (principal); R23.3 Spontaneous ecchymoses; S09.90XA Unspecified injury of head, initial encounter; S05.91XA Unspecified injury of right eye and orbit, initial encounter; S09.93XA Unspecified injury of face, initial encounter | CPT/HCPCS: 70450; 70486; 71250; 72125 ==

== ENCOUNTER → 2024-05-20 14:22 | Outpatient (BNV) | payer MEDICAID, SELFPAY | PROVIDERS: Emergency Provider Emergency Medicine; Visit Provider Internal Medicine | DX: R00.0 Tachycardia, unspecified (principal); R07.9 Chest pain, unspecified | CPT/HCPCS: 93010 ==

== ENCOUNTER 2025-01-27 02:35 | Emergency (ER) | payer OTHER, SELFPAY ==
[2025-01-27 02:46] VITALS: BP 139/87; PULSE 94; RESP 18; TEMP 37.2; O2SAT 97; BMI 24.4
--- NOTE | 2025-01-27 02:59 | PC.NURSE ---
patient stated SI thoughts at triage to tailoring teacher. primary RN Amna and Ilya were made aware and security was called. patient was calm/cooperative with roving changer, requested girlfriend stay in room during roving changer. girlfriend took all belongings home. during roving changer, noted bruising to L. flank area, pt is unsure of how this happened and denies any pain to the area upon palpation. d/t situations in pod, pt is currently in 22 etienne with this RN as 1:1.
--- OUTSIDE RECORDS SUMMARY | 2025-01-27 02:59 | XMS_ITS | Clinical Summary ---
Author Organization [facility] Address [address] [place] [address] Phone Care Team Providers Care Tour Escort Name Role Phone Obtain, Unable To Primary Care Provider Unavaila ble Allergies Active Allergy Reactions Criticality Noted Date Comments Fish Containing Products Nausea Low 03/11/2021 Penicillins Hives High 03/09/2014 Sertraline GI Upset High 06/29/2014 ?dystonia Medications * This document contains information received from the source organization and may not represent a complete record from that organization. melatonin 3 mg tablet Take 1 tablet (3 mg total) by mouth nightly as needed, may repeat x 1. 0 0 Active busPIRone (BUSPAR) 10 mg tablet BUSPIRONE HCL 10 MG TABS 6 Active disulfiram (ANTABUSE) 250 mg tablet Take 250 mg by mouth daily. 1 Active hydrOXYzine (VISTARIL) 50 mg capsule VISTARIL 50 MG CAPS 7 Active gabapentin (NEURONTIN) 300 mg capsule Take 600 mg by mouth. 6 Active traZODone (DESYREL) 50 mg tablet Take 50 mg by mouth daily as needed. 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 (HC Code) 10/15/2019 Alcohol use disorder, severe, dependence (HC Cod e) 04/18/2015 Resolved Problems Problem Noted Date Diagnosed Date Resolved Date Anxiety 09/06/2016 10/18/2019 Depression 01/29/2016 09/06/2016 Suicidal ideation 04/18/2015 09/06/2016 Alcohol dependence with acut e alcoholic intoxication (HC Code) 03/10/2015 09/06/2016 Acute alcohol intoxication, with unspecified complication 02/07/2015 02/08/2015 Suicidal ideation 02/06/2015 03/10/2015 Panic attacks 02/06/2015 03/10/2015 Depressive disorder 03/14/2014 10/16/19 20 Alcohol use disorder, severe , in controlled environment 03/09/2014 03/10/2015 Immunizations Immunization Administration Dates Next Due TB Screening (PPD/Quantiferon) 04/13/2021,2021,02/04/2016 Family History Medical History Relation Name Comments Alcohol abuse Father Drug abuse Father Alcohol abuse Maternal Cousin paternal and maternal Relation Name Status Comments Father Maternal Cousin paternal and maternal Alive Social History Tobacco Use Types Packs/Day Years Used Date Smoking Tobacco: Former Cigarettes 0 Q uit: 12/13/2014 Smokeless Tobacco: Never Tobacco Cessation:Counseling Given: Yes Alcohol Use Standard Drinks/Week Comments Yes 56 (1 standard drink = 0.6 oz pu re alcohol) 8 nips of vodka daily Education Answer Date Recorded What is the highest level of school you have completed or the highest degree you have received? Some college, no degree 03/11/2021 Sex and Gender Information Value Date Recorded Sex Assigned at Not on file Legal Sex Male 7:57 AM EST Gender Identity Not on file Sexual Orientation Not on file Last Filed Vital Signs Vital Sign Reading Time Taken Comments Blood Pressure 131/82 04/14/2021 11:28 AM EST Pulse 97 04/14/2021 11:28 AM EST Temperature 36.8 C (98.3 F) 04/14/2021 11:28 AM EST Respiratory Rate 17 04/14/2021 11:28 AM EST Oxygen Saturation 99% 04/14/2021 11:28 AM EST Inhaled Oxygen Concentration - - Weight 73.2 kg (161 lb 6.4 oz) 04/13/2021 12:00 PM EST Height 177.8 cm (5' 10 ) 04/13/2021 12:00 PM EST Body Mass Index 23.16 04/13/2021 12:00 PM EST Plan of Treatment Health Maintenance Due Date Last Done Comments HIV screening 2000 Influenza vaccine 10/06/2024 Covid-19 vaccine series (2024- season) 2024 Tetanus adult (Td q 10,TDAP once) 01/24/2026 016 RSV Immunization (1 - 1-dose 75+ series) 2062 Hepatitis C screening Completed 03/10/2014 Meningococcal B Vaccine Aged Out No l onger eligible based on patient's age to complete this topic Meningococcal Vaccine Aged Out No isa brie eligible based on patient's age to complete this topic Pneumococcal Vaccine (2 - 49 years) Aged Out No longer eligible b ased on patient's age to complete this topic Procedures Procedure Name Priority Date/Time Associated Diagnosis Comments HEPATITIS GENERAL PANEL (YH) Urgent 03/10/2014 11:05 AM EST from Last 3 Months or Most Recently Relevant to Health Maintenance Results * Hepatitis virus panel, chronic (03/10/2014 11:05 AM EST) Hepatitis B Surface Ag NEGATIVE Negative [facility] Hep B Core Total Ab NEGATIVE Negative [facility] Hepatitis C Ab NEGATIVE Negative [facility] Comment: A negative result does not exclude HCV infection, since antibodies are not detectable for 4-8 weeks after initial infection, or may not develop in compromised hosts. In high- risk individuals, repeat antibody testing in 2 months and/or HCV RNA PCR should be considered. Hepatitis C Antibody Signal/Cutoff Ratio cancelled [facility] Comment: Hepatitis C Antibody Signal/Cutoff (S/CO) Interpretation S/CO < 5.0 Low Positive S/CO >= 5.0 High Positive Hep B s Ab <8 > or = 12 mIU/ml [facility] Comment:Patient is considere d to be not immune to infection with HBV. Blood specimen (specimen) 03/10/2014 11:05 AM EST Stephanie Esparza MD LAB BLOOD ORDERABLES Final Resu lt [facility] [address] [place] [phone] from Last 3 Months or Most Recently Relevant to Health Maintenance Insurance [place]ID [place] Member Subscriber Plan / Payer (Ef fective 2016-Present) Name:Contreras Khan Relation to Subscriber:Self Name:Contreras Khan Payer ID:[id number] Group ID:Not on file Type:Not on file Address: [address] [place] [address] [place] Member Subscriber Plan / Payer (Ef fective 2016-Present) Name:Contreras Khan Relation to Subscriber:Self Name:Contreras Khan Payer ID:[id number] Group ID:Not on file Type:Not on file Address: [address] [place] [address] [place] [address] [address] [place] [address] [place] Advance Directives * Full ACLS (Latest Code Status on File) Date Activated Date Inactivated Comments 10/15/2019 1:22 AM 10/18/2019 4:58 PM Question Answer Comments With Whom was the Code Status Discussed? Patient * Full ACLS Date Activated Date Inactivated Comments 02/01/2016 10:31 AM 02/11/2016 7:44 PM * Full ACLS Date Activated Date Inactivated Comments 01/30/2016 10:46 AM 02/01/2016 10:31 AM * Full ACLS Date Activated Date Inactivated Comments 01/29/2016 7:11 PM 01/30/2016 10:46 AM * Full ACLS Date Activated Date Inactivated Comments 01/27/2016 12:14 AM 01/29/2016 7:11 PM Care Teams Tour Escort Relationship Specialty Start Date End Date Obtain, Unable To PCP - General 06/19/19
--- OUTSIDE RECORDS SUMMARY | 2025-01-27 02:59 | XMS_ITS | Encounter Summary ---
Author Organization [facility] Address [address] [place] [address] Care Team Providers Care Weatherization Administrator Name Role Phone Obtain, Unable To Primary Care Provider Unavaila ble Encounter Details Date Type Department Care Team (Late st Contact Info) Description 04/13/2021 Scanned Document [facility] [address] [place] [address] Felicia Woods, RN Social History Tobacco Use Types Packs/Day Years Used Date Smoking Tobacco: Former Cigarettes 0 Q uit: 12/13/2014 Smokeless Tobacco: Never Alcohol Use Standard Drinks/Week Comments Yes 58 [...] on file Sexual Orientation Not on file COVID-19 Exposure Response Date Recorded In the last month, have you been in contact with someone who was confirmed or suspected to have Coronavirus / COVID-19? Yes 04/13/2021 12:11 PM EST documented as of this encounter Plan of Treatment Not on file documented as of this encounter Visit Diagnoses Not on filedocumented in this encounter Care Teams Weatherization Administrator Relationship Specialty Start Date End Date Obtain, Unable To PCP - General 06/19/19 documented as of this encounter
--- OUTSIDE RECORDS SUMMARY | 2025-01-27 02:59 | XMS_ITS | Encounter Summary ---
Author Organization [facility] Address [address] [place] [address] Care Team Providers Care All Source Intelligence Analyst Name Role Phone Obtain, Unable To Primary Care Provider Unavaila ble Encounter Details Date Type Department Care Team (Late st Contact Info) Description 03/11/2021 Scanned Document [facility] [address] [place] [address] Felicia Woods, RN Social History [...] or suspected to have Coronavirus / COVID-19? No / Unsure 03/11/2021 12:37 PM EST documented as of this encounter Plan of Treatment Not on file documented as of this encounter Visit Diagnoses Not on filedocumented in this encounter Care Teams All Source Intelligence Analyst Relationship Specialty Start Date End Date Obtain, Unable To PCP - General 06/19/19 documented as of this encounter
--- OUTSIDE RECORDS SUMMARY | 2025-01-27 02:59 | XMS_ITS | Clinical Summary ---
Author Organization [facility] Address [address] [place] [address] Care Team Providers Care Bundling Machine Operator Name Role Phone Doreen Goldman Primary Care Provider [phone] Allergies Active Allergy Reactions Criticality Noted Date Comments Fish Containing Products Nausea 06/23/2019 Penicillins Unknown,Hives High 06/27/2016 Sertraline Hcl Nausea And Vomiting High 06/27/2016 ?dystonia Medications disulfiram (ANTABUSE) 250 mg tabletIndicatio ns:alcohol use [...] 06/21/2019 RICK (generalized anxiety disorder) 06/21/2019 Alcoholism ([facility]) 06/06/2019 Cigarette nicotine dependence without complicati on 06/06/2019 Attention deficit disorder (ADD) without hyperac tivity 10/29/2017 Substance abuse 10/29/2017 Anxiety 09/06/2016 Cannabis abuse 03/11/2015 Depressive [...] 100 07/07/2021 10:38 PM EDT Temperature 37.2 C (98.9 F) 07/08/2021 10:35 AM EDT Respiratory Rate 16 07/08/2021 12:19 PM EDT Oxygen Saturation 98% 07/08/2021 2:23 PM EDT Inhaled Oxygen Concentration - - Weight 66 kg (145 lb 8.1 oz) 07/07/2021 10:38 PM EDT Height 177.8 cm (5' 10 ) 07/07/2021 10:38 PM EDT Body Mass Index 20.88 07/07/2021 10:38 PM EDT Plan of Treatment Health Maintenance Due Date Last Done Comments Annual Physical Exam 07/26/2021 07/26/2020, 02/17/2019, 11/16/2017 COVID-19 Vaccine (3 - 2024-2 6 season) 2024 03/31/2021, 06/13/2020 Influenza Vaccine (#1) 2024 Tdap and Td Vaccines Adult 01/24/2026 01/25/2016 HIB Vaccines Aged Out No longer eligi ble based on patient's age to complete this topic HPV Vaccines (No Doses Required) Completed Hepatitis A Vaccines Aged Out No long er eligible based on patient's age to complete this topic IPV Vaccines Aged Out No longer eligi ble based on patient's age to complete this topic Meningococcal Vaccine Aged Out No isa brie eligible based on patient's age to complete this topic Pneumococcal Vaccine: Peds ( 0 to 5 Yrs) and At-Risk Pts (6 to 49 Yrs) Aged Out No longer eligible b ased [...] community Care Plan Aftercare Freda Staley LMFT Additional Health Concerns Active Problems Noted Date Diagnosed Date Depression 07/08/2021 Substance Use 07/08/2021 Aftercare 07/08/2021 Insurance MEDICAID [place] MEDICAID [place] WORKERS COMP Advance Directives * Full Code (Latest Code Status on File) Date Activated Date Inactivated Comments 06/23/2019 3:08 PM 06/26/2019 5:26 PM * Full Code Date Activated Date Inactivated Comments 06/22/2019 1:03 AM 06/23/2019 3:07 PM Care Teams Bundling Machine Operator Relationship Specialty Start Date End Date Doreen Goldman PA PCP - General Internal Medicine 04/13/20
--- OUTSIDE RECORDS SUMMARY | 2025-01-27 02:59 | XMS_ITS | Encounter Summary ---
Author Organization [facility] Address [address] [place] [address] Care Team Providers Care Tobacco Prevention Health Educator Name Role Phone Obtain, Unable To Primary Care Provider Unavaila ble Encounter Details Date Type Department Care Team (Late st Contact Info) Description 04/14/2021 Scanned Document [facility] [address] [place] [address] Norma Villegas LPN Social History Tobacco Use Types Packs/Day Years [...] on filedocumented in this encounter Care Teams Tobacco Prevention Health Educator Relationship Specialty Start Date End Date Obtain, Unable To PCP - General 06/19/19 documented as of this encounter
--- OUTSIDE RECORDS SUMMARY | 2025-01-27 02:59 | XMS_ITS | Encounter Summary ---
Author Organization [facility] Address [address] [place] [address] Care Team Providers Care Superintendent Custodian Janitor Name Role Phone Edna Parrish MD Primary Care Provider [phone] Lissy Rosales ASSOCIATE THEATRE PROFESSOR Unavailable [phone] Anselmo Ferro MD Unavailable +[phone] Jas Fontenot GUN FERTILIZER Unavailable [phone] Azam Cavanaugh LADC Unavailable +[phone] Massimo Morales Unavailable Erum Cash GUN FERTILIZER Unavailable +[phone] Suzanna See ASSOCIATE THEATRE PROFESSOR Unavailable [phone] Gracie Ramírez MD Unavailable + [phone] Ori Argueta ELECTRICAL ASSEMBLY SUPERVISOR Unavailable +[phone] Cole Burris GUN FERTILIZER Unavailable +[phone] Ese Granados GUN FERTILIZER Unavailable +[phone] Clemente Isabel ASSOCIATE THEATRE PROFESSOR Unavailable +[phone] Joanne Corral ELECTRICAL ASSEMBLY SUPERVISOR Unavailable + [phone] Nancy Ly PERSONAL INSURANCE ADVISOR Unavailable +[phone] Flakita Marshall LADC Unavailable +[phone] 0-000-0000 Sarahi Haskins GUN FERTILIZER Unavailable +[phone] Bryce Trinidad Unavailable +[phone] Kamryn Harris ASSOCIATE THEATRE PROFESSOR Unavailable [phone] Jose Francisconiall Jenna ASSOCIATE THEATRE PROFESSOR Unavailable [phone] Jason Chavez ASSOCIATE THEATRE PROFESSOR Unavailable +- [phone] Daniel Abbott ASSOCIATE THEATRE PROFESSOR Unavailable +[phone] Edna Parrish MD Unavailable +[phone] Goldy Oliverera Unavailable Conrad Pearce ASSOCIATE THEATRE PROFESSOR Unavailable +[phone] Clemente Lowery GUN FERTILIZER Unavailable + -[phone] Norbert Savage ASSOCIATE THEATRE PROFESSOR Unavailable Unavailable Sabino Jenna Reed ASSOCIATE THEATRE PROFESSOR Unavailable Jumana Nguyen Unavailable Johnny Ferro COUPLING MACHINE OPERATOR Unavailable +[phone] Mychart, Generic Provider Unavailable +[phone] Carli Guerra LAD Unavailable +[phone] Jayashree Garnica ASSOCIATE THEATRE PROFESSOR Unavailable +[phone] Mary Phipps CALIBRATION CHECKER Unavailable [phone] Nilo Butcher PERSONAL INSURANCE ADVISOR Unavailable +[phone] James Lira MD Unavailable Shaylee Bond PA-C Unavailable [phone] Encounter Details Date Type Department Care Team (Late st Contact Info) Description 12/02/2017 Scanned Document [address] [place] [address] Edna Parrish MD 701 [facility] [address] [place] [address] Social History Tobacco Use Types Packs/Day Years Used Date Smoking Tobacco: Every Day Cigarettes 0.5 12 Smokeless Tobacco: Former Alcohol Use Standard Drinks/Week Comments Yes 0 (1 standard drink = 0.6 oz pure alcohol) not currently. 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, referee - [employer] Not on file Not o n file Not on file documented as of this encounter Plan of Treatment Not on file documented as of this encounter Visit Diagnoses Not on filedocumented in this encounter Care Teams Superintendent Custodian Janitor Relationship Specialty Start Date End Date Edna Parrish MD [address] [address] PCP - General Internal Medicine 10/27/17 05/07/24 Edna Parrish MD [address] [place] [address] PCP - PCMH+ Attributed 03/08/19 Lissy Rosales LCSW [address] [place] [address] Clinician Clinical Social Work 12/13/17 06/04/21 Anselmo Ferro MD [address] [place] [phone] Psychiatry, General 06/27/19 Jas Fontenot LPC [address] [place] [address] E Business Specialist Clinical Social Work 06/27/19 Azam Cavanaugh LADC [address] [place] [address] E Business Specialist Clinical Social Work 06/28/19 Massimo Morales [address] [place] [address] Clinician Social Work 07/03/19 Erum Cash, GUN FERTILIZER [address] [place] [address], [place] [address] E Business Specialist Clinical Social Work 07/14/19 Suzanna See, [facility] [address] [place] [address] Clinician Social Work 10/20/19 Gracie Ramírez MD [address] [place] [address] Psychiatry, General 10/25/19 Ori Argueta, ELECTRICAL ASSEMBLY SUPERVISOR [address] [facility] [place] [address] Clinician Social Work 10/25/19 08/31/21 Cole Burris [facility] [place] [address] E Business Specialist Clinical Social Work 10/26/19 Ese Granados [facility] [place] [address] E Business Specialist Clinical Social Work 10/26/19 Clemente Isabel, [address] [address] Title Abstractor 10/27/19 Joanne Corral, ELECTRICAL ASSEMBLY SUPERVISOR [address] [facility] [place] [address] Clinician Social Work 10/30/19 Nancy Ly APRN [address] [place] [address] Nurse Practitioner Psychiatry, General 10/31/19 Flakita Marshall, [facility] [address] [place] [address] E Business Specialist Clinical Social Work 11/09/19 08/31/21 Sarahi Haskins, [facility] [address] [place] [address] E Business Specialist Clinical Social Work 11/10/19 08/31/21 Bryce Trinidad [address] [place] [address] Clinician 11/16/19 Kamryn Harris, [facility] [address] [place] [address] Clinician Social Work 11/17/19 10/26/21 Jenna Shore, [facility] [address] [place] [address] Clinician Social Work 11/22/19 Jason Chavez, [facility] [address] [employer] [address] E Business Specialist Clinical Social Work 11/23/19 Daniel Abbott, [facility] [address] [place] [address] E Business Specialist Clinical Social Work 12/25/19 10/26/21 Love Oliver [facility] [address] [place] [address] ICP Potato Sorter 01/26/2007/21 Conrad Pearce, [facility] [address] [facility] [address] [place] [address] ICP Community Courtesy Driver 04/18/20 Clemente Lowery, [facility] [address] [place] [address] E Business Specialist Clinical Social Work 05/14/21 Norbert Savage LCSW [address] [place] [address] Primary Clinician Clinical Social Work 05/15/2110/26 Jenna Gallo LCSW [address] [place] [address] Clinician Social Work 08/13/21 10/27/21 Jumana Nguyen [address] [place] [address] Clinician Social Work 08/27/21 Johnny Ferro LMSW [address] [place] [address] Primary Clinician Social Work 09/15/21 10/27/21 Kole Bullock MD [address] [place], [place] [phone] Referring Provider General Activities Therapist 04/16/22 Carli Guerra [facility] [address] [place] [address] E Business Specialist Clinical Social Work 06/10/23 Jayashree Garnica LCSW [address] [place] [address] E Business Specialist Social Work 06/11/23 Mary Phipps LMFT [address] [place] [address] Clinician Social Work 06/14/23 Nilo Butcher APRN [address] [place] [address] Nurse Practitioner Psychiatry, General 06/14/23 James Lira MD [address] [place] [address] Psychiatry, General 06/15/23 Shaylee Bond PA-C [address] [place] [address] Physician Hides And Skins Colorer Psychiatry, General 09/03/23 documented as of this encounter
--- OUTSIDE RECORDS SUMMARY | 2025-01-27 02:59 | XMS_ITS | Encounter Summary ---
Author Organization [facility] Address [address] [place] [address] Care Team Providers Care Rn Patient Services Name Role Phone Obtain, Unable To Primary Care Provider Unavaila ble Encounter Details Date Type Department Care Team (Late st Contact Info) Description 03/11/2021 Scanned Document [facility] [address] [place] [address] Ashli Hirsch Social History Tobacco Use Types Packs/Day Years [...] on filedocumented in this encounter Care Teams Rn Patient Services Relationship Specialty Start Date End Date Obtain, Unable To PCP - General 06/19/19 documented as of this encounter
--- OUTSIDE RECORDS SUMMARY | 2025-01-27 02:59 | XMS_ITS | Clinical Summary ---
Author Organization [facility] Address [address] [place] [address] Care Team Providers Care Auctioneer Automobile Name Role Phone Edna Parrish MD Primary [...] 82 07/28/2022 10:00 AM EDT Temperature 36.7 C (98 F) 07/28/2022 10:00 AM EDT Respiratory Rate 18 [...] Date Last Done Comments HIV Screening 1987 Hepatitis C Screening 2005 Hepatitis B Vaccines (1 of 3 - 19+ 3-dose series) 2006 Pneumococcal Vaccine: At-Ris k and Pediatric Patients (0 to 49 Years) (1 of 2 - PCV) 2006 HPV Vaccines (1 - 3-dose SCD M series) 2014 COVID-19 Vaccine (3 - 2024-2 6 season) 2024 03/31/2021, 06/13/2020 Influenza Vaccine (#1) 2024 DTaP,Tdap,and Td Vaccines (2 - Td or Tdap) 01/24/2026 01/25/2016 Zoster Vaccines (1 of 2) 2037 Hepatitis A Vaccines Aged Out No long er eligible based on patient's age to complete this topic MMR Vaccines Aged Out No longer eligi ble based on patient's age to complete this topic Meningococcal Vaccine Aged Out No isa brie eligible based on patient's age to complete this topic Advance Directives For more information, please contact: [phone] * Full Code (Latest Code Status on File) Date Activated Date Inactivated Comments 07/25/2022 10:32 PM 07/28/2022 1:05 PM Care Teams Auctioneer Automobile Relationship Specialty Start Date End Date Edna Parrish MD 701 [facility] [address] [place] [address] PCP - General Internal Medicine 07/24/22
--- OUTSIDE RECORDS SUMMARY | 2025-01-27 02:59 | XMS_ITS | Encounter Summary ---
Author Organization [facility] Address [address] [place] [address] Care Team Providers Care Aircraft Manager Name Role Phone Obtain, Unable To Primary Care Provider Unavaila ble Encounter Details Date Type Department Care Team (Late st Contact Info) Description 04/13/2021 Scanned Document [facility] [address] [place] [address] Ashli Hirsch Social History Tobacco [...] on filedocumented in this encounter Care Teams Aircraft Manager Relationship Specialty Start Date End Date Obtain, Unable To PCP - General 06/19/19 documented as of this encounter
--- OUTSIDE RECORDS SUMMARY | 2025-01-27 02:59 | XMS_ITS | Encounter Summary ---
Author Organization [facility] Address [address] [place] [address] Care Team Providers Care Lead Consultant Name Role Phone Obtain, Unable To Primary Care Provider Unavaila ble Encounter Details Date Type Department Care Team (Late st Contact Info) Description 03/13/2021 Scanned Document [facility] [address] [place] [address] Norma Villegas LPN Social History [...] on filedocumented in this encounter Care Teams Lead Consultant Relationship Specialty Start Date End Date Obtain, Unable To PCP - General 06/19/19 documented as of this encounter
--- OUTSIDE RECORDS SUMMARY | 2025-01-27 03:00 | XMS_ITS | Encounter Summary ---
Author Organization [facility] Address [address] [place] [address] Care Team Providers Care Manager Continuous Improvement Name Role Phone Edna Parrish MD Primary Care Provider [phone] Anselmo Ferro MD Unavailable + [phone] Jas Fontenot INDUSTRIAL WASTE TREATMENT TECHNICIAN Unavailable [phone] Azam Cavanaugh [facility] Unavailable +[phone]- [phone] Massimo Morales Unavailable Erum Cash INDUSTRIAL WASTE TREATMENT TECHNICIAN Unavailable +[phone] Suzanna See PLANT ASSOCIATE Unavailable +[phone] Gracie Ramírez MD Unavailable + [phone] Cole Burris INDUSTRIAL WASTE TREATMENT TECHNICIAN Unavailable +[phone] Ese Granados INDUSTRIAL WASTE TREATMENT TECHNICIAN Unavailable +[phone] Clemente Isabel PLANT ASSOCIATE Unavailable +[phone] Joanne Corral EVENT SERVICES MANAGER Unavailable + [phone] Nancy Ly RECORD TESTER Unavailable +[phone] Bryce Trinidad Unavailable +[phone] Jenna Shore PLANT ASSOCIATE Unavailable +[phone] Jason Chavez PLANT ASSOCIATE Unavailable + [phone] Love Oliver Unavailable Conrad Pearce PLANT ASSOCIATE Unavailable +[phone] Clemente Lowery INDUSTRIAL WASTE TREATMENT TECHNICIAN Unavailable +[phone] QuintonJumana mcconnell Unavailable +[phone] Kobe, Kole Provider Unavailable + [phone] Carli Guerra [facility] Unavailable +[phone] Jayashree Garnica PLANT ASSOCIATE Unavailable +[phone] MoiseMary Fausto CIRCULAR SAW EDGE FUSER Unavailable + Nilo Butcher RECORD TESTER Unavailable + James Lira MD Unavailable + Shaylee Bond PA-C Unavailable +[phone] Encounter Details Date Type Department Care Team (Late st Contact Info) Description 04/14/2022 Scanned Document [facility] [address] [address] Primary Care, Scan Social History [...] Industry Job Start Date Job End Date [place] Not on file Not on file Not on file COVID-19 Exposure Response Date Recorded In the last 10 days, have yo u been in contact with someone who was confirmed or suspected to have Coronavirus/COVID-19? No / Unsure 04/14/2022 9:39 AM EST documented as of this encounter Functional Status * Question Answer Date of Assessment Author Feeling nervous, anxious, or on edge 3 04/14/2022 9:00 AM Caitlyn Malloy LPN Not being able to stop or control worrying 2 04/14/2022 9:00 AM Caitlyn Malloy LPN Worrying too much about different things 2 04/14/2022 9:00 AM Caitlyn Malloy LPN Trouble relaxing 2 04/14/2022 9:00 AM Caitlyn Keyes LPN Being so restless that it is hard to sit still 3 04/14/2022 9:00 AM Caitlyn Malloy LPN Becoming easily annoyed or irritable 1 04/14/2022 9:00 AM Caitlyn Malloy LPN Feeling afraid as if somethi ng awful might happen 1 04/14/2022 9:00 AM Caitlyn Malloy LPN * Over the past 2 weeks, how often have you been bothered by any of the following problems? Question Answer Date of Assessment Author Patient Health Questionnaire -2 Score 4 04/14/2022 9:00 AM Caitlyn Malloy LPN * Question Answer Date of Assessment Author Patient Health Questionnaire -9 Score 12 04/14/2022 9:00 AM Caitlyn Malloy LPN * Over the last 2 weeks, how often have you been bothered by any of the following problems? Question Answer Date of Assessment Author RICK-7 Total Score 14 04/14/2022 9:00 AM Caitlyn Malloy LPN * Question Answer Date of Assessment Author PHQ-2 Total Score 4 04/14/2022 9:00 AM Caitlyn Malloy LPN Little interest or pleasure in doing things More than half the days 04/14/2022 9:00 AM Caitlyn Malloy LPN Feeling down, depressed, or hopeless More than half the days 04/14/2022 9:00 AM Caitlyn Malloy LPN Trouble falling or staying asleep, or sleeping too much Several days 04/14/2022 9:00 AM Caitlyn Malloy LPN Feeling tired or having little energy Nearly every day 04/14/2022 9:00 AM Caitlyn Malloy LPN Poor appetite or overeating Several days 04/14/2022 9:00 AM Caitlyn Malloy LPN Feeling bad about yourself - or that you are a failure or have let yourself or your family down More than half the days 04/14/2022 9:00 AM Caitlyn Malloy LPN Trouble concentrating on things, such as reading the newspaper or watching television Several days 04/14/2022 9:00 AM Caitlyn Malloy LPN Moving or speaking so slowly that other people could have noticed? Or the opposite - being so fidgety or restless that you have been moving around a lot more than usual. Not at all 04/14/2022 9:00 AM Caitlyn Malloy LPN Thoughts that you would be better off or hurting yourself in some way Not at all 04/14/2022 9:00 AM Susan Malloy LPN PHQ-9 Total Score 12 04/14/2022 9:00 AM Caitlyn Malloy LPN documented as of this encounter Plan of [...] of depression Care Plan Depression No Jason Chavez, PLANT ASSOCIATE I am here for basic needs Care Plan Depression No Jason Chavez, PLANT ASSOCIATE Contreras will increase insight into his mental health. Care Plan Depression No Jason Chavez, PLANT ASSOCIATE Acquire the necessary skills to maintain long-term sobriety from all mood-altering substances and live a life free of chemicals Care Plan Alcohol/Drug No Jason Chavez, LUIS Note: Contreras reports being sober since starting the program. He reports some triggers and urges but reports, they pass quickly. I tell myself I do not want lose all that currently have and have to start over again . I am here for basic needs Care Plan Alcohol/Drug No Jason Chavez, PLANT ASSOCIATE Contreras will improve his sober support system. Care Plan Alcohol/Drug No Jason Chavez, LUIS Note: Contreras has attended over six meetings since starting to attend program. Gain self-insight and awareness through use of MARS tool. Care Plan MARS-12 No Jason Chavez, PLANT ASSOCIATE Contreras completed an updated MARS and scored a (4) on statement (2), I believe I make good choices in my life. Care Plan MARS-12 No Jason Chavez, PLANT ASSOCIATE Note: This score reflects a one point increase. To measure progress in treatment and become aware of strategies to encourage positive outcomes. Care Plan MARS-12 No Jason Chavez, PLANT ASSOCIATE Decrease thoughts that trigger anxiety, and increase positive, self-enhancing self-talk. Care Plan Generalize Anxiety Disorder No Johnny Ferro LMSW Acquire the necessary skills to maintain long-term sobriety from all mood-altering substances. Care Plan ADD-Substance Use Disorders No Pillo, Johnny M, BOAT OUTFITTER documented as of this encounter Visit Diagnoses [...] scored ( 4) on question ( 2), I believe I make good choices in [...] documented as of this encounter Care Teams Manager Continuous Improvement Relationship Specialty Start Date End Date Edna Parrish MD [address] [place] [address] [phone] PCP - General Internal Medicine 10/27/17 05/07/24 Anselmo Ferro MD [address] [place] [address] Psychiatry, General 06/27/19 Jas Fontenot LPC [address] [place] [address] Cartridge Feeder Clinical Social Work 06/27/19 Azam Cavanaugh LADC [address] [place] [address] Cartridge Feeder Clinical Social Work 06/28/19 Massimo Morales [address] [place] [address] Clinician Social Work 07/03/19 Erum Cash LPC [address] [place] [address] Cartridge Feeder Clinical Social Work 07/14/19 Suzanna See LCSW [address] [place] [address] Clinician Social Work 10/20/19 Gracie Ramírez MD [address] [place] [address] [phone] Psychiatry, General 10/25/19 Cole Burris, [facility] [address] [place] [address] Cartridge Feeder Clinical Social Work 10/26/19 Ese Granados, [facility] [address] [place] [address] Cartridge Feeder Clinical Social Work 10/26/19 Clemente Isabel, PLANT ASSOCIATE [address] [place] [address] Body And Fender Mechanic Apprentice 10/27/19 Joanne Corral, EVENT SERVICES MANAGER [address] [place] [address] Clinician Social Work 10/30/19 Nancy Ly APRN [address] [place] [address] Nurse Practitioner Psychiatry, General 10/31/19 Bryce Trinidad [address] [place] [address] Clinician 11/16/19 Jenna Shore, [facility] [address] [place] [address] Clinician Social Work 11/22/19 Jason Chavez, [facility] 883 [facility] [place] [address] Cartridge Feeder Clinical Social Work 11/23/19 Love Oliver [address] [place] [address] ICP Forensic Psychiatrist 01/26/2007/21 Conrad Pearce, [facility] [address] [facility] 4 [place] [address] ICP Community Territory Supervisor 04/18/20 Clemente Lowery LPC [address] [place] [address] Cartridge Feeder Clinical Social Work 05/14/21 Jumana Nguyen [address] [place] [address] Clinician Social Work 08/27/21 Kole Bullock MD [address] [place] [address] [phone] Referring Provider Manager Client Support 04/16/22 Carli Guerra LADC [address] [place] [address] Cartridge Feeder Clinical Social Work 06/10/23 Jayashree Garnica LCSW [address] [place] [address] Cartridge Feeder Social Work 06/11/23 Mary Phipps LMFT [address] [place] [address] Clinician Social Work 06/14/23 Nilo Butcher APRN [address] [place] [address] Nurse Practitioner Psychiatry, General 06/14/23 James Lira MD [address] [place] [address] Psychiatry, General 06/15/23 Shaylee Bond PA-C [address] [place] [address] Physician Senior Mainframe Programmer Analyst Psychiatry, General 09/03/23 documented as of this encounter
--- OUTSIDE RECORDS SUMMARY | 2025-01-27 03:00 | XMS_ITS | Encounter Summary ---
Author Organization [facility] Address [address] [place] [address] Care Team Providers Care Patient Access Name Role Phone Edna Parrish MD Primary Care Provider [phone] Lissy Rosales ADHESIVE SPRAYER Unavailable [phone] Anselmo Ferro MD Unavailable +[phone] Jas Fontenot HAIRSPRING TRUING INSPECTOR Unavailable [phone] Azam Cavanaugh LADC Unavailable +1-000-000- 0000 Massimo Morales Unavailable Erum Cash HAIRSPRING TRUING INSPECTOR Unavailable +1-000-0 00-0000 Suzanna See ADHESIVE SPRAYER Unavailable [phone] Gracie Ramírez MD Unavailable + [phone] Ori Argueta BATTERY TECHNICIAN Unavailable +5280 Cole Burris HAIRSPRING TRUING INSPECTOR Unavailable +5280 Ese Granados HAIRSPRING TRUING INSPECTOR Unavailable +5280 Clemente Isabel ADHESIVE SPRAYER Unavailable +[phone] Joanne Corral BATTERY TECHNICIAN Unavailable + 5280 Nancy Ly PAN PUSHER Unavailable +5280 Flakita Marshall LADC Unavailable +[phone] 0-000-0000 Sarahi Haskins HAIRSPRING TRUING INSPECTOR Unavailable +[phone] Bryce Trinidad Unavailable +-[phone] Kamryn Harris ADHESIVE SPRAYER Unavailable +[phone] Jose Francisconiall Jenna ADHESIVE SPRAYER Unavailable [phone] Jason Chavez ADHESIVE SPRAYER Unavailable +- [phone] Daniel Abbott ADHESIVE SPRAYER Unavailable +[phone] Edna Parrish MD Unavailable +[phone] Goldy Oliverera Unavailable Conrad Pearce ADHESIVE SPRAYER Unavailable +[phone] Clemente Lowery HAIRSPRING TRUING INSPECTOR Unavailable + -[phone] Norbert Savage ADHESIVE SPRAYER Unavailable Unavailable Sabino Jenna Reed ADHESIVE SPRAYER Unavailable Jumana Nguyen Unavailable [phone] Johnny Ferro DEPOSIT CLERK Unavailable +[phone] Mychart, Generic Provider Unavailable +[phone] Carli Guerra LAD Unavailable +[phone] Jayashree Garnica ADHESIVE SPRAYER Unavailable +[phone] Mary Phipps VETERINARY MEAT INSPECTOR Unavailable +[phone] Nilo Butcher PAN PUSHER Unavailable +[phone] James Lira MD Unavailable Shaylee Bond PA-C Unavailable [phone] Encounter Details Date Type Department Care Team (Late st Contact Info) Description 10/05/2018 Scanned Document [address] [place] [address] Edna Parrish MD 701 [facility] Eliud [address] [place] [address] Social History Tobacco Use Types [...] on filedocumented in this encounter Care Teams Patient Access Relationship Specialty Start Date End Date Edna Parrish MD [address] [address] PCP - General Internal Medicine 10/27/17 05/07/24 Edna Parrish MD [address] [place] [address] [phone] PCP - PCMH+ Attributed 03/08/19 Lissy Rosales LCSW [address] [place] [address] Clinician Clinical Social Work 12/13/17 06/04/21 Anselmo Ferro MD [address] [place] [address] [phone] Psychiatry, General 06/27/19 Jas Fontenot LPC [address] [place] [address] Marine Firer Clinical Social Work 06/27/19 Azam Cavanaugh LADC [address] [place] [address] Marine Firer Clinical Social Work 06/28/19 Massimo Morales [address] [place] [place] [address] Clinician Social Work 07/03/19 Erum Cash LPC [address] [place] [address], [place] [address] Marine Firer Clinical Social Work 07/14/19 Suzanna See, [facility] [address] [place] [place] [address] Clinician Social Work 10/20/19 Gracie Ramírez MD [address] [place] [address] Psychiatry, General 10/25/19 Ori Argueta, BATTERY TECHNICIAN [address] [place] [address] Clinician Social Work 10/25/19 08/31/21 Cole Burris [facility] [place] [address] Marine Firer Clinical Social Work 10/26/19 Ese Granados [facility] 3 [place] [address] Marine Firer Clinical Social Work 10/26/19 Clemente Isabel, [address] [address] Turret Punch Press Operator 10/27/19 Joanne Corral, [facility] [address] [place] [address] Clinician Social Work 10/30/19 Nancy Ly APRN [address] [place] [address] Nurse Practitioner Psychiatry, General 10/31/19 Flakita Marshall, [facility] [address] [place] [address] Marine Firer Clinical Social Work 11/09/19 08/31/21 Sarahi Haskins, [facility] [address] [place] [address] Marine Firer Clinical Social Work 11/10/19 08/31/21 Bryce Trinidad [address] [place] [address] Clinician 11/16/19 Kamryn Harris, [facility] [address] [place] [address] Clinician Social Work 11/17/19 10/26/21 Jenna Shore, [facility] [address] [place] [address] Clinician Social Work 11/22/19 Jason Chavez, [facility] [address] [place] [address] Marine Firer Clinical Social Work 11/23/19 Daniel Abbott, [facility] [address] [place] [address] Marine Firer Clinical Social Work 12/25/19 10/26/21 Love Oliver [facility] [address] [place] [address] ICP Audit Analyst 01/26/2007/21 Conrad Pearce, [facility] [address] [facility] 4 [place] [address] ICP Community Mortgage Loan Counselor 04/18/20 Clemente Lowery, [facility] [address] [place] [address] Marine Firer Clinical Social Work 05/14/21 Norbert Savage LCSW [address] [place] [address] Primary Clinician Clinical Social Work 05/15/2110/26 Jenna Gallo LCSW [address] [place] [address] Clinician Social Work 08/13/21 10/27/21 Jumana Nguyen [address] [place] [address] Clinician Social Work 08/27/21 [place] [address] Primary Clinician Social Work 09/15/21 10/27/21 Kole Bullock MD [address] [place] [address] [phone] Referring Provider Barge Engineer 04/16/22 Carli Guerra [facility] [address] [place] [address] Marine Firer Clinical Social Work 06/10/23 Jayashree Garnica LCSW [address] [place] [address] Marine Firer Social Work 06/11/23 Mary Phipps LMFT [address] [place] [address] Clinician Social Work 06/14/23 Nilo Butcher APRN 73 [place] [address] Nurse Practitioner Psychiatry, General 06/14/23 James Lira MD [address] [place] [address] Psychiatry, General 06/15/23 Shaylee Bond PA-C [address] [place] [address] Physician Electrician'S Assistant Psychiatry, General 09/03/23 documented as of this encounter
--- OUTSIDE RECORDS SUMMARY | 2025-01-27 03:00 | XMS_ITS | Clinical Summary ---
Author Organization [facility] Address [address] [facility] [address] [place] [address] Phone Care Team Providers Care Care Management Assistant Name Role Phone Edna Parrish MD Primary Care Provider [phone] Allergies Active Allergy Reactions Criticality Noted Date Comments Penicillins 03/05/2024 Sertraline 03/05/2024 Medications chlordiazePOXID E (LIBRIUM) 25 MG capsule Take 1 capsule (25 mg total) by mouth 4 (four) times a day for 1 day, THEN 1 capsule (25 mg total) 3 (three) times a day for 1 day, THEN 1 capsule (25 mg total) 2 (two) times a day for 1 day. 9 capsule 03/05/2024 Active Social History Tobacco Use Types Packs/Day Years Used Date Smoking Tobacco: Former Cigarettes Smokeless Tobacco: Never Tobacco Cessation:Counseling Given: Not Answered Alcohol Use Standard Drinks/Week Comments Yes 0 (1 standard drink = 0.6 oz pur e alcohol) Education Answer Date Recorded Are you interested in more education? Not on raphael e 03/05/2024 Are you concerned about learning? Not on file 03/05/2024 No 03/05/2024 No 03/05/2024 Digital Access Answer Date Recorded No 03/05/2024 No 03/05/2024 Reliable internet access at home? Not on file 03/05/2024 Device with a working camera? Not on file Intimate Partner Violence Answer Date R ecorded Are you denied basic needs s uch as food, clothing, or medical care? No 03/05/2024 In the past 12 months have y ou been in a relationship with a person who hurts, threatens, or tries to control you? No 03/05/2024 Are you denied basic needs s uch as food, clothing, or medical care? No 03/05/2024 In the past 12 months have y ou been in a relationship with a person who hurts, threatens, or tries to control you? No 03/05/2024 Sex and Gender Information Value Date Recorded Sex Assigned at Not on file Legal Sex Male 2:39 PM EST Gender Identity Not on file Sexual Orientation Not on file Last Filed Vital Signs Vital Sign Reading Time Taken Comments Blood Pressure 147/91 03/05/2024 2:46 PM EST Pulse 104 03/05/2024 2:46 PM EST Temperature 36.6 C (97.9 F) 03/05/2024 2:46 PM EST Respiratory Rate 18 03/05/2024 2:46 PM EST Oxygen Saturation 95% 03/05/2024 2:46 PM EST Inhaled Oxygen Concentration - - Weight 72.6 kg (160 lb) 03/05/2024 2:46 PM EST Height 177.8 cm (5' 10 ) 03/05/2024 2:46 PM EST Body Mass Index 22.96 03/05/2024 2:46 PM EST Plan of Treatment Health Maintenance Due Date Last Done Comments LIPID PANEL 1987 DEPRESSION SCREENING 1999 SMOKING Hx and SMOKELESS TOBACCO SCREENING 2000 HIV ONE-TIME SCREENING (18-6 5 YEARS) 2005 INFLUENZA VACCINE (#1) 2024 COVID-19 VACCINE (2024-2 6 season) 2024 Adult Td,Tdap Booster 01/24/2026 01/25/2016 HEPATITIS C SCREENING Completed 08/23/2023 , 11/06/2019 HEPATITIS A VACCINES Aged Out No long er eligible based on patient's age to complete this topic HIB VACCINES Aged Out No longer eligi ble based on patient's age to complete this topic MENINGOCOCCAL VACCINES (ACWY) Aged Out No longer eligible based on patient's age to complete this topic MENINGOCOCCAL VACCINES (B) Aged Out N o longer eligible based on patient's age to complete this topic PNEUMOCOCCAL VACCINES (0-49 years) Aged Out No longer eligible b ased on patient's age to complete this topic Medical Devices Not on file Insurance MEDICAID [place] [address] [address] MEDICAID MEDICAID MEDICAID Care Teams Care Management Assistant Relationship Specialty Start Date End Date Edna Parrish MD [address] [place] [id number] PCP - General Internal Medicine 03/05/24 Additional Source Comments The information contained in this document represents components of the legal health record. It is not the complete legal health record.[facility]
--- OUTSIDE RECORDS SUMMARY | 2025-01-27 03:00 | XMS_ITS | Clinical Summary ---
Author Organization [facility] Address [address] [place] [address] Care Team Providers Care Consulting Services Project Manager Name Role Phone Anselmo Ferro MD Unavailable +[phone] Jas Fontenot SPOT REMOVER Unavailable [phone] Mao Azam LAD Unavailable [phone] Massimo Morales Unavailable Erum Cash SPOT REMOVER Unavailable [phone] Suaznna See POCKET FLAP CREASING MACHINE OPERATOR Unavailable [phone] Gracie Ramírez MD Unavailable +80 Cole Burris SPOT REMOVER Unavailable +80 Ese Granados SPOT REMOVER Unavailable +80 Clemente Isabel POCKET FLAP CREASING MACHINE OPERATOR Unavailable [phone] Joanne Corral GEOPHYSICAL LABORATORY SUPERVISOR Unavailable +80 Nancy Ly LUBE ATTENDANT Unavailable +80 Bryce Trinidad Unavailable +[phone] Jenna Shore POCKET FLAP CREASING MACHINE OPERATOR Unavailable [phone] Jason Chavez POCKET FLAP CREASING MACHINE OPERATOR Unavailable +80 Conrad Pearce POCKET FLAP CREASING MACHINE OPERATOR Unavailable [phone] Clemente Lowery SPOT REMOVER Unavailable +80 Jumana Nguyen Unavailable [phone] Kole Bullock MD Unavailable [phone] Carli Guerra LAD Unavailable [phone] NahunShaistaJayashree A POCKET FLAP CREASING MACHINE OPERATOR Unavailable [phone] MoiseRoulaMary Fausto WHEEL ASSEMBLER Unavailable +[phone] ButcherNilo Lynda LUBE ATTENDANT Unavailable [phone] James Lira MD Unavailable Shaylee BondC Unavailable [phone] Allergies Active Allergy Reactions Criticality Noted Date Comments Fish Protein-Containing Drug Products Unknown/Patient and Family Unable to Define Medium 06/19/2019 Penicillins Hives High 06/27/2016 Sertraline Hcl GI Intolerance/Nausea/Vomit ing High 06/27/2016 ?dystonia Medications * This document contains information received from the source organization and may not represent a complete record from that organization. mirtazapine (REMERON) 15 MG tabletIndicatio ns:Major depressive disorder, recurrent episode, moderate (HCC) Take 1 tablet (15 mg total) by mouth nightly. 10 tablet 09/08/2023 Active gabapentin (NEURONTIN) 300 MG capsuleIndicati ons:Severe alcohol use disorder (HCC) Take 2 capsules (600 mg total) by mouth 3 (three) times a day. 60 capsule 09/16/2023 Active Active Problems Patient Care Coordination No te Formatting of this note migh t be different from the original. 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 hyperac tivity 10/29/2017 Immunizations Immunization Administration Dates Next Due PPD Test 02/04/2016 [...] Industry Job Start Date Job End Date Unemployed Not on file Not on file Not on file Last Filed Vital Signs Vital Sign Reading Time Taken Comments Blood Pressure 100/60 09/16/2023 2:45 PM EDT Pulse 73 09/16/2023 2:45 PM EDT Temperature 36.9 C (98.5 F) 09/16/2023 2:45 PM EDT Respiratory Rate 18 09/16/2023 2:45 PM EDT Oxygen Saturation 96% 09/16/2023 2:45 PM EDT Inhaled Oxygen Concentration - - Weight 75.8 kg (167 lb) 09/16/2023 2:45 PM EDT Height 177.8 cm (5' 10 ) 09/16/2023 2:45 PM EDT Body Mass Index 23.96 09/16/2023 2:45 PM EDT Plan of Treatment Health Maintenance Due Date Last Done Comments COVID-19 Vaccine ( season) 2024, 06/13/2020 DTaP/Tdap/Td Vaccines (2 - Td or Tdap) 01/24/2026 HIV Screening Completed 08/23/2023, 11/06/2019 Hepatitis C Virus Screening Completed 08/23/2023, 0 11/06/2019 HPV Vaccines (No Doses Required) Completed Hepatitis B Vaccines Discontinued Influenza Vaccine Discontinued Pneumococcal Vaccine: Pediat sagrario (0-5 Years) and At-Risk Patients (6 to [...] depression Care Plan Depression No Jason Chavez, LUIS I am here for basic needs Care Plan Depression No Jason Chavez LCSW Contreras will increase insight into his mental health. Care Plan Depression No Jason Chavez LCSW Acquire the necessary skills to maintain long-term sobriety from all mood-altering substances and live a life free of chemicals Care Plan Alcohol/Drug No Jason Chavez LCSW Note: Contreras reports being sober since starting the program. He reports some triggers and urges but reports, they pass quickly. I tell myself I do not want lose all that currently have and have to start over again . I am here for basic needs Care Plan Alcohol/Drug No Jason Chavez LCSW Contreras will improve his sober support system. Care Plan Alcohol/Drug No Jason Chavez LCSW Note: Contreras has attended over six meetings since starting to attend program. Gain self-insight and awareness through use of MARS tool. Care Plan MARS-12 No Jason Chavez LCSW Contreras completed an updated MARS and scored a (4) on statement (2), I believe I make good choices in my life. Care Plan MARS-12 No Jason Chavez LCSW Note: This score reflects a one point increase. To measure progress in treatment and become aware of strategies to encourage positive outcomes. Care Plan MARS-12 No Jason Chavez LCSW Decrease thoughts that trigger anxiety, and increase [...] Ag/Ab, 4th Gen NON-REACT [place] NON-REACT [place] [employer] Comment: HIV-1 antigen and HIV-1/HIV-2 antibodies were not detected. There is no laboratory evidence of HIV infection. PLEASE NOTE: This information has been disclosed to you from records whose confidentiality may be protected by state law. If your state requires such protection, then the state law prohibits you from making any further disclosure of the information without the specific written consent of the person to whom it pertains, or as otherwise permitted by law. A general authorization for the release of medical or other information is NOT sufficient for this purpose. For additional information please refer to http://[employer]/faq/FZV186 (This link is being provided for informational/ educational purposes only.) The performance of this assay has not been clinically validated in patients less than 2 years old. 08/23/2023 7:40 AM EDT 08/23/2023 9:37 AM EDT Elen K Anitajamari LUN LAB BLOOD ORDERABLES Final Result Performing Organization Address [facility] de Phone Number [employer] [address] [place] [phone] * HEPATITIS C VIRUS (HCV) ANTIBODY (08/23/2023 7:40 AM EDT) Pathologist [facility] Hepatitis C Antibody NON-REACT [place] NON-REACT [employer] Comment: HCV antibody was non-reactive. There is no laboratory evidence of HCV infection. In most cases, no further action is required. However, if recent HCV exposure is suspected, a test for HCV RNA (test code 38896) is suggested. For additional information please refer to http://[employer]/faq/ODX23i2 (This link is being provided for informational/ educational purposes only.) 08/23/2023 7:40 AM EDT 08/23/2023 9:37 AM EDT Elen Bertha Liamo LUBE ATTENDANT LAB BLOOD ORDERABLES Final Result Performing Organization Address [facility] de Phone Number [employer] [address] [place] [phone] from Last 3 Months or Most Recently [...] Anxiety Disorder 10/08/2021 ADD-Substance Use Disorders 10/08/2021 Insurance [facility] Member Subscriber Plan / Payer (Ef fective 2018-Present) Name:Contreras Khan Relation to Subscriber:Self Name:Contreras Khan Payer ID:Not on file Group ID:Not on file Type:Workers Compensation Address: [address] Care Teams Consulting Services Project Manager Relationship Specialty Start Date End Date Anselmo Ferro MD [address] [place] [address] Psychiatry, General 06/27/19 Jas Fontenot LPC [address] [place] [phone] Digital Strategy Specialist Clinical Social Work 06/27/19 Azam Cavanaugh LADC [address] [place] [phone] Digital Strategy Specialist Clinical Social Work 06/28/19 Massimo Morales [address] [place] [phone] (Work) Clinician Social Work 07/03/19 Erum Cash LPC [address] [place], [place] [phone] Digital Strategy Specialist Clinical Social Work 07/14/19 Suzanna See, [facility] [address] [place], [place] [phone] Clinician Social Work 10/20/19 Gracie Ramírez MD [address] [place] [address] Psychiatry, General 10/25/19 Cole Burris SPOT REMOVER [address] [place] [address] Digital Strategy Specialist Clinical Social Work 10/26/19 Ese Granados SPOT REMOVER [address] [place] [address] Digital Strategy Specialist Clinical Social Work 10/26/19 Clemente Isabel, [address] [address] [employer] Support Planner 10/27/19 Joanne Corral, [facility] [place] [address] Clinician Social Work 10/30/19 Nancy Ly APRN [address] [place] [address] Nurse Practitioner Psychiatry, General 10/31/19 Bryce Trinidad [address] [place] [address] Clinician 11/16/19 Jenna Shore LCSW [address] [place] [phone] Clinician Social Work 11/22/19 Jason Chavez LCSW [address] [place] [address] Digital Strategy Specialist Clinical Social Work 11/23/19 Conrad Pearce, POCKET FLAP CREASING MACHINE OPERATOR [address] [facility] [address] [place] [address] [facility] Community Pyrotechnist 04/18/20 Clemente Lowery LPC [address] [place] [address] Digital Strategy Specialist Clinical Social Work 05/14/21 Jumana Nguyen [address] [place] [phone] Clinician Social Work 08/27/21 Kole Bullock MD [address] [place] [address] [phone] Referring Provider Staff Anesthesiologist 04/16/22 Carli [facility]erra [facility] [address] [place] [phone] Digital Strategy Specialist Clinical Social Work 06/10/23 Jayashree Garnica LCSW [address] [place], [place] [address] Digital Strategy Specialist Social Work 06/11/23 Mary Phipps LMFT [address] [place] [address] Clinician Social Work 06/14/23 Nilo Butcher APRN [address] [place] [address] Nurse Practitioner Psychiatry, General 06/14/23 James Lira MD [address] [place] [address] Psychiatry, General 06/15/23 Shaylee Bond PA-C [address] [place] [phone] Physician Potato Loader Psychiatry, General 09/03/23
--- NOTE | 2025-01-27 03:23 | PC.NURSE ---
Kate EDT is now 1:1 with patient. labs/urine obtained by this RN, pt requested a sandwich upon completion. given per request. pt remains in [facility] at this time. med list completed with pt. states he only takes gabapentin 600mg PO TID and no other medications at this time. Annetta RAMOS made aware of the bruising and stated will evaluate.
[2025-01-27 03:24] LABS: MANUAL DIFF FLAG NO
[2025-01-27 03:26] LABS: Hematocrit 41.9 % (42.0-52.0); Hemoglobin 14.1 g/dl (14.0-18.0); Imm Gran Abs Auto 0.01 X10*3/uL (0.00-0.03); Imm Gran Pct Auto 0.1 % (0.0-0.4); Lymphocytes Absolute Auto 2.2 X10*3/uL (1.2-4.9); Mean Corpuscular HGB Conc 33.7 g/dl (31.0-36.0); Mean Corpuscular Hemoglobin 27.4 pg (27.0-33.0); Mean Corpuscular Volume 81.4 fL (80.0-98.0); NRBC Abs Auto 0.000 X10*3/uL (0.0-0.012); NRBC Pct Auto 0.0 /100WBC (0.0-0.2); Platelet Count 132 X10*3/uL (160-400); Red Blood Count 5.15 X10*6/uL (4.60-5.80); White Blood Count 7.3 X10*3/uL (4.8-10.8)
[2025-01-27 03:38] LABS: Cannabinoid Screen Urine POSITIVE (Not Detect)
[2025-01-27 03:40] LABS: Alanine Aminotransferase 78 U/L (0-40); Albumin Level 5.1 g/dL (3.5-5.0); Alkaline Phosphatase 72 U/L (39-117); Anion Gap 21 (12-20); Aspartate Amino Transferase 64 U/L (5-37); Blood Urea Nitrogen 12 mg/dL (9-16); Calcium 8.7 mg/dL (8.4-10.2); Carbon Dioxide 27 mmol/L (22-29); Chloride 95 mmol/L (96-108); Creatinine Clr Calc Pharmacy 163.1; Estimated Glomerular Filt Rate > 60; Magnesium 2.0 mg/dL (1.6-2.6); Potassium 3.9 mmol/L (3.3-5.1); Sodium 139 mmol/L (135-145); Total Protein 7.9 g/dL (6.5-8.0)
[2025-01-27 03:48] LABS: Acetaminophen LAB < 3 mcg/mL (<30); Salicylate < 5.0 mg/dL (15-30)
--- NOTE | 2025-01-27 04:42 | ED.GENADULT ---
HPI - General Adult General Chief complaint: Psychiatric Symptoms Stated complaint: General Medical Time Seen by Provider: 01/27/25 02:50 Source: patient Limitations: no limitations History of Present Illness ED Provider: Annetta Agee PA-C HPI narrative: 39-year-old male with a history of alcohol use disorder, depression, who presents with SI. Patient states he has had increased psychosocial stressors, that have caused him to binge drink. Patient is now having thoughts of self-harm, without a specific plan. Patient denies that he has had seizure activity related to alcohol withdrawal. Patient last drank prior to arrival to the emergency room. Related Data Home Medications ?Medication ?Instructions ?Recorded ?Confirmed gabapentin 600 mg tablet 600 mg PO TID 01/27/25 01/27/25 Allergies Allergy/AdvReac Type Severity Reaction Status Date / Time Penicillins (PCN) Allergy Itching Verified 01/27/25 02:49 [facility] Past Medical History Medical History (Updated 01/27/25 @ 04:45 by RICHARD Ernst) Alcohol use disorder Social History Social History Household Members: Significant Other Housing: House Do you presently have visiting nurse or other home services: No Alcohol intake: current Alcohol intake frequency: 3 or more drinks per day Alcohol type: hard liquor Patient Tobacco Use Status: Never used Tobacco Second Hand Smoke Exposure: No Substance Use Type: Marijuana Advance Directives: No Advance Directives Information Provided: No Do you have a plan to hurt others: No Plan service: No Physical Exam ED Vital Signs: Vital Signs - 24 hr 01/27/25 02:46 01/27/25 07:12 Temperature 98.9 F 98.0 F Pulse Rate 94 117 H Respiratory Rate 18 18 Blood Pressure 139/87 138/87 Pulse Oximetry 97 95 Oxygen Delivery Method Room Air Room Air BMI result Body Mass Index 24.4 Course Reevaluation(s) Reevaluation #1: Time: 04:45 Date: 01/27/25 Provider: RICHARD Ernst Patient in physician observation for psychiatric evaluation.? No acute events reported overnight. No current complaints. VS stable.? Patient is in bed search status/pending CARE team evaluation. Will continue to monitor. Reevaluation #2: 01/27/25 Provider: Jan Graves MD 05:17 Patient in physician observation for psychiatric evaluation.? No acute events reported overnight. No current complaints. VS stable.? Patient is pending CARE team evaluation. CBC was normal. CMP revealed an elevated AST and ALT of 64 and 78 most likely caused by alcohol use disorder Urinalysis was negative. U tox was positive for THC (marijuana). Ethanol level was elevated at 358. Patient will need to be sober for evaluation by care team.Will continue to monitor. 10:13 The patient was evaluated by the care team and at this time the patient is not suicidal and cleared by the care team. Patient is interested in detox for his alcohol use disorder. Recovery team was consulted and will do a bed search on the patient. She will be kept in the emergency department until appropriate disposition can be determined. 14:00 Physician observation ended at 14:00 hours. Patient was seen by the recovery team clinician. [place] [facility] [place] The patient will be sent by a Lyft. Patient was discharged with printed and verbal instructions. Medications Administered Discontinued Medications Generic Name Dose Route Start Last Admin Trade Name Curt PRN Reason Stop Dose Admin Gabapentin 600 mg 01/27/25 09:00 01/27/25 14:10 Gabapentin 600 Mg Tablet PO 600 mg TID FERMIN Administration Lorazepam 2 mg 01/27/25 07:40 01/27/25 08:17 Lorazepam 1 Mg Tablet PO 2 mg Q4H PRN Administration Alcohol withdrawal, agitation Lorazepam 2 mg 01/27/25 14:11 01/27/25 14:19 Lorazepam 1 Mg Tablet PO 01/27/25 14:12 2 mg ONCE STA Administration Medical Decision Making Medical Decision Making MDM Narrative: 39-year-old male with a history of alcohol use disorder, depression, who presents with SI. Patient states he has had increased psychosocial stressors, that have caused him to binge drink. Patient is now having thoughts of self-harm, without a specific plan. Patient denies that he has had seizure activity related to alcohol withdrawal. Patient last drank prior to arrival to the emergency room. Problem: Alcohol use disorder, depression History: Per patient I have considered the following differential diagnoses: SI, HI, decompensated psychiatric illness, drug/alcohol intoxication Plan: Patient will be referred to the care team, screening labs including ethanol and drug screen we will be obtained. We will place a CIWA scale I have independently reviewed the following tests: Labs: No leukocytosis, not anemic, no electrolyte abnormality, ethanol 358, drug screen positive for marijuana Differential Diagnosis Differential Diagnoses: The differential diagnosis associated with the presentation includes See MDM Admission/Observation Consideration of admission/observation: Escalation of care including admission/observation considered Consult Healthcare Provider Management of the patient was discussed with: Behavioral Health Provider Care team Lab Data [facility] Lab Attestation statement: I reviewed the patient's lab results. 01/27/25 03:19 01/27/25 03:19 Labs: Lab Results 01/27/25 Range/Units 03:19 WBC 7.3 (4.8-10.8) X10*3/uL RBC 5.15 D (4.60-5.80) X10*6/uL Hgb 14.1 D (14.0-18.0) g/dl Hct 41.9 L D (42.0-52.0) % MCV 81.4 (80.0-98.0) fL MCH 27.4 (27.0-33.0) pg MCHC 33.7 (31.0-36.0) g/dl RDW 15.2 (11.0-16.0) % Plt Count 132 L (160-400) X10*3/uL MPV 9.5 (9.4-12.4) fL Immature Gran % (Auto) 0.1 (0.0-0.4) % Neut % (Auto) 64.6 (45-73) % Lymph % (Auto) 29.6 (20-40) % [place] % (Auto) 5.1 (2-11) % Eos % (Auto) 0.1 (0-4) % Baso % (Auto) 0.5 (0-2) % Lymph # (Auto) 2.2 (1.2-4.9) X10*3/uL [place] # (Auto) 0.4 (0.1-1.2) X10*3/uL Eos # (Auto) 0.0 (0.0-0.4) X10*3/uL Baso # (Auto) 0.0 (0.0-0.2) X10*3/uL Abs Immat Gran (auto) 0.01 (0.00-0.03) X10*3/uL Absolute Neuts (auto) 4.7 (2.0-8.3) x10*3/uL Absolute Nucleated RBC 0.000 (0.0-0.012) X10*3/uL Nucleated RBC % (auto) 0.0 (0.0-0.2) /100WBC Sodium 139 (135-145) mmol/L Potassium 3.9 (3.3-5.1) mmol/L Chloride 95 L (96-108) mmol/L Carbon Dioxide 27 (22-29) mmol/L Anion Gap 21 H (12-20) BUN 12 (9-16) mg/dL Creatinine 0.64 (0.5-1.4) mg/dL Estim Creat Clear Calc 163.1 Estimated GFR > 60 Random Glucose 97 (60-115) mg/dL Calcium 8.7 D (8.4-10.2) mg/dL Magnesium 2.0 (1.6-2.6) mg/dL Total Bilirubin 0.9 (0.0-1.0) mg/dL AST 64 H (5-37) U/L ALT 78 H (0-40) U/L Alkaline Phosphatase 72 (39-117) U/L Total Protein 7.9 (6.5-8.0) g/dL Albumin 5.1 H (3.5-5.0) g/dL Salicylates < 5.0 L (15-30) mg/dL Urine Opiates Screen Not Detected (Not Detect) Ur Buprenorphine Scrn Not Detected (Not Detect) ng/mL Ur Oxycodone Screen Not Detected (Not Detect) ng/mL Urine Methadone Screen Not Detected (Not Detect) ng/mL Urine Fentanyl Screen Not Detected (Not Detect) Acetaminophen < 3 (<30) mcg/mL Ur Barbiturates Screen Not Detected (Not Detect) Ur Phencyclidine Scrn Not Detected (Not Detect) Ur Amphetamines Screen Not Detected (Not Detect) U Benzodiazepines Scrn Not Detected (Not Detect) Urine Cocaine Screen Not Detected (Not Detect) U Marijuana (THC) Screen POSITIVE H (Not Detect) Ethyl Alcohol 358 H* mg/dL Discharge Plan Discharge Clinical Impression: Alcohol use disorder, severe, dependence, Suicidal ideation Alcohol intoxication Qualifiers: Complication of substance-induced condition: with unspecified complication Qualified Code(s): F10.929 - Alcohol use, unspecified with intoxication, unspecified Patient Disposition: Xfer Other Additional Instructions: You have been accepted to the [facility]. Please follow the recovery counselors instructions. He will be transported by [employer]. Continue taking your medications as prescribed by your providers. Please return to the emergency department if your symptoms get worse or if you develop any symptoms that are concerning to you. Behavioral health instructions: You were seen in our Emergency Department today for treatment of a behavioral health issue. It is important after your visit that you follow up with either your behavioral health provider or a primary care doctor within 7 days.? If you have trouble finding a therapist after you get out of your detox program, you can reach out to [address] [phone] The National Suicide and Crisis Lifeline can be reached 7 days a week 24 hours a day.? Call 988 to speak with someone.? Return for any worsening symptoms or concerns such as thoughts of self harm or harm to others. Please call 911 if you feel your mental health is worsening.? Alcohol use disorder You were seen in the Emergency Department today for treatment of alcohol use disorder.? Your being transferred to detox facility. After you get out of your detox program, if you need more help you can call our outpatient Addiction Treatment office:? [facility] (M-F 9a-5p) [address] [address] Prescriptions: No Action gabapentin 600 mg tablet 600 mg PO TID Interventions: Tom [place]-Suicide Risk Severity Scale Last Done: 01/27/25 03:06 Discharge Date/Time: 01/27/25 14:28 Print Language: Zambian
--- NOTE | 2025-01-27 05:37 | PC.NURSE ---
Report received from RN Ha. Patient arrived to unit at approx 04:15. Changed over in the MAIN and does not have personal belongings. Presents as calm and cooperative. Endorsed vague +SI, no plan/intent. Denies HI/AVH. Agreeable to alert staff if feeling unsafe. CIWA completed at 0500 with a score of 2. Denies history of withdrawal or seizures. Denies current pain/discomfort. 15 [address] checks in place. Patient is in bed search status/pending CARE team evaluation.
[2025-01-27 07:12] VITALS: BP 138/87; PULSE 117; RESP 18; TEMP 36.7; O2SAT 95
--- NOTE | 2025-01-27 07:44 | PC.NURSE ---
Assumed care, report received. Pt is anxious this AM, He scores 11 on his CIWA, he is shaking, mild dizziness and nausea. He continues to endorse SI.
--- NOTE | 2025-01-27 11:39 | MHC.RECOVRN ---
ATS referrals sent per pt request to: [facility] [place] f/u shortly via phone call
--- NOTE | 2025-01-27 14:08 | MHC.RECOVRN ---
Pt accepted at [facility] for detox and is expected there maria fernanda. Pt will be transported there via Lyft called by this RN.
== END 2025-01-27 14:28 | disposition other institution (70) ==
PROVIDERS: Physician Assistant Medical; Emergency Provider Emergency Medicine; PCP Family Medicine
DX: F10.229 Alcohol dependence with intoxication, unspecified (principal); Y90.8 Blood alcohol level of 240 mg/100 ml or more; R45.851 Suicidal ideations; F43.9 Reaction to severe stress, unspecified; Z51.81 Encounter for therapeutic drug level monitoring; Z79.899 Other long term (current) drug therapy
CPT/HCPCS: 36415; 80053; 80143; 80179; 80307; 83735; 85025; 99285; S9485